=== PATIENT | female | born 1940 | race Caucasian/White ===

== ENCOUNTER 2018-05-04 17:58 | Inpatient (IN) | payer MEDICARE, OTHER ==
[~2018-05-04] VITALS: Ht 149.9 cm; Wt 53.1 kg
[~2018-05-04 17:58] MED LIST: ASPIRIN81 M1 PO; GABAPENTIN800 MG PO; OMEPRAZOLE40 MG PO; OXYBUTYNIN CHLOR5 MG PO; TENORMIN50 MG PO; [UNRECOGNIZED DRUG - OTHER] MC
--- NOTE | 2018-05-04 18:43 | NUR ---
ED Nurse Note: PT WALKED IN TO ER TODAY FROM HOME. AOX4. DAUGHTER AT BEDSIDE. PER DAUGHTER, PT HAS HAD INCREASING WEAKNESS X 3 DAYS AGO. PT DENIES DIZZINESS, NAUSEA OR VOMITING. PT'S DAUGHTER STATES SHE HAS HAD POOR ORAL INTAKE X 3 DAYS. PT'S DAUGHTER ALSO STATES PT HAS HAD A PRODUCTIVE COUGH X 2 DAYS AGO. NO COUGH PRESENT IN ER. RR18 @ 100% O2 SATURATION ON RA. NO SIGNS OF RESPIRATORY DISTRESS OR RETRACTIONS NOTED.
[2018-05-04 18:45] VITALS: BP 180/84
--- NOTE | 2018-05-04 19:10 | NUR ---
ED Nurse Note: REPORT GIVEN TO ANJELICA RANDLE.
--- NOTE | 2018-05-04 19:11 | NUR ---
ED Nurse Note: Received report from Shaquille/ ANJELICA. Pt is A/O X 4, Vital signs stable at this time, waitng for orders.
--- NOTE | 2018-05-04 19:30 | NUR ---
ED Nurse Note: Blood collected and sent to Lab.
[2018-05-04 19:39] LABS: BASOPHILS % (AUTO) 0.5 % (0.0-2.0); EOSINOPHILS % (AUTO) 2.6 % (0.0-3.0); HEMATOCRIT 39.5 % (37.0-47.0); HEMOGLOBIN 13.1 G/DL (12.0-16.0); LYMPHOCYTES % (AUTO) 17.5 % (20.0-45.0); MEAN CORPUSCULAR VOLUME 95 FL (80-99); MONOCYTES % (AUTO) 7.2 % (1.0-10.0); NEUTROPHILS % (AUTO) 72.2 % (45.0-75.0); PLATELET COUNT 246 K/UL (150-450); RED BLOOD COUNT 4.18 M/UL (4.20-5.40); RED CELL DISTRIBUTION WIDTH 12.7 % (11.6-14.8); WHITE BLOOD COUNT 10.7 K/UL (4.8-10.8)
[2018-05-04 19:47] LABS: ANION GAP 9 mmol/L (5-15); BLOOD UREA NITROGEN 14 mg/dL (7-18); CALCIUM 9.4 MG/DL (8.5-10.1); CARBON DIOXIDE 29 MMOL/L (21-32); CHLORIDE 98 MMOL/L (98-107); CREATININE 0.6 MG/DL (0.55-1.30); POTASSIUM 3.5 MMOL/L (3.5-5.1); SODIUM 136 MMOL/L (136-145)
[2018-05-04 19:52] LABS: ALANINE AMINOTRANSFERASE 14 U/L (12-78); ALBUMIN 3.6 G/DL (3.4-5.0); ALBUMIN/GLOBULIN RATIO 0.8 (1.0-2.7); ALKALINE PHOSPHATASE 111 U/L (46-116); ASPARTATE AMINO TRANSFERASE 23 U/L (15-37); BILIRUBIN,TOTAL 0.5 MG/DL (0.2-1.0)
[2018-05-04] MEDS ORDERED: GABAPENTIN100 MG ORAL (20:29)
[2018-05-04] MEDS ORDERED: SYSTANE COMPLET10 ML OP (20:32)
[2018-05-04] MEDS ORDERED: SINEMET 10-1001 EACH ORAL (20:32)
[2018-05-04] MEDS ORDERED: BACLOFEN10 MG ORAL (20:32)
[2018-05-04] MEDS ORDERED: KLONOPIN0.5 MG ORAL (20:32)
[2018-05-04] MEDS ORDERED: NUEDEXTA 20-101 EAC1 PO (20:33)
[2018-05-04 21:05] LABS: APPEARANCE,URINE CLEAR; BILIRUBIN, URINE NEGATIVE (NEGATIVE); GLUCOSE, URINE (UA) NEGATIVE (NEGATIVE); KETONES,URINE 1+ (NEGATIVE); LEUKOCYTE ESTERASE ,URINE 1+ (NEGATIVE); NITRITE,URINE NEGATIVE (NEGATIVE); PH,URINE 6.5 (4.5-8.0); PROTEIN,URINE 3+ (NEGATIVE); UROBILINOGEN,URINE 4 MG/DL (0.0-1.0)
[2018-05-04 21:07] LABS: COLOR,URINE YELLOW
--- NOTE | 2018-05-04 21:28 | Emergency Room Report ---
History of Present Illness General Chief Complaint: Generalized Weakness Source: Patient, Family Member Present Illness HPI 77-year-old female presents ED for evaluation. Daughter at bedside states that patient's been increasingly weak and lethargic for the last few days. Daughter states she was having flulike symptoms and likely given to her mother. Patient was also presenting with cough and congestion. Afebrile. Reduced appetite. No other aggravating relieving factors. Denies any other associated symptoms Allergies: Coded Allergies: Dairy (Verified Allergy, Severe, 05/04/18) diarrhea Patient History Past Medical History: HTN, dementia Past Surgical History: none Pertinent Family History: none Social History: Denies: smoking, alcohol use, drug use Last Menstrual Period: na Now: No Immunizations: UTD Reviewed Nursing Documentation: PMH: Agreed; PSxH: Agreed Nursing Documentation-PMH Past Medical History: No History, Except For Hx Cardiac Problems: Yes Hx Hypertension: Yes Hx Cancer: No Hx Gastrointestinal Problems: Yes Hx Neurological Problems: Yes - NEUROPATHY, PARKINSON'S, DEMENTIA Hx Neurologic Surgery: No - ANEURYSM HAD COILING ON 06/2011 Review of Systems All Other Systems: limited Physical Exam Vital Signs Date Time Temp Pulse Resp B/P (MAP) Pulse Ox O2 Delivery O2 Flow Rate FiO2 05/04/18 18:25 98.4 78 22 126/78 92 Room Air Sp02 EP Interpretation: reviewed, normal General Appearance: no apparent distress, lethargic Head: normocephalic Eyes: bilateral eye normal inspection, bilateral eye PERRL ENT: normal ENT inspection Neck: normal inspection Respiratory: chest non-tender, lungs clear, normal breath sounds, speaking full sentences Cardiovascular #1: regular rate, rhythm, no edema Gastrointestinal: normal bowel sounds, non tender, soft, non-distended, no guarding, no rebound Rectal: black stool Genitourinary: no CVA tenderness Musculoskeletal: normal inspection Neurologic: other - lethargic Psychiatric: other - lethargic Skin: normal inspection Lymphatic: normal inspection Medical Decision Making Diagnostic Impression: Primary Impression: Episode of generalized weakness Additional Impression: Flu-like symptoms ER Course Hospital Course 77-year-old female presenting to ED with generalized weakness Differential diagnoses include: Pneumonia, UTI, sepsis, dehydration, VA/ unstable angina Clinical course Patient placed on stretcher. On hospital monitor with stable vitals are ED course. After initial history and physical, I ordered labs, IV fluids, EKG, chest x-ray, blood cultures, UA. Labs - electrolytes ok, no leukocytosis, troponins negative, Lactic ok, UA no bacteria EKG - junctional ryhthm CXR - no acute process flu swab pending Abx given. Patient remains lethargic, reduced appetite. Will require admission Case discussed with Dr Noe and they agreed to admit patient to their service for further care and support I feel this is a highly complex case requiring extensive working including EKG/ Rhythm strip, Xray/CT/US, Blood/urine lab work, repeat exams while in ED, and administration of strong opiates/narcotics for pain control, admission to hospital or close patient follow up. Diagnosis - flu like symptoms, generalized weakness Patient admitted to floor in serious condition Labs Test 05/04/18 19:26 05/04/18 20:45 White Blood Count 10.7 K/UL (4.8-10.8) Red Blood Count 4.18 M/UL (4.20-5.40) Hemoglobin 13.1 G/DL (12.0-16.0) Hematocrit 39.5 % (37.0-47.0) Mean Corpuscular Volume 95 FL (80-99) Mean Corpuscular Hemoglobin 31.2 PG (27.0-31.0) Mean Corpuscular Hemoglobin Concent 33.0 G/DL (32.0-36.0) Red Cell Distribution Width 12.7 % (11.6-14.8) Platelet Count 246 K/UL (150-450) Mean Platelet Volume 5.8 FL (6.5-10.1) Neutrophils (%) (Auto) 72.2 % (45.0-75.0) Lymphocytes (%) (Auto) 17.5 % (20.0-45.0) Monocytes (%) (Auto) 7.2 % (1.0-10.0) Eosinophils (%) (Auto) 2.6 % (0.0-3.0) Basophils (%) (Auto) 0.5 % (0.0-2.0) Sodium Level 136 MMOL/L (136-145) Potassium Level 3.5 MMOL/L (3.5-5.1) Chloride Level 98 MMOL/L (98-107) Carbon Dioxide Level 29 MMOL/L (21-32) Anion Gap 9 mmol/L (5-15) Blood Urea Nitrogen 14 mg/dL (7-18) Creatinine 0.6 MG/DL (0.55-1.30) Estimat Glomerular Filtration Rate mL/min (>60) Glucose Level 101 MG/DL (74-106) Lactic Acid Level 1.00 mmol/L (0.4-2.0) Calcium Level 9.4 MG/DL (8.5-10.1) Total Bilirubin 0.5 MG/DL (0.2-1.0) Aspartate Amino Transf (AST/SGOT) 23 U/L (15-37) Alanine Aminotransferase (ALT/SGPT) 14 U/L (12-78) Alkaline Phosphatase 111 U/L (46-116) Total Protein 8.0 G/DL (6.4-8.2) Albumin 3.6 G/DL (3.4-5.0) Globulin 4.4 g/dL Albumin/Globulin Ratio 0.8 (1.0-2.7) Urine Color Yellow Urine Appearance Clear Urine pH 6.5 (4.5-8.0) Urine Specific [place] 1.015 (1.005-1.035) Urine Protein 3+ (NEGATIVE) Urine Glucose (UA) Negative (NEGATIVE) Urine Ketones 1+ (NEGATIVE) Urine Blood 5+ (NEGATIVE) Urine Nitrite Negative (NEGATIVE) Urine Bilirubin Negative (NEGATIVE) Urine Urobilinogen 4 MG/DL (0.0-1.0) Urine Leukocyte Esterase 1+ (NEGATIVE) Urine RBC Tntc /HPF (0 - 2) Urine WBC 2-4 /HPF (0 - 2) Urine Squamous Epithelial Cells Few /LPF (NONE/OCC) Urine Bacteria Few /HPF (NONE) EKG Diagnostic Results Rate: normal Rhythm: other - junctional ST Segments: no acute changes ASA given to the pt in ED: No Rhythm Strip Diag. Results EP Interpretation: yes Rhythm: no PVC's, no ectopy Chest X-Ray Diagnostic Results Chest X-Ray Diagnostic Results : Chest X-Ray Ordered: Yes # of Views/Limited/Complete: 1 View Indication: Other EP Interpretation: Yes Interpretation: no consolidation, no effusion, no pneumothorax, no acute cardiopulmonary disease Impression: No acute disease Electronically Signed by: Electronically signed by Robert Mendoza MD Last Vital Signs Date Time Temp Pulse Resp B/P (MAP) Pulse Ox O2 Delivery O2 Flow Rate FiO2 3/27/19 18:45 98.5 73 18 180/84 100 Room Air Status: improved Disposition: ADMITTED INPATIENT Condition: Serious Referrals: Jeffrey Noe MD (PCP) Robert Mendoza MD May 04, 2018 21:28
--- NOTE | 2018-05-04 21:44 | NUR ---
TRANSFER TO FLOOR: Patient transferred to /,310 as ordered . Report given to Devora/ANJELICA. Belongings sent with Pt and rechecked with RN. Family at bed side.
--- NOTE | 2018-05-04 22:00 | NUR ---
NURSE NOTES Patient received from My R.N. from ED patient sent from DR. olivares for increase weakness and having cough producing cough with plegm yellow color patient denies any pain. but states tired . patient vss, afebrile . no sob / no n/v noted. patient no personal belonging. call light eulalio baltazar .bedin lowposition at all times . will contnue to monitor md and family notified and awre patient location.
[2018-05-04 22:10] VITALS: BP 140/86
[2018-05-05] MEDS ORDERED: Azithromycin 500 MG in D5W 275 ML IV SCH (06:00)
--- NOTE | 2018-05-05 07:30 | NUR ---
HAND-OFF: Report given to Alisha Worthington
[2018-05-05] MEDS: Levodopa/Carbidopa 10/100 tab ORAL SCH ×5 (07:41→20:56)
--- NOTE | 2018-05-05 08:00 | NUR ---
NURSE NOTES: Patient is awake and alert to name,respirations are unlabored,patient at bedside,patient states she is not hungry at this time.Call light within reach,bed alarm is on.
[2018-05-05 08:15] VITALS: BP 164/67
[2018-05-05] MEDS ORDERED: clonazePAM 0.5mg tab ORAL SCH (09:00)
[2018-05-05] MEDS: Heparin 5000 units/ml inj SUBQ SCH ×2 (09:20→21:05)
--- NOTE | 2018-05-05 11:08 | NUR ---
CASE MANAGEMENT:REVIEW 05/05/18 77 YR OLD FEMALE FROM HOME CC: SENT BY DR BISHOP D/T WEAKNESS AND COUGH SI: GENERALIZED WEAKNESS 98.5 78 22 126/78 92% ON RA IS: 500CC NS BOLUS CHEST XRAY BLOOD : TO MED/SURG UNIT
[2018-05-05 12:05] VITALS: BP 131/69
--- NOTE | 2018-05-05 12:26 | Diagnostic Imaging Report ---
Indication: Cough Comparison: None A single view chest radiograph was obtained. Findings: There are old rib fractures on the right. Cardiomegaly is present. Lungs are clear. Bones are osteopenic. Fusion rods noted within the mid thoracic and the lumbar spine. IMPRESSION: No acute cardiopulmonary disease
--- NOTE | 2018-05-05 13:09 | Consultation ---
Consult Note Consult Note asked to eval for fluid & bp management per Dr Jeffrey olivares 77-year-old female presents ED for evaluation. Daughter at bedside states that patient's been increasingly weak and lethargic for the last few days. Daughter states she was having flulike symptoms and likely given to her mother. Patient was also presenting with cough and congestion. Afebrile. Reduced appetite. No other aggravating relieving factors. Denies any other associated symptoms Allergies: Dairy (Verified Allergy, Severe, 05/04/18) diarrhea Past Medical History: HTN, dementia Past Surgical History: none Reviewed Nursing Documentation: PMH: Agreed; PSxH: Agreed Past Medical History: No History, Except For Hx Cardiac Problems: Yes Hx Hypertension: Yes Hx Gastrointestinal Problems: Yes Hx Neurological Problems: Yes - NEUROPATHY, PARKINSON'S, DEMENTIA Hx Neurologic Surgery: No - ANEURYSM HAD COILING ON 06/2011 1. Compression fracture of spine. 2. Fracture of the pubis symphysis, bilateral, closed. 3. Hypertension. 4. Hypernatremia. 5. Osteoporosis. 6. Renal stone. 7. History of right shoulder dislocation. 8. Spinal stenosis. 9. Recurrent urinary tract infection. 10. Question Parkinson disease. 11. Memory loss. 12. Cerebral aneurysm. PAST SURGICAL HISTORY: 1. Cerebral angiogram, coiling. 2. Back surgery. 3. . 4. Colonoscopy. 5. Endoscopy. examined data reviewed . Assessment/Plan UTI Encephalopathy Dementia HTN Parkinsons bronchitis down on mind altering meds urine c/s rocephin BP med adjustment iv hydration check TSh B12 .... Yoan Gordon MD May 05, 2018 13:08
[2018-05-05] MEDS ORDERED: clonazePAM 0.5mg tab ORAL PRN (13:15)
[2018-05-05] MEDS ORDERED: cefTRIAXone 1 GM in D5W 55 ML IVPB ONE (14:00)
[2018-05-05 16:00] VITALS: BP 124/68
[2018-05-05] MEDS ORDERED: Tubing IV Secondary IV ONE (17:07)
[2018-05-05] MEDS ORDERED: NS 275ml ONE (17:07)
--- NOTE | 2018-05-05 19:00 | NUR ---
NURSE NOTES: Patient resting,turned and postion,IV fluids continues to infuse as ordered.Bed alarm is on,call light within reach,Urine culture sent earlier as ordered.
--- NOTE | 2018-05-05 19:25 | NUR ---
NURSE NOTES:Patient received from Bernice Worthington patient A/A/AOX4 . Patient denies any pain at this time . no s/s of distress noted ivf infusing well . call light within reach. bed in low position at all times will continue to monitor
--- NOTE | 2018-05-05 19:25 | NUR ---
HAND-OFF: Report given to Devora PARNELL.
[2018-05-05 20:00] VITALS: BP 134/69
[2018-05-05 20:01] VITALS: BP 134/69
--- NOTE | 2018-05-05 20:42 | Cardiology Progress Note ---
Assessment/Plan Assessment/Plan [id number] Objective Last 24 Hour Vital Signs Date Time Temp Pulse Resp B/P (MAP) Pulse Ox O2 Delivery O2 Flow Rate FiO2 05/05/18 16:00 98.2 70 20 124/68 (86) 98 70 05/05/18 12:05 97.9 72 18 131/69 (89) 96 72 05/05/18 09:23 76 148/76 05/05/18 09:00 Room Air 05/05/18 08:15 97.4 83 20 164/67 (99) 95 83 05/05/18 07:48 82 17 Room Air 21 05/04/18 22:10 Room Air 05/04/18 22:10 98.5 83 18 140/86 (104) 100 05/04/18 21:44 98.3 81 18 144/69 100 Room Air 81 Intake and Output 05/04/18 05/05/18 19:00 07:00 Intake Total 520 ml Balance 520 ml Intake Oral 520 ml # Voids 1 3 Laboratory Tests Test 05/04/18 20:45 Urine Color Yellow Urine Appearance Clear Urine pH 6.5 (4.5-8.0) Urine Specific [place] 1.015 (1.005-1.035) Urine Protein 3+ (NEGATIVE) H Urine Glucose (UA) Negative (NEGATIVE) Urine Ketones 1+ (NEGATIVE) H Urine Blood 5+ (NEGATIVE) H Urine Nitrite Negative (NEGATIVE) Urine Bilirubin Negative (NEGATIVE) Urine Urobilinogen 4 MG/DL (0.0-1.0) H Urine Leukocyte Esterase 1+ (NEGATIVE) H Urine RBC Tntc /HPF (0 - 2) H Urine WBC 2-4 /HPF (0 - 2) Urine Squamous Epithelial Cells Few /LPF (NONE/OCC) Urine Bacteria Few /HPF (NONE) Microbiology Date/Time Source Procedure Growth Status 05/04/18 21:45 Nasal Nares Influenza Types A,B Antigen (JOHN) - Final Complete Mario Durbin MD May 05, 2018 20:42
[2018-05-05] MEDS: Nuedexta Capsule 20/10mg ORAL SCH (20:56)
[2018-05-05] MEDS: Albuterol ud Inhalation HHN SCH (23:40)
[2018-05-06] VITALS: BP 142/72
--- NOTE | 2018-05-06 01:00 | Consultation ---
DATE OF CONSULTATION: 05/05/2018 CARDIOLOGY CONSULTATION CONSULTING PHYSICIAN: Mario Durbin M.D. REFERRING PHYSICIAN: Jeffrey Noe M.D. REASON FOR REFERRAL: Congestion. HISTORY OF PRESENT ILLNESS: This is a 77-year-old female, who has been admitted to the hospital because of various symptoms including chest congestion, shortness of breath, and generalized weakness, was brought to the emergency room on the by her daughter with increasing weakness and lethargy for the past few days. Flu-like symptoms were noted by the family and the patient was brought to the emergency room. Evaluation was initiated including flu scan that was basically negative. The patient is admitted to the hospital. This consultation has been requested. On detail questioning, the patient does admit to having shortness of breath. She uses three pillows, but she feels this for comfort not specific for shortness of breath. She does minimally ambulate with assistance of the family members. She does have shortness of breath and questionable history of chest pains. She has palpitation. She does have dizziness and lightheadedness on standing. PAST MEDICAL HISTORY: Positive for history of compression fractures, history of hypertension, hyponatremia, osteoporosis, renal insufficiency, and shoulder dislocation, spinal stenosis, and recurrent urinary tract infections. PAST SURGICAL HISTORY: She has had spine surgery on prior occasions, , and colonoscopy. ALLERGIES: She has no known drug allergies. SOCIAL HISTORY: She does not smoke or drink alcoholic beverages. No drug use. She lives at home with her daughter. Her son is at the bedside at the present time. REVIEW OF SYSTEMS: GASTROINTESTINAL: She has some diarrhea apparently last night, otherwise no black or bloody stools. GENITOURINARY: Possibly some burning on urination. PULMONARY: Denies any coughing or wheezing. PHYSICAL EXAMINATION: GENERAL: Shows to be elderly female, in no respiratory distress. NECK: Supple. No jugular venous distention. LUNGS: Appear to be clear to auscultation and percussion. CARDIAC: Regular rate and rhythm. A faint systolic ejection murmur. No RV lifts, heaves, thrills, or gallops noted. ABDOMEN: Soft, nontender. Positive bowel sounds. EXTREMITIES: No clubbing, cyanosis, nor edema. LABORATORY VALUES: Urinalysis, 3+ protein, 5+ blood, too numerous to count rbc's, 2 to 4 wbc's. White count of 10.7, hemoglobin 13.1, and platelet count of 246. Sodium 136, potassium 3.5, chloride 98, bicarbonate 29, BUN 14, creatinine 0.9, and glucose of 101. Lactic acid of 1 and liver function tests are normal. Alkaline phosphatase of 111. A chest x-ray performed in the emergency room shows no acute cardiopulmonary processes, old rib fractures on the right side. Cardiomegaly is present. EKG is normal sinus rhythm, and no ST or T-wave abnormalities. ASSESSMENT AND PLAN: 1. Chest congestion. 2. Generalized weakness. 3. Shortness of breath. 4. History of hyponatremia. 5. History of hypertension. This patient was seen in cardiac consultation. The patient's vital signs and blood pressure fluctuates between 124/68 to 164/67, temperature is 98.2 degrees, heart rate 70. She does not appear to be in any respiratory distress at the present time. There is no signs or symptoms of acute coronary syndrome or congestive heart failure. Natriuretic peptide, cardiac enzymes, and EKG will be ordered for tomorrow morning and echocardiogram will also be ordered for tomorrow. Dr. Noe, thank you for allowing me to participate in the care of this patient. Mario Durbin M.D. DR: BRIAN JOB#: [id number] CC:
--- NOTE | 2018-05-06 03:30 | History and Physical Report ---
DATE OF ADMISSION: 05/04/2018 HISTORY OF PRESENT ILLNESS: The patient was seen and evaluated in the office and presented to the ER to be evaluated. I notified Dr. Gordon to see the patient as well. The patient is a 71-year-old female with history of scoliosis, Parkinson disease, history of kyphosis, has had previous back surgery. The patient had a slight encephalopathy. She had upper respiratory symptoms. Daughter was also having wheezing. The patient is seen and evaluated and subsequently admitted for further evaluation. PAST MEDICAL HISTORY: 1. Compression fracture of spine. 2. Fracture of the pubis symphysis, bilateral, closed. 3. Hypertension. 4. Hypernatremia. 5. Osteoporosis. 6. Renal stone. 7. History of right shoulder dislocation. 8. Spinal stenosis. 9. Recurrent urinary tract infection. 10. Question Parkinson disease. 11. Memory loss. 12. Cerebral aneurysm. PAST SURGICAL HISTORY: 1. Cerebral angiogram, coiling. 2. Back surgery. 3. . 4. Colonoscopy. 5. Endoscopy. SOCIAL HISTORY: She lives with her family. FAMILY HISTORY: Noncontributory. MEDICATIONS: Medications on the patient includes: 1. Baclofen. 2. Clonazepam. 3. Gabapentin. 4. . 5. Carbidopa. The patient was recently when admitted was given ceftriaxone and azithromycin as well as bronchodilators. PHYSICAL EXAMINATION: GENERAL: Short stature . She is kyphotic. NECK: Very short neck with a tilted neck. No JVD. HEART: S1 and S2. LUNGS: End-expiratory wheezing. ABDOMEN: Soft. EXTREMITIES: No clubbing or cyanosis. LABORATORY DATA: Laboratory data was obtained in the the patient. UA, 3+ protein, 1+ ketones, 5+ blood, 4+ urobilinogen, 1+ leukocyte esterase, 2 to 4 WBC. Chemistry that was obtained showed sodium of 136, potassium 3.5, chloride 98, bicarbonate 29, BUN 14, and creatinine 0.6. AST and ALT is okay. WBC count was obtained, which is elevated at 10.7. Hematocrit is 39.5 and platelet is 246,000. IMPRESSION: This is an unfortunate female, who was admitted to the hospital for multiple issues. 1. Asthmatic bronchitis. Given bronchodilator as well as antibiotics. 2. UTI. She is on antibiotics. 3. Parkinson disease. 4. Functional decline. 5. Mild encephalopathy. 6. History of hypertension. PLAN: Monitor the patient closely. Vitals were reviewed and the patient was seen. The patient is doing well. The patient has significant functional decline. Family wants the patient to be transferred to a correction upon discharge. Continue versus rehab center. Jeffrey Noe M.D. DR: LYUDMILA JOB#: [id number] CC:
[2018-05-06 04:00] VITALS: BP 142/84
[2018-05-06 06:40] LABS: BASOPHILS % (AUTO) 0.9 % (0.0-2.0); EOSINOPHILS % (AUTO) 5.2 % (0.0-3.0); HEMOGLOBIN 11.8 G/DL (12.0-16.0); LYMPHOCYTES % (AUTO) 16.9 % (20.0-45.0); MEAN CORPUSCULAR VOLUME 94 FL (80-99); MONOCYTES % (AUTO) 7.3 % (1.0-10.0); NEUTROPHILS % (AUTO) 69.8 % (45.0-75.0); PLATELET COUNT 224 K/UL (150-450); RED BLOOD COUNT 3.72 M/UL (4.20-5.40); RED CELL DISTRIBUTION WIDTH 12.5 % (11.6-14.8); WHITE BLOOD COUNT 8.3 K/UL (4.8-10.8)
[2018-05-06 07:00] LABS: ALANINE AMINOTRANSFERASE 15 U/L (12-78); ALBUMIN/GLOBULIN RATIO 0.8 (1.0-2.7); ALKALINE PHOSPHATASE 98 U/L (46-116); ANION GAP 10 mmol/L (5-15); ASPARTATE AMINO TRANSFERASE 20 U/L (15-37); BILIRUBIN,TOTAL 0.4 MG/DL (0.2-1.0); BLOOD UREA NITROGEN 10 mg/dL (7-18); CALCIUM 8.6 MG/DL (8.5-10.1); CARBON DIOXIDE 26 MMOL/L (21-32); CHLORIDE 101 MMOL/L (98-107); CHOLESTEROL 143 MG/DL (< 200); CREATINE KINASE 72 U/L (26-308); CREATININE 0.5 MG/DL (0.55-1.30); GAMMA GLUTAMYL TRANSPEPTIDASE 21 U/L (5-85); HDL CHOLESTEROL 45 MG/DL (40-60); PHOSPHORUS 2.9 MG/DL (2.5-4.9); POTASSIUM 2.8 MMOL/L (3.5-5.1); SODIUM 137 MMOL/L (136-145); TRIGLYCERIDES 88 MG/DL (30-150)
[2018-05-06] MEDS: Levodopa/Carbidopa 10/100 tab ORAL SCH ×5 (07:23→18:07)
--- NOTE | 2018-05-06 07:30 | NUR ---
NURSE NOTES: Received pt from PARMJIT DUARTE. Pt is confused and orient x3. pt is in RA. No SOB or acute respiratory distress noted. pt has intact iv access RH 20G is running well. All needs attended, bed is locked and is in the lowest position. call light within easy reach. will continue to monitor.
--- NOTE | 2018-05-06 07:50 | NUR ---
HAND-OFF: Report given to tito Hicks
[2018-05-06] MEDS: Albuterol ud Inhalation HHN SCH ×3 (07:58→23:09)
[2018-05-06 08:00] VITALS: BP 99/65
[2018-05-06] MEDS: Nuedexta Capsule 20/10mg ORAL SCH ×2 (09:29→22:51)
[2018-05-06] MEDS: Heparin 5000 units/ml inj SUBQ SCH ×2 (09:30→22:52)
--- NOTE | 2018-05-06 11:09 | NUR ---
NURSE NOTES: Dr Noe is aware blood culture is possitive cocci in cultures x2 bottles. gave order vancomycin 1G QD, Noted and carried out. will continue to monitor.
[2018-05-06 12:00] VITALS: BP 101/62
[2018-05-06] MEDS ORDERED: Vancomycin 1 GM in D5W 275 ML IVPB SCH (13:00)
--- NOTE | 2018-05-06 13:19 | Consultation ---
History of Present Illness General Date patient seen: May 06, 2018 Chief Complaint: Generalized Weakness Present Illness HPI 77 y/o F w/ hx of Dementia, Parkinson's, Osteoporosis w/ compression fractures, neprholithiasis, neuropathy, brain aneurysm sp coiling 06/2011, HTN, shoulder dislocation, spinal stenosis, spinal surgery, recurrent UTIs presents to ED on with congestion, cough, decreased appetite, SOB, generalized weakness Allergies: Coded Allergies: Dairy (Verified Allergy, Severe, 05/04/18) diarrhea Medication History Scheduled Atenolol* (Tenormin*), 50 MG PO DAILY, (Reported) Baclofen* (Baclofen*), 10 MG ORAL THREE TIMES A DAY, (Reported) Carbidopa/Levodopa* (Sinemet 10-100 Mg Tablet*), 1 TAB ORAL FIVE TIMES A DAY, ( Reported) Clonazepam* (Klonopin*), 0.5 MG ORAL DAILY, (Reported) Dextromethorphan Hbr/Quinidine (Nuedexta 20-10 Mg Capsule), 1 EACH PO BID, ( Reported) Gabapentin* (Gabapentin*), 100 MG ORAL QID, (Reported) Omeprazole (Omeprazole), 40 MG PO DAILY, (Reported) Scheduled PRN Propylene Glycol (Systane Complete), 10 ML OP for Dry Eyes, (Reported) Discontinued Medications Gabapentin* (Gabapentin*), 500 MG PO DAILY, (Reported) Discontinued Reason: Prescription changed Patient History Healthcare decision maker Resuscitation status Full Code Advanced Directive on File No Patient History Narrative Pmhx: as above Shx:She does not smoke or drink alcoholic beverages. No drug use. She lives at home with her daughter. Her son is at the bedside at the present time. Fhx non contributory Review of Systems All Other Systems: negative except mentioned in HPI Physical Exam Physical Exam Narrative GENERAL: Shows to be elderly female, in no respiratory distress. NECK: Supple. No jugular venous distention. LUNGS: Appear to be clear to auscultation and percussion. CARDIAC: Regular rate and rhythm. A faint systolic ejection murmur. No RV lifts, heaves, thrills, or gallops noted. ABDOMEN: Soft, nontender. Positive bowel sounds. EXTREMITIES: No clubbing, cyanosis, nor edema. Last 24 Hour Vital Signs Date Time Temp Pulse Resp B/P (MAP) Pulse Ox O2 Delivery O2 Flow Rate FiO2 05/06/18 12:00 98.0 68 18 101/62 (75) 95 05/06/18 09:00 74 99/65 05/06/18 09:00 Room Air 05/06/18 08:08 74 18 100 Room Air 21 05/06/18 08:00 98.2 66 18 99/65 (76) 95 05/06/18 07:58 72 17 Room Air 21 05/06/18 07:58 72 17 99 Room Air 21 05/06/18 04:00 98.0 78 20 142/84 (103) 98 05/06/18 00:00 98.8 82 20 142/72 (95) 96 05/05/18 23:51 75 18 100 Room Air 21 05/05/18 23:40 75 18 98 Room Air 21 05/05/18 23:40 75 18 Room Air 21 05/05/18 21:55 75 17 Room Air 21 05/05/18 21:00 Room Air 05/05/18 20:01 99.7 78 18 134/69 (90) 95 05/05/18 20:00 99.7 78 18 134/69 (90) 91 05/05/18 16:00 98.2 70 20 124/68 (86) 98 70 Intake and Output 05/05/18 05/06/18 18:59 06:59 Intake Total 645 ml 1480 ml Output Total 702 ml Balance -57 ml 1480 ml Intake Oral 420 ml 880 ml IV Total 225 ml 600 ml Output Urine Total 700 ml Stool Total 2 ml # Voids 4 Laboratory Tests Test 05/06/18 04:55 White Blood Count 8.3 K/UL (4.8-10.8) Red Blood Count 3.72 M/UL (4.20-5.40) L Hemoglobin 11.8 G/DL (12.0-16.0) L Hematocrit 35.0 % (37.0-47.0) L Mean Corpuscular Volume 94 FL (80-99) Mean Corpuscular Hemoglobin 31.8 PG (27.0-31.0) H Mean Corpuscular Hemoglobin Concent 33.8 G/DL (32.0-36.0) Red Cell Distribution Width 12.5 % (11.6-14.8) Platelet Count 224 K/UL (150-450) Mean Platelet Volume 5.7 FL (6.5-10.1) L Neutrophils (%) (Auto) 69.8 % (45.0-75.0) Lymphocytes (%) (Auto) 16.9 % (20.0-45.0) L Monocytes (%) (Auto) 7.3 % (1.0-10.0) Eosinophils (%) (Auto) 5.2 % (0.0-3.0) H Basophils (%) (Auto) 0.9 % (0.0-2.0) Sodium Level 137 MMOL/L (136-145) Potassium Level 2.8 MMOL/L (3.5-5.1) L Chloride Level 101 MMOL/L (98-107) Carbon Dioxide Level 26 MMOL/L (21-32) Anion Gap 10 mmol/L (5-15) Blood Urea Nitrogen 10 mg/dL (7-18) Creatinine 0.5 MG/DL (0.55-1.30) L Estimat Glomerular Filtration Rate mL/min (>60) Glucose Level 100 MG/DL (74-106) Hemoglobin A1c 5.8 % (4.3-6.0) Uric Acid 2.3 MG/DL (2.6-7.2) L Calcium Level 8.6 MG/DL (8.5-10.1) Phosphorus Level 2.9 MG/DL (2.5-4.9) Magnesium Level 1.4 MG/DL (1.8-2.4) L Total Bilirubin 0.4 MG/DL (0.2-1.0) Gamma Glutamyl Transpeptidase 21 U/L (5-85) Aspartate Amino Transf (AST/SGOT) 20 U/L (15-37) Alanine Aminotransferase (ALT/SGPT) 15 U/L (12-78) Alkaline Phosphatase 98 U/L (46-116) Total Creatine Kinase 72 U/L (26-308) Troponin I 0.007 ng/mL (0.000-0.056) C-Reactive Protein, Quantitative 5.8 mg/dL (0.00-0.90) H Pro-B-Type Natriuretic Peptide 523 pg/mL (0-125) H Total Protein 6.8 G/DL (6.4-8.2) Albumin 3.0 G/DL (3.4-5.0) L Globulin 3.8 g/dL Albumin/Globulin Ratio 0.8 (1.0-2.7) L Triglycerides Level 88 MG/DL (30-150) Cholesterol Level 143 MG/DL (< 200) LDL Cholesterol 82 mg/dL (<100) HDL Cholesterol 45 MG/DL (40-60) Cholesterol/HDL Ratio 3.2 (3.3-4.4) L Vitamin B12 Level 388 PG/ML (193-986) Thyroid Stimulating Hormone (TSH) 2.516 uiU/mL (0.358-3.740) Microbiology Date/Time Source Procedure Growth Status 05/05/18 16:30 Urine,Clean Catch Urine Culture - Preliminary Resulted Height (Feet): 4 Height (Inches): 11.00 Weight (Pounds): 119 Medications Current Medications Medications (Trade) Dose Ordered Sig/Eliane Route PRN Reason Start Time Stop Time Status Last Admin Dose Admin Albuterol Sulfate (Proventil) 2.5 mg Q8HRT HHN 05/05/18 07:00 05/10/18 06:59 05/06/18 07:58 Atenolol (Tenormin) 50 mg DAILY ORAL 05/06/18 09:00 06/04/18 08:59 Baclofen (Lioresal) 10 mg TIDPRN PRN ORAL muscle spasm 05/05/18 13:15 06/04/18 13:14 Carbidopa/Levodopa (Sinemet 10/100) 1 tab FIVE TIMES A DAY ORAL 05/05/18 07:00 06/04/18 06:59 05/06/18 09:33 Ceftriaxone Sodium 1 gm/ Dextrose 55 ml @ 110 mls/hr Q24H IVPB 05/06/18 13:00 05/13/18 12:59 Clonazepam (KlonoPIN) 0.5 mg HSPRN PRN ORAL insomnia 05/05/18 13:15 05/12/18 13:14 Dextromethorphan/ Quinidine (Nuedexta Capsule) 1 cap Q12HR ORAL 05/05/18 21:00 06/04/18 20:59 05/06/18 09:29 Dextrose/ Electrolytes 1,000 ml @ 75 mls/hr [id number] IV 05/05/18 13:15 06/04/18 13:14 05/06/18 03:01 Gabapentin (Neurontin) 100 mg BID ORAL 05/05/18 18:00 06/04/18 08:59 05/06/18 09:29 Heparin Sodium (Porcine) (Heparin 5000 units/ml) 5,000 units EVERY 12 HOURS SUBQ 05/05/18 09:00 06/04/18 08:59 05/06/18 09:30 Magnesium Sulfate 100 ml @ 100 mls/hr Q1H IVPB 05/06/18 09:30 05/06/18 13:29 05/06/18 12:46 Potassium Chloride (K-Dur) 40 meq TWICE A DAY ORAL 05/06/18 09:15 06/05/18 09:14 05/06/18 09:38 Vancomycin HCl (Vanco rx to dose) 1 ea DAILY PRN MISC Per rx protocol 05/06/18 11:30 06/05/18 11:29 Vancomycin HCl 750 mg/Sodium Chloride 275 ml @ 183.333 mls/hr Q24H IVPB 05/07/18 13:00 05/12/18 12:59 Vancomycin HCl 1 gm/Dextrose 275 ml @ 183.708 mls/hr ONCE IVPB 05/06/18 13:00 05/06/18 15:00 Assessment/Plan Assessment/Plan Abx: IV Vancomcin 05/06- Ceftriaxone 05/05- Levaquin x1 05/04 azithromycin 05/05 x1 Assessment: Acute bronchitis -CXR: No acute cardiopulmonary disease -influenza sc neg Gram positive bacteremia- real vs contaminant -Bcx 03/14 GPC clusters Afebrile No leukocytosis -u/a neg; ucx p Dementia Parkinson's Osteoporosis w/ compression fractures nephrolithiasis neuropathy brain aneurysm sp coiling 06/2011 HTN shoulder dislocation spinal stenosis spinal surgery recurrent UTIs Plan: -Continue empiric IV Vancomycin #1 pending ID GPC clusters and repeat Bcx -Continue empiric Ceftriaxone #2 (abx d #04/12) for acute bronchitis -f.u cx -Monitor CBC/CMP, temperatures -aspiration precautions Thank you for this consultation. Will continue to follow along with you. Jazzmine Padron M.D. May 06, 2018 13:19
[2018-05-06] MEDS: cefTRIAXone 1 GM in D5W 55 ML IVPB SCH (13:33)
--- NOTE | 2018-05-06 14:50 | NUR ---
ST NOTE: BEDSIDE SWALLOW EVAL RECEIVED BEDSIDE SWALLOW EVAL ORDER CHART REVIEWED PRIOR THE EVALUATION PT IS A 77-YEAR-OLD [place]-SPEAKING FEMALE(ABLE TO UNDERSTAND SOME HUNGARIAN) DUE TO WEAKNESS AND FLU-LIKE(UPPER RESP) SYMPTOMS. DYSPHAGIA RISK FACTORS: PARKINSON'S DZ, ANEURYSM HAD COILING ON 06/2011, CARDIAC DISORDER, HTN, GERD, BACK SURGERY(3 YRS AGO), H/O SCOLIOSIS, H/O KYPHOSIS. PLOF: PT RESIDES AT HOME WITH FAMILY. CURRENT STATUS: PT SEEN AT BEDSIDE IN PM. ALERT, COOPERATIVE, FOLLOWS SIMPLE DIRECTIONS. PER NURSING STAFF, PT TOLERATED REGULAR DIET WITH THIN LIQUIDS WITHOUT OVERT S/S OF ASPIRATION, HOWEVER, PT REQUIRED ASSISTANCE DURING MEALS. INVOLUNTARY MOVEMENT W/HEAD WAS NOTED. GIVEN PO TRIALS: THIN(TSP/STRAW-ONE SIP), NECTAR THICK(TSP), PUREE(TSP) AND CRACKER INITIAL IMPRESSION: PROBABLE MILD OR WORSENED OROPHARYNGEAL DYSPHAGIA VOICE TREMOR WAS NOTED. MIN TO MILDLY INCREASED ORAL TRANSIT TIME AND OROPHARYNGEAL TRANSIT TIME, FAIR TO GOOD LARYNGEAL ELEVATION, NO OVERT S/S OF ASPIRATION. DUE TO PT HAS H/O PARKINSON'S DZ, PT HAS RISK FOR (SILENT) ASPIRATION. RECOMMENDATIONS: 1. CHANGED DIET TO CARDIAC MECH SOFT(CHOPPED) WITH THIN LIQUIDS 2. STRICT ASPIRATION/REFLUX PRECAUTIONS WITH 1TO1 ASSIST 3. PT WILL BENEFIT FROM MODIFIED BARIUM SWALLOW STUDY TO OBJECTIVELY ASSESS PT'S SWALLOWING AND R/O ANY ASPIRATION RISK AND ETIOLOGY. 4. SPEECH/LANGUAGE/COGNITION/VOICE EVAL POSTED ASPIRATION/REFLUX PRECAUTIONS SIGN D/W DESMOND DEJESUS AND THE STAFF
[2018-05-06 16:00] VITALS: BP 142/84
--- NOTE | 2018-05-06 16:42 | Nephrology Progress Note ---
Assessment/Plan Problem List: (1) UTI (urinary tract infection) (2) Encephalopathy due to infection (3) HTN (hypertension) (4) Parkinson disease Assessment UTI Encephalopathy Dementia HTN Parkinsons bronchitis Plan down on mind altering meds urine c/s rocephin BP med adjustment iv hydration check TSh B12 .... Subjective ROS Limited/Unobtainable: No Constitutional: Reports: malaise Objective Objective Last 24 Hour Vital Signs Date Time Temp Pulse Resp B/P (MAP) Pulse Ox O2 Delivery O2 Flow Rate FiO2 05/06/18 16:00 98.4 81 20 142/84 (103) 100 05/06/18 15:45 77 18 100 Room Air 21 05/06/18 15:37 74 17 99 Room Air 21 05/06/18 12:00 98.0 68 18 101/62 (75) 95 05/06/18 09:00 74 99/65 05/06/18 09:00 Room Air 05/06/18 08:08 74 18 100 Room Air 21 05/06/18 08:00 98.2 66 18 99/65 (76) 95 05/06/18 07:58 72 17 Room Air 21 05/06/18 07:58 72 17 99 Room Air 21 05/06/18 04:00 98.0 78 20 142/84 (103) 98 05/06/18 00:00 98.8 82 20 142/72 (95) 96 05/05/18 23:51 75 18 100 Room Air 21 05/05/18 23:40 75 18 98 Room Air 21 05/05/18 23:40 75 18 Room Air 21 05/05/18 21:55 75 17 Room Air 21 05/05/18 21:00 Room Air 05/05/18 20:01 99.7 78 18 134/69 (90) 95 05/05/18 20:00 99.7 78 18 134/69 (90) 91 Intake and Output 05/05/18 05/06/18 18:59 06:59 Intake Total 645 ml 1480 ml Output Total 702 ml Balance -57 ml 1480 ml Intake Oral 420 ml 880 ml IV Total 225 ml 600 ml Output Urine Total 700 ml Stool Total 2 ml # Voids 4 Laboratory Tests 05/06/18 04:55: White Blood Count 8.3, Red Blood Count 3.72L, Hemoglobin 11.8L, Hematocrit 35.0L , Mean Corpuscular Volume 94, Mean Corpuscular Hemoglobin 31.8H, Mean Corpuscular Hemoglobin Concent 33.8, Red Cell Distribution Width 12.5, Platelet Count 224, Mean Platelet Volume 5.7L, Neutrophils (%) (Auto) 69.8, Lymphocytes ( %) (Auto) 16.9L, Monocytes (%) (Auto) 7.3, Eosinophils (%) (Auto) 5.2H, Basophils (%) (Auto) 0.9, Sodium Level 137, Potassium Level 2.8L, Chloride Level 101, Carbon Dioxide Level 26, Anion Gap 10, Blood Urea Nitrogen 10, Creatinine 0.5L, Estimat Glomerular Filtration Rate , Glucose Level 100, Hemoglobin A1c 5.8, Uric Acid 2.3L, Calcium Level 8.6, Phosphorus Level 2.9, Magnesium Level 1.4L, Total Bilirubin 0.4, Gamma Glutamyl Transpeptidase 21, Aspartate Amino Transf (AST/SGOT) 20, Alanine Aminotransferase (ALT/SGPT) 15, Alkaline Phosphatase 98, Total Creatine Kinase 72, Troponin I 0.007, C-Reactive Protein, Quantitative 5.8H, Pro-B-Type Natriuretic Peptide 523H, Total Protein 6.8, Albumin 3.0L, Globulin 3.8, Albumin/Globulin Ratio 0.8L, Triglycerides Level 88, Cholesterol Level 143, LDL Cholesterol 82, HDL Cholesterol 45, Cholesterol/HDL Ratio 3.2L, Vitamin B12 Level 388, Thyroid Stimulating Hormone ( TSH) 2.516 Height (Feet): 4 Height (Inches): 11.00 Weight (Pounds): 119 General Appearance: no apparent distress Cardiovascular: normal rate Respiratory/Chest: decreased breath sounds Abdomen: soft Yoan Gordon MD May 06, 2018 16:42
--- NOTE | 2018-05-06 18:21 | NUR ---
CASE MANAGEMENT: REVIEW SI: ASTHMATIC BRONCHITIS . UTI T 98.4 HR 81 RR 20 BP 99/65 SAT 95% ROOM AIR H/H 11.8/35.0 K 2.8 IS: VANCO IV Q24HR CEFTRIAXONE IV Q24HR K-DUR 40mEq PO BID D5 NS IVF @ 75ML/HR BLOOD CULTURE PENDING MED/SURG STATUS DCP: PATIENT IS FROM HOME
--- NOTE | 2018-05-06 19:37 | NUR ---
NURSE NOTES: Received report from ANJELICA Goodwin. Patient is aox2. No pain noted. No signs of distress, IV site intact and patent. IV fluids running. Bed low, call light within reach. Addendum: 05/06/18 at 2338 by ORI CRUZ RN right side hemiparesis, left side weakness noted.
--- NOTE | 2018-05-06 19:51 | Cardiology Progress Note ---
Assessment/Plan Assessment/Plan 1. Chest congestion. 2. Generalized weakness. 3. Shortness of breath. 4. History of hyponatremia. 5. History of hypertension. k supplement seem ok some variable bp reading no chf Subjective Cardiovascular: Denies: lightheadedness, palpitations Respiratory: Denies: shortness of breath Gastrointestinal/Abdominal: Denies: abdominal pain Genitourinary: Denies: burning Objective Last 24 Hour Vital Signs Date Time Temp Pulse Resp B/P (MAP) Pulse Ox O2 Delivery O2 Flow Rate FiO2 05/06/18 16:00 98.4 81 20 142/84 (103) 100 05/06/18 15:45 77 18 100 Room Air 21 05/06/18 15:37 74 17 99 Room Air 21 05/06/18 12:00 98.0 68 18 101/62 (75) 95 05/06/18 09:00 74 99/65 05/06/18 09:00 Room Air 05/06/18 08:08 74 18 100 Room Air 21 05/06/18 08:00 98.2 66 18 99/65 (76) 95 05/06/18 07:58 72 17 Room Air 21 05/06/18 07:58 72 17 99 Room Air 21 05/06/18 04:00 98.0 78 20 142/84 (103) 98 05/06/18 00:00 98.8 82 20 142/72 (95) 96 05/05/18 23:51 75 18 100 Room Air 21 05/05/18 23:40 75 18 98 Room Air 21 05/05/18 23:40 75 18 Room Air 21 05/05/18 21:55 75 17 Room Air 21 05/05/18 21:00 Room Air 05/05/18 20:01 99.7 78 18 134/69 (90) 95 05/05/18 20:00 99.7 78 18 134/69 (90) 91 General Appearance: no apparent distress Neck: supple Cardiovascular: normal rate, regular rhythm Respiratory/Chest: lungs clear Abdomen: normal bowel sounds, non tender, soft Extremities: no swelling Intake and Output 05/05/18 05/06/18 19:00 07:00 Intake Total 720 ml 1405 ml Output Total 702 ml Balance 18 ml 1405 ml Intake Oral 420 ml 880 ml IV Total 300 ml 525 ml Output Urine Total 700 ml Stool Total 2 ml # Voids 4 Laboratory Tests Test 3/29/19 04:55 White Blood Count 8.3 K/UL (4.8-10.8) Red Blood Count 3.72 M/UL (4.20-5.40) L Hemoglobin 11.8 G/DL (12.0-16.0) L Hematocrit 35.0 % (37.0-47.0) L Mean Corpuscular Volume 94 FL (80-99) Mean Corpuscular Hemoglobin 31.8 PG (27.0-31.0) H Mean Corpuscular Hemoglobin Concent 33.8 G/DL (32.0-36.0) Red Cell Distribution Width 12.5 % (11.6-14.8) Platelet Count 224 K/UL (150-450) Mean Platelet Volume 5.7 FL (6.5-10.1) L Neutrophils (%) (Auto) 69.8 % (45.0-75.0) Lymphocytes (%) (Auto) 16.9 % (20.0-45.0) L Monocytes (%) (Auto) 7.3 % (1.0-10.0) Eosinophils (%) (Auto) 5.2 % (0.0-3.0) H Basophils (%) (Auto) 0.9 % (0.0-2.0) Sodium Level 137 MMOL/L (136-145) Potassium Level 2.8 MMOL/L (3.5-5.1) L Chloride Level 101 MMOL/L (98-107) Carbon Dioxide Level 26 MMOL/L (21-32) Anion Gap 10 mmol/L (5-15) Blood Urea Nitrogen 10 mg/dL (7-18) Creatinine 0.5 MG/DL (0.55-1.30) L Estimat Glomerular Filtration Rate mL/min (>60) Glucose Level 100 MG/DL (74-106) Hemoglobin A1c 5.8 % (4.3-6.0) Uric Acid 2.3 MG/DL (2.6-7.2) L Calcium Level 8.6 MG/DL (8.5-10.1) Phosphorus Level 2.9 MG/DL (2.5-4.9) Magnesium Level 1.4 MG/DL (1.8-2.4) L Total Bilirubin 0.4 MG/DL (0.2-1.0) Gamma Glutamyl Transpeptidase 21 U/L (5-85) Aspartate Amino Transf (AST/SGOT) 20 U/L (15-37) Alanine Aminotransferase (ALT/SGPT) 15 U/L (12-78) Alkaline Phosphatase 98 U/L (46-116) Total Creatine Kinase 72 U/L (26-308) Troponin I 0.007 ng/mL (0.000-0.056) C-Reactive Protein, Quantitative 5.8 mg/dL (0.00-0.90) H Pro-B-Type Natriuretic Peptide 523 pg/mL (0-125) H Total Protein 6.8 G/DL (6.4-8.2) Albumin 3.0 G/DL (3.4-5.0) L Globulin 3.8 g/dL Albumin/Globulin Ratio 0.8 (1.0-2.7) L Triglycerides Level 88 MG/DL (30-150) Cholesterol Level 143 MG/DL (< 200) LDL Cholesterol 82 mg/dL (<100) HDL Cholesterol 45 MG/DL (40-60) Cholesterol/HDL Ratio 3.2 (3.3-4.4) L Vitamin B12 Level 388 PG/ML (193-986) Thyroid Stimulating Hormone (TSH) 2.516 uiU/mL (0.358-3.740) Microbiology Date/Time Source Procedure Growth Status 05/04/18 19:36 Blood Blood Culture - Preliminary Resulted 05/04/18 19:26 Blood Blood Culture - Preliminary Resulted 05/04/18 21:45 Nasal Nares Influenza Types A,B Antigen (JOHN) - Final Complete 05/05/18 16:30 Urine,Clean Catch Urine Culture - Preliminary Resulted Mario Durbin MD May 06, 2018 19:51
--- NOTE | 2018-05-06 19:56 | NUR ---
HAND-OFF: Report given to ANJELICA REHMAN.
[2018-05-06 20:00] VITALS: BP 158/85
[2018-05-07] VITALS: BP 137/80
[2018-05-07 04:00] VITALS: BP 168/98
[2018-05-07 07:34] LABS: % IRON SATURATION 17 % (15-50); IRON 34 ug/dL (50-175); TOTAL IRON BINDING CAPACITY 206 ug/dL (250-450)
[2018-05-07] MEDS: Albuterol ud Inhalation HHN SCH ×3 (07:45→22:11)
[2018-05-07 07:46] LABS: ALANINE AMINOTRANSFERASE 19 U/L (12-78); ALBUMIN 2.9 G/DL (3.4-5.0); ALBUMIN/GLOBULIN RATIO 0.8 (1.0-2.7); ALKALINE PHOSPHATASE 106 U/L (46-116); ANION GAP 9 mmol/L (5-15); ASPARTATE AMINO TRANSFERASE 17 U/L (15-37); BILIRUBIN,TOTAL 0.3 MG/DL (0.2-1.0); BLOOD UREA NITROGEN 9 mg/dL (7-18); CARBON DIOXIDE 26 MMOL/L (21-32); CHLORIDE 102 MMOL/L (98-107); CREATININE 0.6 MG/DL (0.55-1.30); FERRITIN 114 NG/ML (8-388); POTASSIUM 4.3 MMOL/L (3.5-5.1); SODIUM 137 MMOL/L (136-145)
[2018-05-07 08:00] VITALS: BP 156/95
--- NOTE | 2018-05-07 08:00 | NUR ---
NURSE NOTES: Received report from [place] DEJESUS. pt a/a/o x1 laying in bed with no signs of distress however pt is difficult to arouse, she is able to follow some commands. pt is a total feeder, RN assisted to eat breakfast, she was able to eat a few bites with no signs of n/v or aspiration issues. pt has an IV on the right hand gauge #20 running D5NS+20mEq@75ml/hr. call light within reach. bed in lowest position. side rales up x2. I will f/u as needed.
--- NOTE | 2018-05-07 08:07 | NUR ---
HAND-OFF: Report given to ANJELICA Gutierrez. Dr. Durbin notified regarding patient' 0400 BP of 168/98. IV fluids d/c'd. Norvasc 5 mg po one time ordered. Patient in stable condition.
--- NOTE | 2018-05-07 08:33 | Infectious Diseases Prog Note ---
Assessment/Plan Assessment/Plan Abx: IV Vancomcin 05/06- Ceftriaxone 05/05- Levaquin x1 05/04 azithromycin 05/05 x1 Assessment: Acute bronchitis -CXR: No acute cardiopulmonary disease -influenza sc neg Gram positive bacteremia- real vs contaminant -Bcx 03/14 GPC clusters Afebrile No leukocytosis -u/a neg; ucx p Dementia Parkinson's Osteoporosis w/ compression fractures nephrolithiasis neuropathy brain aneurysm sp coiling 06/2011 HTN shoulder dislocation spinal stenosis spinal surgery recurrent UTIs Plan: -Continue empiric IV Vancomycin #2 pending ID GPC clusters and repeat Bcx -Continue empiric Ceftriaxone #3 (abx d #05/13) for acute bronchitis -f.u cx -Monitor CBC/CMP, temperatures -aspiration precautions Will continue to follow along with you. Subjective Allergies: Coded Allergies: Dairy (Verified Allergy, Severe, 05/04/18) diarrhea Subjective Afebrile No Leukocytosis SAMMI Objective Vital Signs Last 24 Hour Vital Signs Date Time Temp Pulse Resp B/P (MAP) Pulse Ox O2 Delivery O2 Flow Rate FiO2 05/07/18 08:00 98.7 81 17 156/95 (115) 96 05/07/18 04:00 98.1 86 18 168/98 (121) 96 05/07/18 00:00 97.5 79 19 137/80 (99) 96 05/06/18 23:18 71 18 100 Room Air 21 05/06/18 23:09 71 17 98 Room Air 21 05/06/18 21:00 Room Air 05/06/18 20:00 98.4 81 20 158/85 (109) 96 05/06/18 19:00 77 18 Room Air 21 05/06/18 16:00 98.4 81 20 142/84 (103) 100 05/06/18 15:45 77 18 100 Room Air 21 05/06/18 15:37 74 17 99 Room Air 21 05/06/18 12:00 98.0 68 18 101/62 (75) 95 05/06/18 09:00 74 99/65 05/06/18 09:00 Room Air Height (Feet): 4 Height (Inches): 11.00 Weight (Pounds): 119 Objective GENERAL: NAD HEENT: NCAT, MMM, EOMI LUNGS: CTAB, No w CARDIAC: RRR, S1, S2. ABDOMEN: Soft, nontender. Positive bowel sounds. Microbiology Date/Time Source Procedure Growth Status 05/04/18 19:36 Blood Blood Culture - Preliminary Staphylococcus Sp Coag Neg Resulted 05/04/18 19:26 Blood Blood Culture - Preliminary Staphylococcus Sp Coag Neg Resulted 05/04/18 21:45 Nasal Nares Influenza Types A,B Antigen (JOHN) - Final Complete 05/05/18 16:30 Urine,Clean Catch Urine Culture - Preliminary Resulted Laboratory Tests Test 05/07/18 05:00 Sodium Level 137 MMOL/L (136-145) Potassium Level 4.3 MMOL/L (3.5-5.1) # Chloride Level 102 MMOL/L (98-107) Carbon Dioxide Level 26 MMOL/L (21-32) Anion Gap 9 mmol/L (5-15) Blood Urea Nitrogen 9 mg/dL (7-18) Creatinine 0.6 MG/DL (0.55-1.30) Estimat Glomerular Filtration Rate mL/min (>60) Glucose Level 109 MG/DL (74-106) H Calcium Level 9.0 MG/DL (8.5-10.1) Iron Level 34 ug/dL (50-175) L Total Iron Binding Capacity 206 ug/dL (250-450) L Percent Iron Saturation 17 % (15-50) Unsaturated Iron Binding 172 ug/dL (112-346) Ferritin 114 NG/ML (8-388) Total Bilirubin 0.3 MG/DL (0.2-1.0) Aspartate Amino Transf (AST/SGOT) 17 U/L (15-37) Alanine Aminotransferase (ALT/SGPT) 19 U/L (12-78) Alkaline Phosphatase 106 U/L (46-116) Total Protein 6.7 G/DL (6.4-8.2) Albumin 2.9 G/DL (3.4-5.0) L Globulin 3.8 g/dL Albumin/Globulin Ratio 0.8 (1.0-2.7) L Folate 12.6 NG/ML (8.6-58.9) Current Medications Medications (Trade) Dose Ordered Sig/Eliane Route PRN Reason Start Time Stop Time Status Last Admin Dose Admin Albuterol Sulfate (Proventil) 2.5 mg Q8HRT HHN 05/05/18 07:00 05/10/18 06:59 05/06/18 23:09 Amlodipine Besylate (Norvasc) 2.5 mg DAILY ORAL 05/07/18 09:00 06/06/18 08:59 UNV Amlodipine Besylate (Norvasc) 5 mg ONCE ORAL 05/07/18 09:00 05/07/18 10:00 Atenolol (Tenormin) 50 mg DAILY ORAL 05/06/18 09:00 06/04/18 08:59 Baclofen (Lioresal) 10 mg TIDPRN PRN ORAL muscle spasm 05/05/18 13:15 06/04/18 13:14 Carbidopa/Levodopa (Sinemet 10/100) 1 tab FIVE TIMES A DAY ORAL 05/05/18 07:00 06/04/18 06:59 05/06/18 18:07 Ceftriaxone Sodium 1 gm/ Dextrose 55 ml @ 110 mls/hr Q24H IVPB 05/06/18 13:00 05/13/18 12:59 05/06/18 13:33 Clonazepam (KlonoPIN) 0.5 mg HSPRN PRN ORAL insomnia 05/05/18 13:15 05/12/18 13:14 Dextromethorphan/ Quinidine (Nuedexta Capsule) 1 cap Q12HR ORAL 05/05/18 21:00 06/04/18 20:59 05/06/18 22:51 Gabapentin (Neurontin) 100 mg BID ORAL 05/05/18 18:00 06/04/18 08:59 05/06/18 18:07 Heparin Sodium (Porcine) (Heparin 5000 units/ml) 5,000 units EVERY 12 HOURS SUBQ 05/05/18 09:00 06/04/18 08:59 05/06/18 22:52 Vancomycin HCl (Vanco rx to dose) 1 ea DAILY PRN MISC Per rx protocol 05/06/18 11:30 06/05/18 11:29 Vancomycin HCl 750 mg/Sodium Chloride 275 ml @ 183.333 mls/hr Q24H IVPB 05/07/18 13:00 05/12/18 12:59 Jeffrey Blake MD May 07, 2018 08:33
[2018-05-07] MEDS: Levodopa/Carbidopa 10/100 tab ORAL SCH ×5 (09:07→21:57)
[2018-05-07] MEDS: Nuedexta Capsule 20/10mg ORAL SCH ×2 (09:07→21:57)
[2018-05-07] MEDS: Heparin 5000 units/ml inj SUBQ SCH ×2 (09:08→21:58)
[2018-05-07 12:00] VITALS: BP 111/76
--- NOTE | 2018-05-07 12:00 | Consultation ---
History of Present Illness General Date patient seen: May 07, 2018 Time patient seen: 11:59 Present Illness Allergies: Coded Allergies: Dairy (Verified Allergy, Severe, 05/04/18) diarrhea Medication History Scheduled Atenolol* (Tenormin*), 50 MG PO DAILY, (Reported) Baclofen* (Baclofen*), 10 MG ORAL THREE TIMES A DAY, (Reported) Carbidopa/Levodopa* (Sinemet 10-100 Mg Tablet*), 1 TAB ORAL FIVE TIMES A DAY, ( Reported) Clonazepam* (Klonopin*), 0.5 MG ORAL DAILY, (Reported) Dextromethorphan Hbr/Quinidine (Nuedexta 20-10 Mg Capsule), 1 EACH PO BID, ( Reported) Gabapentin* (Gabapentin*), 100 MG ORAL QID, (Reported) Omeprazole (Omeprazole), 40 MG PO DAILY, (Reported) Scheduled PRN Propylene Glycol (Systane Complete), 10 ML OP for Dry Eyes, (Reported) Discontinued Medications Gabapentin* (Gabapentin*), 500 MG PO DAILY, (Reported) Discontinued Reason: Prescription changed Patient History Healthcare decision maker Resuscitation status Full Code Advanced Directive on File No Review of Systems ROS Narrative sleepy Physical Exam General Appearance: WD/WN HEENT: normocephalic Neck: non-tender Respiratory/Chest: lungs clear, other - occasaionkl end ezxp wheezing Cardiovascular/Chest: normal rate, no JVD Abdomen: soft Last 24 Hour Vital Signs Date Time Temp Pulse Resp B/P (MAP) Pulse Ox O2 Delivery O2 Flow Rate FiO2 05/07/18 09:11 81 156/95 05/07/18 09:07 81 156/95 05/07/18 08:00 98.7 81 17 156/95 (115) 96 05/07/18 07:55 78 18 100 Room Air 21 05/07/18 07:45 76 18 Room Air 21 05/07/18 07:45 76 18 96 Room Air 21 05/07/18 04:00 98.1 86 18 168/98 (121) 96 05/07/18 00:00 97.5 79 19 137/80 (99) 96 05/06/18 23:18 71 18 100 Room Air 21 05/06/18 23:09 71 17 98 Room Air 21 05/06/18 21:00 Room Air 05/06/18 20:00 98.4 81 20 158/85 (109) 96 05/06/18 19:00 77 18 Room Air 21 05/06/18 16:00 98.4 81 20 142/84 (103) 100 05/06/18 15:45 77 18 100 Room Air 21 05/06/18 15:37 74 17 99 Room Air 21 05/06/18 12:00 98.0 68 18 101/62 (75) 95 Intake and Output 05/06/18 05/07/18 19:00 07:00 Intake Total 2517.416 ml 825 ml Output Total 300 ml 800 ml Balance 2217.416 ml 25 ml Intake Oral 720 ml IV Total 1797.416 ml 825 ml Output Urine Total 300 ml 800 ml Laboratory Tests Test 05/07/18 05:00 Sodium Level 137 MMOL/L (136-145) Potassium Level 4.3 MMOL/L (3.5-5.1) # Chloride Level 102 MMOL/L (98-107) Carbon Dioxide Level 26 MMOL/L (21-32) Anion Gap 9 mmol/L (5-15) Blood Urea Nitrogen 9 mg/dL (7-18) Creatinine 0.6 MG/DL (0.55-1.30) Estimat Glomerular Filtration Rate mL/min (>60) Glucose Level 109 MG/DL (74-106) H Calcium Level 9.0 MG/DL (8.5-10.1) Iron Level 34 ug/dL (50-175) L Total Iron Binding Capacity 206 ug/dL (250-450) L Percent Iron Saturation 17 % (15-50) Unsaturated Iron Binding 172 ug/dL (112-346) Ferritin 114 NG/ML (8-388) Total Bilirubin 0.3 MG/DL (0.2-1.0) Aspartate Amino Transf (AST/SGOT) 17 U/L (15-37) Alanine Aminotransferase (ALT/SGPT) 19 U/L (12-78) Alkaline Phosphatase 106 U/L (46-116) Total Protein 6.7 G/DL (6.4-8.2) Albumin 2.9 G/DL (3.4-5.0) L Globulin 3.8 g/dL Albumin/Globulin Ratio 0.8 (1.0-2.7) L Folate 12.6 NG/ML (8.6-58.9) Height (Feet): 4 Height (Inches): 11.00 Weight (Pounds): 119 Medications Current Medications Medications (Trade) Dose Ordered Sig/Eliane Route PRN Reason Start Time Stop Time Status Last Admin Dose Admin Albuterol Sulfate (Proventil) 2.5 mg Q8HRT HHN 05/05/18 07:00 05/10/18 06:59 05/07/18 07:45 Amlodipine Besylate (Norvasc) 2.5 mg DAILY ORAL 05/07/18 09:00 06/06/18 08:59 Atenolol (Tenormin) 50 mg DAILY ORAL 05/06/18 09:00 06/04/18 08:59 05/07/18 09:07 Baclofen (Lioresal) 10 mg TIDPRN PRN ORAL muscle spasm 05/05/18 13:15 06/04/18 13:14 Carbidopa/Levodopa (Sinemet 10/100) 1 tab FIVE TIMES A DAY ORAL 05/05/18 07:00 06/04/18 06:59 05/07/18 10:32 Ceftriaxone Sodium 1 gm/ Dextrose 55 ml @ 110 mls/hr Q24H IVPB 05/06/18 13:00 05/13/18 12:59 05/06/18 13:33 Clonazepam (KlonoPIN) 0.5 mg HSPRN PRN ORAL insomnia 05/05/18 13:15 05/12/18 13:14 Dextromethorphan/ Quinidine (Nuedexta Capsule) 1 cap Q12HR ORAL 05/05/18 21:00 06/04/18 20:59 05/07/18 09:07 Gabapentin (Neurontin) 100 mg BID ORAL 05/05/18 18:00 06/04/18 08:59 05/07/18 09:07 Heparin Sodium (Porcine) (Heparin 5000 units/ml) 5,000 units EVERY 12 HOURS SUBQ 05/05/18 09:00 06/04/18 08:59 05/07/18 09:08 Vancomycin HCl (Vanco rx to dose) 1 ea DAILY PRN MISC Per rx protocol 05/06/18 11:30 06/05/18 11:29 Vancomycin HCl 750 mg/Sodium Chloride 275 ml @ 183.333 mls/hr Q24H IVPB 05/07/18 13:00 05/12/18 12:59 Assessment/Plan Status Narrative brochitis reactive air way postive bactermeia parkinson antibiot c per id will follow Jeffrey Noe MD May 07, 2018 12:00
--- NOTE | 2018-05-07 13:01 | Nephrology Progress Note ---
Assessment/Plan Problem List: (1) UTI (urinary tract infection) (2) Encephalopathy due to infection (3) HTN (hypertension) (4) Parkinson disease Assessment UTI-- Encephalopathy Dementia HTN Parkinsons bronchitis Plan down on mind altering meds urine c/s rocephin BP med adjustment iv hydration check TSh B12 .... Subjective ROS Limited/Unobtainable: No Objective Objective Last 24 Hour Vital Signs Date Time Temp Pulse Resp B/P (MAP) Pulse Ox O2 Delivery O2 Flow Rate FiO2 05/07/18 12:00 98.3 84 17 111/76 (88) 97 05/07/18 09:11 81 156/95 05/07/18 09:07 81 156/95 05/07/18 09:00 84 111/76 05/07/18 09:00 Room Air 05/07/18 08:00 98.7 81 17 156/95 (115) 96 05/07/18 07:55 78 18 100 Room Air 21 05/07/18 07:45 76 18 Room Air 21 05/07/18 07:45 76 18 96 Room Air 21 05/07/18 04:00 98.1 86 18 168/98 (121) 96 05/07/18 00:00 97.5 79 19 137/80 (99) 96 05/06/18 23:18 71 18 100 Room Air 21 05/06/18 23:09 71 17 98 Room Air 21 05/06/18 21:00 Room Air 05/06/18 20:00 98.4 81 20 158/85 (109) 96 05/06/18 19:00 77 18 Room Air 21 05/06/18 16:00 98.4 81 20 142/84 (103) 100 05/06/18 15:45 77 18 100 Room Air 21 05/06/18 15:37 74 17 99 Room Air 21 Intake and Output 05/06/18 05/07/18 19:00 07:00 Intake Total 2517.416 ml 825 ml Output Total 300 ml 800 ml Balance 2217.416 ml 25 ml Intake Oral 720 ml IV Total 1797.416 ml 825 ml Output Urine Total 300 ml 800 ml Laboratory Tests 05/07/18 05:00: Sodium Level 137, Potassium Level 4.3#, Chloride Level 102, Carbon Dioxide Level 26, Anion Gap 9, Blood Urea Nitrogen 9, Creatinine 0.6, Estimat Glomerular Filtration Rate , Glucose Level 109H, Calcium Level 9.0, Iron Level 34L, Total Iron Binding Capacity 206L, Percent Iron Saturation 17, Unsaturated Iron Binding 172, Ferritin 114, Total Bilirubin 0.3, Aspartate Amino Transf (AST /SGOT) 17, Alanine Aminotransferase (ALT/SGPT) 19, Alkaline Phosphatase 106, Total Protein 6.7, Albumin 2.9L, Globulin 3.8, Albumin/Globulin Ratio 0.8L, Folate 12.6 Height (Feet): 4 Height (Inches): 11.00 Weight (Pounds): 119 General Appearance: no apparent distress Cardiovascular: normal rate Respiratory/Chest: decreased breath sounds Abdomen: soft Objective no change Yoan Gordon MD May 07, 2018 13:01
[2018-05-07] MEDS: Vancomycin 750mg/NS 275ml IVPB SCH ×2 (13:04)
[2018-05-07] MEDS: cefTRIAXone 1 GM in D5W 55 ML IVPB SCH (13:06)
[2018-05-07 16:00] VITALS: BP 101/56
[2018-05-07] MEDS ORDERED: D5W 275ml ONE (18:43)
[2018-05-07] MEDS ORDERED: Tubing IV Secondary IV ONE (18:43)
--- NOTE | 2018-05-07 19:21 | NUR ---
HAND-OFF: Report given to [place] DEJESUS, pt in stable condition.
--- NOTE | 2018-05-07 19:49 | Cardiology Progress Note ---
Assessment/Plan Assessment/Plan no changes of her medications Subjective Subjective The patient is resting in bed, she feels fine Objective Last 24 Hour Vital Signs Date Time Temp Pulse Resp B/P (MAP) Pulse Ox O2 Delivery O2 Flow Rate FiO2 05/07/18 16:00 98.4 81 17 101/56 (71) 98 05/07/18 14:52 80 18 100 Room Air 21 05/07/18 14:41 77 18 97 Room Air 21 05/07/18 12:00 98.3 84 17 111/76 (88) 97 05/07/18 09:11 81 156/95 05/07/18 09:07 81 156/95 05/07/18 09:00 84 111/76 05/07/18 09:00 Room Air 05/07/18 08:00 98.7 81 17 156/95 (115) 96 05/07/18 07:55 78 18 100 Room Air 21 05/07/18 07:45 76 18 Room Air 21 05/07/18 07:45 76 18 96 Room Air 21 05/07/18 04:00 98.1 86 18 168/98 (121) 96 05/07/18 00:00 97.5 79 19 137/80 (99) 96 05/06/18 23:18 71 18 100 Room Air 21 05/06/18 23:09 71 17 98 Room Air 21 05/06/18 21:00 Room Air 05/06/18 20:00 98.4 81 20 158/85 (109) 96 General Appearance: no apparent distress EENT: PERRL/EOMI Neck: supple, no JVD Rhythm: NSR Cardiovascular: regular rhythm Respiratory/Chest: crackles/rales - at left base Abdomen: soft Extremities: trace edema Intake and Output 05/06/18 05/07/18 18:59 06:59 Intake Total 2367.416 ml 975 ml Output Total 300 ml 800 ml Balance 2067.416 ml 175 ml Intake Oral 720 ml IV Total 1647.416 ml 975 ml Output Urine Total 300 ml 800 ml Laboratory Tests Test 05/07/18 05:00 Sodium Level 137 MMOL/L (136-145) Potassium Level 4.3 MMOL/L (3.5-5.1) # Chloride Level 102 MMOL/L (98-107) Carbon Dioxide Level 26 MMOL/L (21-32) Anion Gap 9 mmol/L (5-15) Blood Urea Nitrogen 9 mg/dL (7-18) Creatinine 0.6 MG/DL (0.55-1.30) Estimat Glomerular Filtration Rate mL/min (>60) Glucose Level 109 MG/DL (74-106) H Calcium Level 9.0 MG/DL (8.5-10.1) Iron Level 34 ug/dL (50-175) L Total Iron Binding Capacity 206 ug/dL (250-450) L Percent Iron Saturation 17 % (15-50) Unsaturated Iron Binding 172 ug/dL (112-346) Ferritin 114 NG/ML (8-388) Total Bilirubin 0.3 MG/DL (0.2-1.0) Aspartate Amino Transf (AST/SGOT) 17 U/L (15-37) Alanine Aminotransferase (ALT/SGPT) 19 U/L (12-78) Alkaline Phosphatase 106 U/L (46-116) Total Protein 6.7 G/DL (6.4-8.2) Albumin 2.9 G/DL (3.4-5.0) L Globulin 3.8 g/dL Albumin/Globulin Ratio 0.8 (1.0-2.7) L Folate 12.6 NG/ML (8.6-58.9) Microbiology Date/Time Source Procedure Growth Status 05/04/18 21:45 Nasal Nares Influenza Types A,B Antigen (JOHN) - Final Complete 05/05/18 16:30 Urine,Clean Catch Urine Culture - Final Mixed Urogenital Contaminants Complete Missy Conn MD May 07, 2018 19:49
[2018-05-07 20:00] VITALS: BP 155/87
--- NOTE | 2018-05-07 22:37 | NUR ---
NURSE NOTES: Patient is in bed, asleep. VSS, no shortness of breath. No pain noted. IV site intact and patent. Due meds given, needs attended to, bed low call light within reach, will continue to monitor.
[2018-05-08] VITALS: BP 115/65
[2018-05-08 04:00] VITALS: BP 126/63
--- NOTE | 2018-05-08 05:10 | NUR ---
NURSE NOTES: small blister cluster noted left lateral buttock. Skin intact. Wound care protocol implemented.
[2018-05-08 08:00] VITALS: BP 145/87
--- NOTE | 2018-05-08 08:00 | NUR ---
NURSE NOTES: Received report from [place] DEJESUS, pt a/a/o x1 laying in bed with no signs of distress but pt keep her eyes closed most of the times, pt is able to follow commands but slow pace. per report pt has a small wound in the lower back, [place] DEJESUS started wound protocol. call light within reach, bed in lowest position, side rales up x2. I will f/u as needed.
--- NOTE | 2018-05-08 08:12 | NUR ---
HAND-OFF: Report given to ANJELICA Gutierrez. Patient stable.
[2018-05-08] MEDS: Levodopa/Carbidopa 10/100 tab ORAL SCH ×5 (08:36→22:12)
[2018-05-08] MEDS: Nuedexta Capsule 20/10mg ORAL SCH ×2 (08:36→22:12)
[2018-05-08] MEDS: Heparin 5000 units/ml inj SUBQ SCH ×2 (08:38→22:14)
[2018-05-08] MEDS: Albuterol ud Inhalation HHN SCH ×3 (08:46→23:07)
--- NOTE | 2018-05-08 11:42 | Cardiology Report ---
APPROVED REPORT EXAM: Two-dimensional and M-mode echocardiogram with Doppler and color Doppler. INDICATION Shortness of breath M-Mode DIMENSIONS IVSd1.1 (0.7-1.1cm)Left Atrium (MM)3.9 (1.6-4.0cm) LVDd3.1 (3.5-5.6cm)Aortic Root3.4 (2.0-3.7cm) PWd1.1 (0.7-1.1cm)Aortic Cusp Exc.1.9 (1.5-2.0cm) LVDs1.7 (2.5-4.0cm) PWs1.4 cm Other Information Technically limited study due to poor acoustic windows. Normal left ventricular chamber size, systolic function and wall motion. Left ventricular ejection fraction estimated to be 60-65 %. Mild left ventricular hypertrophy. Anterior Echo-free space, may be due to pericardial fat or effusion. Left atrial size at upper limits of normal. Right cardiac chamber sizes are within normal limits. Focal aortic valve sclerosis with adequate cusp excursion. Thickened mitral valve leaflets with normal excursion. Mitral annulus and aortic root calcification. Pulmonic valve not well visualized. Normal tricuspid valve structure. IVC dilated at 2.0 cm with slight physiologic collapse A color flow and spectral Doppler study was performed and revealed: Trace aortic regurgitation. Trace mitral regurgitation. Mitral diastolic velocities suggest reduced left ventricular relaxation c/w mild LV diastolic dysfunction (Grade I). Trace tricuspid regurgitation. Tricuspid systolic velocities suggests peak right ventricular systolic pressure of 20 mmHg.
[2018-05-08 12:00] VITALS: BP 101/62
[2018-05-08] MEDS: cefTRIAXone 1 GM in D5W 55 ML IVPB SCH (13:30)
[2018-05-08] MEDS: Vancomycin 750mg/NS 275ml IVPB SCH ×2 (13:31)
--- NOTE | 2018-05-08 13:34 | Nephrology Progress Note ---
Assessment/Plan Problem List: (1) UTI (urinary tract infection) (2) Encephalopathy due to infection (3) HTN (hypertension) (4) Parkinson disease Assessment UTI-- Encephalopathy Dementia HTN Parkinsons bronchitis Plan down on mind altering meds urine c/s rocephin BP med adjustment iv hydration check TSh B12 .... Subjective ROS Limited/Unobtainable: No Constitutional: Reports: malaise Objective Objective Last 24 Hour Vital Signs Date Time Temp Pulse Resp B/P (MAP) Pulse Ox O2 Delivery O2 Flow Rate FiO2 05/08/18 08:55 75 16 99 Room Air 21 05/08/18 08:46 75 14 98 Room Air 21 05/08/18 08:36 77 143/87 05/08/18 08:36 77 143/87 05/08/18 08:00 97.2 77 19 145/87 (106) 95 05/08/18 04:00 97.3 75 18 126/63 (84) 95 05/08/18 00:00 97.5 84 18 115/65 (82) 98 05/07/18 22:18 82 18 100 Room Air 21 05/07/18 22:11 83 18 98 Room Air 21 05/07/18 21:00 Room Air 05/07/18 20:00 98.3 88 17 155/87 (109) 96 05/07/18 16:00 98.4 81 17 101/56 (71) 98 05/07/18 14:52 80 18 100 Room Air 21 05/07/18 14:41 77 18 97 Room Air 21 Intake and Output 05/07/18 05/08/18 19:00 07:00 Intake Total 200 ml Output Total 950 ml Balance 200 ml -950 ml Intake Oral 200 ml Output Urine Total 950 ml Height (Feet): 4 Height (Inches): 11.00 Weight (Pounds): 119 General Appearance: no apparent distress Objective no change Yoan Gordon MD May 08, 2018 13:34
--- NOTE | 2018-05-08 15:50 | NUR ---
RESPIRATORY- SCANNER NOT WORKING. HAD TO MANUALLY ADMINISTER MEDICATION.
[2018-05-08 16:00] VITALS: BP 109/56
--- NOTE | 2018-05-08 19:27 | NUR ---
CASE MANAGEMENT: REVIEW 05/08/2018 SI:UTI. ENCEPHALOPATHY. T 97 HR 88 RR 19 B/P 101/62 SATS 95% ON RA NO LABS TODAY IS: GABAPENTIN PO BID TENORMIN PO QD NORVASC PO QD NUEDEXTA PO Q12H CEFTRIAXONE IV Q24H VANCO IV Q24H SINEMET PO QID MED/SURG STATUS PLAN OF CARE: ST EVAL IV ANTIBx
--- NOTE | 2018-05-08 19:37 | NUR ---
NURSE NOTES: Received report from Devin Gutierrez. Patient in bed, awake, crying, says "I want to see my daughter". Daughter and son arrived, in room. Will continue to monitor.
--- NOTE | 2018-05-08 19:38 | NUR ---
HAND-OFF: Report given to [place] DEJESUS, pt in stable condition.
[2018-05-08 20:00] VITALS: BP 112/74
--- NOTE | 2018-05-08 21:19 | Consultation ---
History of Present Illness General Date patient seen: May 08, 2018 Time patient seen: 21:17 Present Illness Allergies: Coded Allergies: Dairy (Verified Allergy, Severe, 05/04/18) diarrhea Medication History Scheduled Atenolol* (Tenormin*), 50 MG PO DAILY, (Reported) Baclofen* (Baclofen*), 10 MG ORAL THREE TIMES A DAY, (Reported) Carbidopa/Levodopa* (Sinemet 10-100 Mg Tablet*), 1 TAB ORAL FIVE TIMES A DAY, ( Reported) Clonazepam* (Klonopin*), 0.5 MG ORAL DAILY, (Reported) Dextromethorphan Hbr/Quinidine (Nuedexta 20-10 Mg Capsule), 1 EACH PO BID, ( Reported) Gabapentin* (Gabapentin*), 100 MG ORAL QID, (Reported) Omeprazole (Omeprazole), 40 MG PO DAILY, (Reported) Scheduled PRN Propylene Glycol (Systane Complete), 10 ML OP for Dry Eyes, (Reported) Discontinued Medications Gabapentin* (Gabapentin*), 500 MG PO DAILY, (Reported) Discontinued Reason: Prescription changed Patient History Healthcare decision maker Resuscitation status Full Code Advanced Directive on File No Review of Systems ROS Narrative sleepy talks with her eye sclosed this happened to her couple years ago when she had uti Physical Exam Last 24 Hour Vital Signs Date Time Temp Pulse Resp B/P (MAP) Pulse Ox O2 Delivery O2 Flow Rate FiO2 05/08/18 16:00 97.1 71 19 109/56 (73) 97 05/08/18 15:52 71 16 100 Room Air 21 05/08/18 15:42 68 12 96 Room Air 21 05/08/18 12:00 97.0 88 19 101/62 (75) 95 05/08/18 09:00 Room Air 05/08/18 08:55 75 16 99 Room Air 21 05/08/18 08:46 75 14 98 Room Air 21 05/08/18 08:36 77 143/87 05/08/18 08:36 77 143/87 05/08/18 08:00 97.2 77 19 145/87 (106) 95 05/08/18 04:00 97.3 75 18 126/63 (84) 95 05/08/18 00:00 97.5 84 18 115/65 (82) 98 05/07/18 22:18 82 18 100 Room Air 21 05/07/18 22:11 83 18 98 Room Air 21 Intake and Output 05/07/18 05/08/18 18:59 06:59 Intake Total 200 ml Output Total 950 ml Balance 200 ml -950 ml Intake Oral 200 ml Output Urine Total 950 ml Height (Feet): 4 Height (Inches): 11.00 Weight (Pounds): 119 Medications Current Medications Medications (Trade) Dose Ordered Sig/Eliane Route PRN Reason Start Time Stop Time Status Last Admin Dose Admin Albuterol Sulfate (Proventil) 2.5 mg Q8HRT HHN 05/05/18 07:00 05/10/18 06:59 05/08/18 15:00 Amlodipine Besylate (Norvasc) 2.5 mg DAILY ORAL 05/07/18 09:00 06/06/18 08:59 05/08/18 08:36 Atenolol (Tenormin) 50 mg DAILY ORAL 05/06/18 09:00 06/04/18 08:59 05/08/18 08:36 Baclofen (Lioresal) 10 mg TIDPRN PRN ORAL muscle spasm 05/05/18 13:15 06/04/18 13:14 05/08/18 10:31 Carbidopa/Levodopa (Sinemet 10/100) 1 tab FIVE TIMES A DAY ORAL 05/05/18 07:00 06/04/18 06:59 05/08/18 16:49 Ceftriaxone Sodium 1 gm/ Dextrose 55 ml @ 110 mls/hr Q24H IVPB 05/06/18 13:00 05/13/18 12:59 05/08/18 13:30 Clonazepam (KlonoPIN) 0.5 mg HSPRN PRN ORAL insomnia 05/05/18 13:15 05/12/18 13:14 Dextromethorphan/ Quinidine (Nuedexta Capsule) 1 cap Q12HR ORAL 05/05/18 21:00 06/04/18 20:59 05/08/18 08:36 Gabapentin (Neurontin) 100 mg BID ORAL 05/05/18 18:00 06/04/18 08:59 05/08/18 16:49 Heparin Sodium (Porcine) (Heparin 5000 units/ml) 5,000 units EVERY 12 HOURS SUBQ 05/05/18 09:00 06/04/18 08:59 05/08/18 08:38 Vancomycin HCl (Vanco rx to dose) 1 ea DAILY PRN MISC Per rx protocol 05/06/18 11:30 06/05/18 11:29 Vancomycin HCl 750 mg/Sodium Chloride 275 ml @ 183.333 mls/hr Q24H IVPB 05/07/18 13:00 05/12/18 12:59 05/08/18 13:31 Objective Narrative sleepy but responds moves all 4 extremity no jvd cta s1,s2,rrr soft Assessment/Plan Status Narrative bronchitis bactremia parkinson encephalopthy toxic metabolic protein malnuriotion Assessment/Plan antibiotic per id neuro eval. turn q 2 hour to prevent decubiti. pt eval. Jeffrey Noe MD May 08, 2018 21:19
--- NOTE | 2018-05-08 23:06 | NUR ---
NURSE NOTES: PT eval ordered by Dr. Noe. Daughter stated that patient is able to ambulate at home with 2 assist and walker, but has been weak since hospital admission.
[2018-05-09] VITALS: BP 138/70
[2018-05-09 04:00] VITALS: BP 122/56
[2018-05-09] MEDS: Levodopa/Carbidopa 10/100 tab ORAL SCH ×5 (07:00→18:13)
--- NOTE | 2018-05-09 07:57 | NUR ---
HAND-OFF: Report given to ANJELICA Randolph. Patient stable.
[2018-05-09 08:00] VITALS: BP 147/79
[2018-05-09] MEDS: Albuterol ud Inhalation HHN SCH ×2 (08:01→16:04)
--- NOTE | 2018-05-09 08:21 | NUR ---
NURSE NOTES: Received report from [place] DEJESUS. Patient is awake and alert, oriented x2. On right side in semi fowlers position. Called central to send pressure relief mattress. No acute distress noted, receiving breathing treatment per order. Fall precautions maintained, side rails upx3, bed low and locked, call light in reach. Will continue to monitor.
--- NOTE | 2018-05-09 09:18 | NUR ---
CASE MANAGEMENT:REVIEW 05/09/18 SI: BACTEREMIA. ENCEPHALOPATHY. BRONCHITIS H/O PARKINSON'S 97.4 82 20 147/79 96% ON RA IS: IV VANCOMYCIN Q24 IV ROCEPHIN Q24 NORVASC PO QD HEPARIN SQ Q12 DUONEB HHN Q8HRS RTC : MED/SURG STATUS 3 [facility] DCP: PATIENT IS FROM HOME PLAN: NEURO EVAL PT EVAL
[2018-05-09] MEDS: Nuedexta Capsule 20/10mg ORAL SCH ×2 (09:24→22:00)
[2018-05-09] MEDS: Heparin 5000 units/ml inj SUBQ SCH ×2 (09:26→22:01)
[2018-05-09 12:00] VITALS: BP 123/82
--- NOTE | 2018-05-09 12:09 | Nephrology Progress Note ---
Assessment/Plan Problem List: (1) UTI (urinary tract infection) (2) Encephalopathy due to infection (3) HTN (hypertension) (4) Parkinson disease Assessment UTI-- Encephalopathy Dementia HTN Parkinsons bronchitis Plan no labs down on mind altering meds urine c/s rocephin BP med adjustment iv hydration check TSh B12 .... Subjective ROS Limited/Unobtainable: No Objective Objective Last 24 Hour Vital Signs Date Time Temp Pulse Resp B/P (MAP) Pulse Ox O2 Delivery O2 Flow Rate FiO2 05/09/18 09:25 82 147/79 05/09/18 09:24 82 147/79 05/09/18 09:00 Room Air 05/09/18 08:07 73 16 100 Room Air 21 05/09/18 08:01 71 12 96 Room Air 21 05/09/18 08:00 97.4 82 20 147/79 (101) 94 05/09/18 04:00 97.4 71 18 122/56 (78) 96 05/09/18 00:00 98.1 67 18 138/70 (92) 96 05/08/18 23:21 77 16 100 Room Air 21 05/08/18 23:08 69 16 98 Room Air 21 05/08/18 21:00 Room Air 05/08/18 20:00 98.9 80 18 112/74 (87) 95 05/08/18 16:00 97.1 71 19 109/56 (73) 97 05/08/18 15:52 71 16 100 Room Air 21 05/08/18 15:42 68 12 96 Room Air 21 Intake and Output 05/08/18 05/09/18 19:00 07:00 Intake Total 720 ml Output Total 200 ml Balance 720 ml -200 ml Intake Oral 720 ml Output Urine Total 200 ml # Voids 4 Laboratory Tests 05/09/18 10:30: Ammonia 21 Height (Feet): 4 Height (Inches): 11.00 Weight (Pounds): 119 General Appearance: no apparent distress Objective no change Yoan Gordon MD May 09, 2018 12:09
--- NOTE | 2018-05-09 12:53 | Cardiology Report ---
APPROVED REPORT EKG Measurement Heart [id number] Normal sinus rhythm Normal ECG
[2018-05-09] MEDS: cefTRIAXone 1 GM in D5W 55 ML IVPB SCH (13:49)
[2018-05-09] MEDS ORDERED: Vancomycin 750mg/NS 275ml IVPB SCH ×2 (14:00)
--- NOTE | 2018-05-09 15:11 | NUR ---
P.T NOTE: P.T EVALUATION COMPLETED AND TREATMENT INITIATED . PLEASE REFER TO P.T EVALUATION FOR CURRENT FUNCTIONAL STATUS. PATIENT IS LIMITED BY GENERALIZED WEAKNESS AND DECONDITIONED STATE. PATIENT REQUIRED MAX A X 1 TO TURN/ROLL TO BOTH SIDES OF BED AND TO COMPLETE SUPINE TO/FROM SIT. PATIENT ABLE TO SIT AT THE EOB HOWEVER UNABLE TO STAND AND TRANSFER. PATIENT MAY FROM SKILLED P.T SERVICE TO IMPROVE STRENGTH , BALANCE AND ENDURANCE TO INCREASE MOBILITY INDEPENDENCE AND SAFETY. RECOMMEND DC TO SNF WITH CONTINUED REHAB. THANK YOU FOR THIS REFERRAL.
--- NOTE | 2018-05-09 15:16 | NUR ---
RD ASSESSMENT & RECOMMENDATIONS SEE CARE ACTIVITY FOR COMPLETE ASSESSMENT DAILY ESTIMATED NEEDS: Needs based on General/ 54kg 25-30 kcals/kg [id number] total kcals 0.8-1.0 g protein/kg 43-54 g total protein 25-30 mL/kg 0024-8140 total fluid mLs NUTRITION DIAGNOSIS: Swallowing difficulty R/T dysphagia, h/o Parkinson's disease as evidenced by [employer] PREPAR[employer] recommends mech soft chopped texture diet. CURRENT DIET:Cardiac, mech soft chopped PO DIET RECOMMENDATIONS: LOW NA/ texture per [employer] ADDITIONAL RECOMMENDATIONS: * Calibrated bedscale wt for accurate CBW * Monitor lytes, replete as needed (low ma)
[2018-05-09 16:00] VITALS: BP 132/68
--- NOTE | 2018-05-09 16:04 | Infectious Diseases Prog Note ---
Assessment/Plan Assessment/Plan Abx: IV Vancomcin 05/06- Ceftriaxone 05/05- Levaquin x1 05/04 azithromycin 05/05 x1 Assessment: Acute bronchitis -CXR: No acute cardiopulmonary disease -influenza sc neg Gram positive bacteremia- contaminant -Bcx 03/14 CONS; repeat bcx zNTD Afebrile No leukocytosis -u/a neg; ucx mixed gram positive growth Dementia Parkinson's Osteoporosis w/ compression fractures nephrolithiasis neuropathy brain aneurysm sp coiling 06/2011 HTN shoulder dislocation spinal stenosis spinal surgery recurrent UTIs Plan: -d/c empiric IV Vancomycin #4 -D/c empiric Ceftriaxone #5 (abx d #6/) for acute bronchitis and monitor off abx -f.u cx -Monitor CBC/CMP, temperatures -aspiration precautions Will continue to follow along with you. Subjective Allergies: Coded Allergies: Dairy (Verified Allergy, Severe, 05/04/18) diarrhea Subjective afebrile no leukocyrtosis repeat bcx NTD Objective Vital Signs Last 24 Hour Vital Signs Date Time Temp Pulse Resp B/P (MAP) Pulse Ox O2 Delivery O2 Flow Rate FiO2 05/09/18 12:00 97.7 63 19 123/82 (96) 96 05/09/18 09:25 82 147/79 05/09/18 09:24 82 147/79 05/09/18 09:00 Room Air 05/09/18 08:07 73 16 100 Room Air 21 05/09/18 08:01 71 12 96 Room Air 21 05/09/18 08:00 97.4 82 20 147/79 (101) 94 05/09/18 04:00 97.4 71 18 122/56 (78) 96 05/09/18 00:00 98.1 67 18 138/70 (92) 96 05/08/18 23:21 77 16 100 Room Air 21 05/08/18 23:08 69 16 98 Room Air 21 05/08/18 21:00 Room Air 05/08/18 20:00 98.9 80 18 112/74 (87) 95 Height (Feet): 4 Height (Inches): 11.00 Weight (Pounds): 119 Laboratory Tests Test 05/09/18 10:30 05/09/18 12:10 Ammonia 21 umol/L (11-32) Vancomycin Level Trough 5.0 ug/mL (5.0-12.0) Current Medications Medications (Trade) Dose Ordered Sig/Eliane Route PRN Reason Start Time Stop Time Status Last Admin Dose Admin Albuterol Sulfate (Proventil) 2.5 mg Q8HRT HHN 05/05/18 07:00 05/10/18 06:59 05/09/18 08:01 Amlodipine Besylate (Norvasc) 2.5 mg DAILY ORAL 05/07/18 09:00 06/06/18 08:59 05/09/18 09:24 Atenolol (Tenormin) 50 mg DAILY ORAL 05/06/18 09:00 06/04/18 08:59 05/09/18 09:25 Baclofen (Lioresal) 10 mg TIDPRN PRN ORAL muscle spasm 05/05/18 13:15 06/04/18 13:14 05/08/18 10:31 Carbidopa/Levodopa (Sinemet 10/100) 1 tab FIVE TIMES A DAY ORAL 05/05/18 07:00 06/04/18 06:59 05/09/18 13:49 Ceftriaxone Sodium 1 gm/ Dextrose 55 ml @ 110 mls/hr Q24H IVPB 05/06/18 13:00 05/13/18 12:59 05/09/18 13:49 Clonazepam (KlonoPIN) 0.5 mg HSPRN PRN ORAL insomnia 05/05/18 13:15 05/12/18 13:14 Dextromethorphan/ Quinidine (Nuedexta Capsule) 1 cap Q12HR ORAL 05/05/18 21:00 06/04/18 20:59 05/09/18 09:24 Gabapentin (Neurontin) 100 mg BID ORAL 05/05/18 18:00 06/04/18 08:59 05/09/18 09:25 Heparin Sodium (Porcine) (Heparin 5000 units/ml) 5,000 units EVERY 12 HOURS SUBQ 05/05/18 09:00 06/04/18 08:59 05/09/18 09:26 Vancomycin HCl (Vanco rx to dose) 1 ea DAILY PRN MISC Per rx protocol 05/06/18 11:30 06/05/18 11:29 Vancomycin HCl 750 mg/Sodium Chloride 275 ml @ 183.333 mls/hr Q12H IVPB 05/09/18 14:00 05/14/18 13:59 05/09/18 14:27 Jazzmine Padron M.D. May 09, 2018 16:04
--- NOTE | 2018-05-09 19:00 | NUR ---
NURSE NOTES: Patient was evaluated at bedside by wound care nurse. Per wound care nurse, patient has left heel stage 1 pressure injury, and moisture related excoriation on buttock is also pressure related, skin is open. Photos were taken of buttock/sacrum and heel, uploaded to chart. Optiform was placed on bilateral heels for skin protection, optifoam dressing and triad cream re-applied to sacrum/buttock. Charted on wound assessment. Patient also placed on pressure relief mattress per order and recommendation of wound care nurse. Will endorse and continue to monitor.
--- NOTE | 2018-05-09 19:44 | NUR ---
HAND-OFF: Report given to [place] DEJESUS. Patient is in stable condition.
[2018-05-09 20:00] VITALS: BP 93/65
--- NOTE | 2018-05-09 20:11 | Cardiology Progress Note ---
Assessment/Plan Assessment/Plan 1. Chest congestion. 2. Generalized weakness. 3. Shortness of breath. 4. History of hyponatremia. 5. History of hypertension. k supplement seem ok some variable bp reading no chf poor appetite d/w fami;y who fee best she has looked since being admitted Subjective Cardiovascular: Denies: chest pain, lightheadedness Respiratory: Denies: shortness of breath Gastrointestinal/Abdominal: Reports: poor appetite; Denies: abdominal pain Genitourinary: Denies: burning Objective Last 24 Hour Vital Signs Date Time Temp Pulse Resp B/P (MAP) Pulse Ox O2 Delivery O2 Flow Rate FiO2 05/09/18 16:10 74 16 100 Room Air 21 05/09/18 16:02 68 12 96 Room Air 21 05/09/18 16:00 98.8 60 18 132/68 (89) 94 05/09/18 12:00 97.7 63 19 123/82 (96) 96 05/09/18 09:25 82 147/79 05/09/18 09:24 82 147/79 05/09/18 09:00 Room Air 05/09/18 08:07 73 16 100 Room Air 21 05/09/18 08:01 71 12 96 Room Air 21 05/09/18 08:00 97.4 82 20 147/79 (101) 94 05/09/18 04:00 97.4 71 18 122/56 (78) 96 05/09/18 00:00 98.1 67 18 138/70 (92) 96 05/08/18 23:21 77 16 100 Room Air 21 05/08/18 23:08 69 16 98 Room Air 21 05/08/18 21:00 Room Air General Appearance: no apparent distress, alert, other - movement Neck: no JVD Cardiovascular: normal rate Respiratory/Chest: lungs clear Abdomen: normal bowel sounds, non tender, soft Extremities: no swelling Intake and Output 05/08/18 05/09/18 18:59 06:59 Intake Total 720 ml Output Total 200 ml Balance 720 ml -200 ml Intake Oral 720 ml Output Urine Total 200 ml # Voids 4 Laboratory Tests Test 05/09/18 10:30 05/09/18 12:10 Ammonia 21 umol/L (11-32) Vancomycin Level Trough 5.0 ug/mL (5.0-12.0) Mario Durbin MD May 09, 2018 20:11
--- NOTE | 2018-05-09 20:39 | NUR ---
NURSE NOTES: Received report from ANJELICA Randolph. Patient is in bed, awake. No signs of distress. IV site patent. Family at bedside, will continue to monitor.
[2018-05-10] VITALS (7 sets, daily range): BP systolic 98–157; BP diastolic 57–90
[2018-05-10] MEDS: Albuterol ud Inhalation HHN SCH (00:05)
--- NOTE | 2018-05-10 00:45 | Consultation ---
DATE OF CONSULTATION: 05/08/2018 NEUROLOGICAL CONSULTATION: CONSULTING PHYSICIAN: Werner Hays M.D. This is a 77-year-old woman, first admission, who was admitted for wheezing, shortness of breath. I was asked to see the patient because of her Parkinson disease. HISTORY OF PRESENT ILLNESS: The patient has a previous history of scoliosis, Parkinson disease, and dementia. I called the patient's daughter, but she was when I left a message. She has a history of kyphosis and a previous back surgery. The patient also apparently had cerebral aneurysm with coiling in June of 2011. The patient was brought to the hospital. Her CBC was nearly normal. Her white count was 10,700. Her chemistries on admission revealed a normal lactic acid of 1, potassium of 2.9, creatinine of 0.5, magnesium 1.4, uric acid C-reactive protein was 5.8, albumin was 3. The rest of the liver function tests were normal. The patient had a chest x-ray, which revealed fusion rods noted within the mid thoracic and lumbar spine. There is no evidence of acute cardiopulmonary disease. Doppler echocardiogram was done on 05/06/2018. The ejection fraction is 60 to 65%. There was some mild valvular disease noted. The right ventricular systolic pressure was 20. The patient's EKG on admission revealed an accelerated junctional rhythm. EKG on 05/06/2018 was normal. The patient was noted to be weak and lethargic over the last few days. The patient was seen by Infectious Disease and placed on Rocephin 1 g q.24 hours, vancomycin 750 mg q.24 hours. She was also given baclofen, atenolol 50 mg, Norvasc 2.5 mg daily, albuterol, heparin subcutaneous, levodopa/carbidopa 1 tablet 5 times a day. cannot be obtained. There is no family history available. PAST MEDICAL HISTORY/PAST MEDICAL ILLNESSES: 1. Compression fracture of the spine. 2. Fracture of the pubis symphysis bilaterally. 3. Hypertension. 4. Hyponatremia. 5. Osteoporosis. 6. Renal stone. 7. History of right shoulder dislocation. 8. Spinal stenosis. 9. Recurrent urinary tract infection. 10. Memory loss. 11. Cerebral aneurysm. PAST SURGICAL HISTORY: 1. Back surgery. 2. . 3. Colonoscopy and endoscopy. 4. Cerebral angiogram with aneurysm coiling. SOCIAL HISTORY: She apparently lives with her family. FAMILY HISTORY: Not available. MEDICATIONS: Outpatient medications are baclofen, clonazepam, and gabapentin. REVIEW OF SYSTEMS: Unavailable. ALLERGIES: Unknown. PHYSICAL EXAMINATION: VITAL SIGNS: The pulse rate is 73 and regular, respirations 16, temperature is 97.4 degrees, blood pressure is , pulse oximetry is 100%. HEENT: The patient has blepharospasm. Can hardly open her eyes to voice. She has poor dentition. NECK: Somewhat stiff in all directions. Carotids are +2 without bruits. There is no apparent neck tenderness. LUNGS: The patient has some high-grade rales in the left lower lobe area. It is difficult to auscultate the right side. CARDIOVASCULAR: PMI was not felt. JVP was not visualized. The patient had a normal S1. S2 is physiologically split. There are no murmurs, rubs, S3, or S4 appreciated. ABDOMEN: Abdomen is obese, soft. No obvious tenderness or organomegaly. Bowel sounds intact. EXTREMITIES: There was no pitting edema noted. Peripheral pulses in the upper and lower extremities are +2. NEUROLOGIC EXAMINATION: MENTAL STATUS: The patient was lethargic, but occasionally opens her eyes to voice. She is oriented to her name, but not to date or place. She could do 1-step midline commands such as stick out her tongue. CRANIAL NERVE EXAMINATION: CRANIAL NERVE II: Visual tobias were grossly intact to confrontation. Fundi could not be evaluated because of blepharospasm. CRANIAL NERVE III, IV, AND : Keeping her eyes open, her eyes were in the midline. There is no doll's eye. Pupils are 3 mm, round, light reactive. CRANIAL NERVE V: Corneal sensation appeared to be intact. CRANIAL NERVE VII: Facial strength appeared to be symmetrical. CRANIAL NERVE VIII: Auditory acuity was partially intact. CRANIAL NERVES IX AND X: Gag was mildly decreased. CRANIAL NERVE XI: Could not be tested. CRANIAL NERVE XII: Tongue protruded in the midline with some tremor. MUSCLE EXAMINATION: Muscle tone is significantly increased in the right upper and right lower extremity and in the left lower extremity, but almost normal tone in the left upper extremity. She had a resting tremor of 3 to 4 cycles per seconds in the right arm. Muscle strength, she barely moves the right lower extremity to pain, but not the left lower extremity. She could grasp my hands with at least 4/5 strength bilaterally. REFLEXES: +1 to 2 in the upper extremities, 0 at the knees and ankles. There is an indefinite toe sign on the right and upgoing toe on the left. She had a positive glabellar response. SENSORY EXAM: She reacted to pain in all 4 extremities. IMPRESSION: This patient has what appears to be a tremor dependent Parkinson disease along with probable history of dementia now has a flare of metabolic encephalopathy. The blood cultures initially shows Staphylococcus species on 05/04/2018, but on 05/06/2018 revealed no growth. Urinalysis only revealed 2 to 4 wbc's per high-power field and few bacteria. That was unclear whether or not she has infection . In any event, we will further obtain the family history. Continue with Sinemet 5 times a day. This is probably her outpatient dose. PLAN: 1. Continue Sinemet 1 tablet p.o. 5 times a day. 2. CT scan of the brain. Thank you for this interesting case, Dr. Noe. Werner Hays MD DR: UMESH JOB#: [id number] CC:
--- NOTE | 2018-05-10 07:42 | NUR ---
NURSE NOTES: Received report ANJELICA [place]. Pt in bed, asleep, respirations regular and unlabored, bed in lowest position, call light within reach.
--- NOTE | 2018-05-10 08:25 | NUR ---
HAND-OFF: Report given to Devin Shetty. Patient stable. Addendum: 05/10/18 at 0825 by ORI CRUZ RN *given to Sari
[2018-05-10] MEDS: Levodopa/Carbidopa 10/100 tab ORAL SCH ×5 (08:36→18:09)
[2018-05-10] MEDS: Nuedexta Capsule 20/10mg ORAL SCH ×2 (08:37→20:24)
[2018-05-10] MEDS: Heparin 5000 units/ml inj SUBQ SCH ×2 (08:38→20:23)
--- NOTE | 2018-05-10 09:40 | NUR ---
NURSE NOTES: Notified Dr. Gordon BP 157/73, pt is diaphoretic. Diaphoresis was reported to have been increasing over last few days.
--- NOTE | 2018-05-10 13:01 | Nephrology Progress Note ---
Assessment/Plan Problem List: (1) UTI (urinary tract infection) (2) Encephalopathy due to infection (3) HTN (hypertension) (4) Parkinson disease Assessment no renal issues UTI-- Encephalopathy Dementia HTN controlled Parkinsons bronchitis Plan no labs- no renal issues down on mind altering meds urine c/s BP med adjustment will see infrequently Subjective ROS Limited/Unobtainable: No Constitutional: Reports: other - facial sweating Objective Objective Last 24 Hour Vital Signs Date Time Temp Pulse Resp B/P (MAP) Pulse Ox O2 Delivery O2 Flow Rate FiO2 05/10/18 11:47 97.1 68 18 150/57 (88) 96 05/10/18 08:56 Room Air 05/10/18 08:37 76 157/73 05/10/18 08:36 76 157/73 05/10/18 08:00 98.2 76 18 157/73 (101) 98 05/10/18 04:00 97.9 75 17 149/81 (103) 97 05/10/18 00:00 98.8 71 18 98/67 (77) 96 05/09/18 23:45 69 16 99 Room Air 21 05/09/18 23:30 66 16 96 Room Air 21 05/09/18 21:00 Room Air 05/09/18 20:00 98.8 67 18 93/65 (74) 96 05/09/18 16:10 74 16 100 Room Air 21 05/09/18 16:02 68 12 96 Room Air 21 05/09/18 16:00 98.8 60 18 132/68 (89) 94 Intake and Output 05/09/18 05/10/18 18:59 06:59 Intake Total 120 ml Output Total 500 ml 500 ml Balance -380 ml -500 ml Intake Oral 120 ml Output Urine Total 500 ml 500 ml # Voids 1 Height (Feet): 4 Height (Inches): 11.00 Weight (Pounds): 119 General Appearance: no apparent distress Objective no change Yoan Gordon MD May 10, 2018 13:01
--- NOTE | 2018-05-10 14:33 | Infectious Diseases Prog Note ---
Assessment/Plan Assessment/Plan Assessment: Acute bronchitis -CXR: No acute cardiopulmonary disease -influenza sc neg Gram positive bacteremia- contaminant -Bcx 03/14 CONS; repeat bcx NTD Afebrile No leukocytosis -u/a neg; ucx mixed gram positive growth Dementia Parkinson's Osteoporosis w/ compression fractures nephrolithiasis neuropathy brain aneurysm sp coiling 06/2011 HTN shoulder dislocation spinal stenosis spinal surgery recurrent UTIs Plan: -Cont to monitor off abx -05/09 SP IV Vancomycin #4 , Ceftriaxone #5 -05/05 SP azithromycin x1 -05/04 SP Levaquin x1 -f.u cx -Monitor CBC/CMP, temperatures -aspiration precautions Will continue to follow along with you. Subjective Allergies: Coded Allergies: Dairy (Verified Allergy, Severe, 05/04/18) diarrhea Subjective afebrile no leukocyrtosis repeat bcx NTD now off abx Objective Vital Signs Last 24 Hour Vital Signs Date Time Temp Pulse Resp B/P (MAP) Pulse Ox O2 Delivery O2 Flow Rate FiO2 05/10/18 11:47 97.1 68 18 150/57 (88) 96 05/10/18 08:56 Room Air 05/10/18 08:37 76 157/73 05/10/18 08:36 76 157/73 05/10/18 08:00 98.2 76 18 157/73 (101) 98 05/10/18 04:00 97.9 75 17 149/81 (103) 97 05/10/18 00:00 98.8 71 18 98/67 (77) 96 05/09/18 23:45 69 16 99 Room Air 21 05/09/18 23:30 66 16 96 Room Air 21 05/09/18 21:00 Room Air 05/09/18 20:00 98.8 67 18 93/65 (74) 96 05/09/18 16:10 74 16 100 Room Air 21 05/09/18 16:02 68 12 96 Room Air 21 05/09/18 16:00 98.8 60 18 132/68 (89) 94 Height (Feet): 4 Height (Inches): 11.00 Weight (Pounds): 119 Objective GENERAL: NAD HEENT: NCAT, MMM, EOMI LUNGS: CTAB, No w CARDIAC: RRR, S1, S2. ABDOMEN: Soft, nontender. Positive bowel sounds. Current Medications Medications (Trade) Dose Ordered Sig/Eliane Route PRN Reason Start Time Stop Time Status Last Admin Dose Admin Amlodipine Besylate (Norvasc) 2.5 mg DAILY ORAL 05/07/18 09:00 06/06/18 08:59 05/10/18 08:37 Atenolol (Tenormin) 50 mg DAILY ORAL 05/06/18 09:00 06/04/18 08:59 05/10/18 08:36 Baclofen (Lioresal) 10 mg TIDPRN PRN ORAL muscle spasm 05/05/18 13:15 06/04/18 13:14 05/08/18 10:31 Carbidopa/Levodopa (Sinemet 10/100) 1 tab FIVE TIMES A DAY ORAL 05/05/18 07:00 06/04/18 06:59 05/10/18 12:01 Clonazepam (KlonoPIN) 0.5 mg HSPRN PRN ORAL insomnia 05/05/18 13:15 05/12/18 13:14 Dextromethorphan/ Quinidine (Nuedexta Capsule) 1 cap Q12HR ORAL 05/05/18 21:00 06/04/18 20:59 05/10/18 08:37 Gabapentin (Neurontin) 100 mg BID ORAL 05/05/18 18:00 06/04/18 08:59 05/10/18 08:37 Heparin Sodium (Porcine) (Heparin 5000 units/ml) 5,000 units EVERY 12 HOURS SUBQ 05/05/18 09:00 06/04/18 08:59 05/10/18 08:38 Jazzmine Padron M.D. May 10, 2018 14:33
--- NOTE | 2018-05-10 18:30 | Cardiology Progress Note ---
Assessment/Plan Assessment/Plan 1. Chest congestion. 2. Generalized weakness. 3. Shortness of breath. 4. History of hyponatremia. 5. History of hypertension. k supplement seem ok some variable bp reading no chf increae norvasc Subjective Cardiovascular: Denies: chest pain, lightheadedness, palpitations Respiratory: Denies: orthopnea, shortness of breath Gastrointestinal/Abdominal: Denies: abdominal pain Genitourinary: Denies: burning Objective Last 24 Hour Vital Signs Date Time Temp Pulse Resp B/P (MAP) Pulse Ox O2 Delivery O2 Flow Rate FiO2 05/10/18 16:00 98.1 72 20 150/90 (110) 98 05/10/18 11:47 97.1 68 18 150/57 (88) 96 05/10/18 08:56 Room Air 05/10/18 08:37 76 157/73 05/10/18 08:36 76 157/73 05/10/18 08:00 98.2 76 18 157/73 (101) 98 05/10/18 04:00 97.9 75 17 149/81 (103) 97 05/10/18 00:00 98.8 71 18 98/67 (77) 96 05/09/18 23:45 69 16 99 Room Air 21 05/09/18 23:30 66 16 96 Room Air 21 05/09/18 21:00 Room Air 05/09/18 20:00 98.8 67 18 93/65 (74) 96 General Appearance: no apparent distress Neck: supple Cardiovascular: normal rate, regular rhythm Respiratory/Chest: lungs clear Abdomen: non tender, soft Extremities: no swelling Intake and Output 05/09/18 05/10/18 19:00 07:00 Intake Total 120 ml Output Total 500 ml 500 ml Balance -380 ml -500 ml Intake Oral 120 ml Output Urine Total 500 ml 500 ml # Voids 1 Laboratory Tests Test 05/10/18 17:45 Ammonia Pending Vitamin B12 Level Pending Thyroid Stimulating Hormone (TSH) Pending Mario Durbin MD May 10, 2018 18:30
--- NOTE | 2018-05-10 19:40 | NUR ---
HAND-OFF: Report given to ANJELICA Elaine.
--- NOTE | 2018-05-10 19:41 | NUR ---
NURSE NOTES: Received report & pt from ANJELICA Guo. Pt lying in bed, a&ox2, Nepalese speaking only, in room air. No s/s of acute distress & no c/o pain at this time. L heel dressing & buttocks dressing intact. IV site intact & S/L'd. Bed in lowest position, call light within reach. Will continue to monitor.
--- NOTE | 2018-05-11 | Progress Note ---
DATE: 05/10/2018 SUBJECTIVE: The patient is doing better. More awake and alert. OBJECTIVE: VITAL SIGNS: Temperature is 97.1 degrees, pulse is 60, regular, respiration rate is 18, and blood pressure is 150/57. GENERAL: The patient is alert and awake, but does not follow any commands. She does answer to her name. The patient did not have her CT scan of the brain or other blood tests ordered yesterday. CRANIAL NERVE EXAMINATION: CRANIAL NERVE II: Visual tobias were at least partially intact to confrontation. CRANIAL NERVES III, IV, AND VII: The eyes are in the midline. She could not follow and there were no eye movements. Pupils are approximately 3 mm, round, and partially light reactive. CRANIAL NERVE V: Corneal sensation is intact. CRANIAL NERVE VII: Face appears to be symmetrical. CRANIAL NERVE VIII: Could not be tested. CRANIAL NERVES XII: Could not be tested. MUSCLE EXAMINATION: Muscle bulk is fairly symmetrical. Tone is virtually lead pipe in the lower extremities. Increased tone with cogwheeling in the right upper extremity and decreased tone in the left upper extremity. Muscle movements are 0 in lower extremities. She has a 3 cycle per second resting tremor in the right upper extremity. There is a little movement in the upper extremities, but it is more in the lower extremities. REFLEXES: +2 left brachioradialis and biceps, +1 left triceps. The right upper extremity is trace to +1 in the brachioradialis, +1 at the biceps, 0 at the triceps, 0 at the knees and ankles with upgoing toes and testing for Babinski response. COORDINATION: Could not be done. SENSORY EXAMINATION: Sensation is intact to pain in all 4 extremities. IMPRESSION: The patient is more alert and awake, and actually follows less commands than yesterday. The patient's encephalopathy seems to be improving overall. We will get the above tests and see if there is anything new. PLAN: 1. TSH, B12 level. 2. Noncontrast CT scan of the brain. Werner MD Lis DR: UMESH JOB#: [id number] CC:
[2018-05-11 04:00] VITALS: BP 155/82
--- NOTE | 2018-05-11 06:00 | NUR ---
NURSE NOTES: Changed buttock & b/l heel dressings. Re-applied triad cream and optifoam dressing.
[2018-05-11] MEDS: Levodopa/Carbidopa 10/100 tab ORAL SCH ×5 (06:24→18:01)
--- NOTE | 2018-05-11 07:10 | NUR ---
NURSE NOTES: Received report from ANJELICA Guo. Pt in bed, awake, talkative, no complaints of pain, no apparent distress noted, bed in lowest position, call light within reach.
--- NOTE | 2018-05-11 07:18 | NUR ---
HAND-OFF: Report given to ANJELICA Guo. Pt in stable condition.
[2018-05-11 08:00] VITALS: BP 140/78
[2018-05-11] MEDS: Nuedexta Capsule 20/10mg ORAL SCH ×2 (09:41→20:19)
[2018-05-11] MEDS: Heparin 5000 units/ml inj SUBQ SCH ×2 (09:42→20:20)
--- NOTE | 2018-05-11 09:47 | Infectious Diseases Prog Note ---
Assessment/Plan Assessment/Plan Acute bronchitis -CXR: No acute cardiopulmonary disease -influenza sc neg Gram positive bacteremia- contaminant -Bcx 03/14 CONS; repeat bcx NTD Afebrile No leukocytosis -u/a neg; ucx mixed gram positive growth Dementia Parkinson's Osteoporosis w/ compression fractures nephrolithiasis neuropathy brain aneurysm sp coiling 06/2011 HTN shoulder dislocation spinal stenosis spinal surgery recurrent UTIs Plan: -Monitor off abx -05/09 SP IV Vancomycin #4 , Ceftriaxone #5 -05/05 SP azithromycin x1 -05/04 SP Levaquin x1 -f.u cx -Monitor CBC/CMP, temperatures -aspiration precautions Will continue to follow along with you. Subjective Allergies: Coded Allergies: Dairy (Verified Allergy, Severe, 05/04/18) diarrhea Subjective Afebrile No Leukocytosis Objective Vital Signs Last 24 Hour Vital Signs Date Time Temp Pulse Resp B/P (MAP) Pulse Ox O2 Delivery O2 Flow Rate FiO2 05/11/18 09:41 69 140/78 05/11/18 09:41 69 140/78 05/11/18 08:00 98.4 69 17 140/78 (98) 96 05/11/18 04:00 97.8 72 17 155/82 (106) 95 05/10/18 23:52 98.4 62 16 109/71 (84) 97 05/10/18 21:00 Room Air 05/10/18 20:00 98.6 60 17 140/75 (96) 96 05/10/18 16:00 98.1 72 20 150/90 (110) 98 05/10/18 11:47 97.1 68 18 150/57 (88) 96 Height (Feet): 4 Height (Inches): 11.00 Weight (Pounds): 117 Objective GENERAL: NAD, laying in bed HEENT: NCAT, MMM, EOMI LUNGS: CTAB, No w CARDIAC: RRR, S1, S2. ABDOMEN: Soft, nontender. Positive bowel sounds. Laboratory Tests Test 05/10/18 17:45 Ammonia 24 umol/L (11-32) Vitamin B12 Level 409 PG/ML (193-986) Thyroid Stimulating Hormone (TSH) 2.965 uiU/mL (0.358-3.740) Current Medications Medications (Trade) Dose Ordered Sig/Eliane Route PRN Reason Start Time Stop Time Status Last Admin Dose Admin Amlodipine Besylate (Norvasc) 5 mg DAILY ORAL 05/11/18 09:00 06/06/18 08:59 05/11/18 09:41 Atenolol (Tenormin) 50 mg DAILY ORAL 05/06/18 09:00 06/04/18 08:59 05/11/18 09:41 Baclofen (Lioresal) 10 mg TIDPRN PRN ORAL muscle spasm 05/05/18 13:15 06/04/18 13:14 05/08/18 10:31 Carbidopa/Levodopa (Sinemet 10/100) 1 tab FIVE TIMES A DAY ORAL 05/05/18 07:00 06/04/18 06:59 05/11/18 09:45 Clonazepam (KlonoPIN) 0.5 mg HSPRN PRN ORAL insomnia 05/05/18 13:15 05/12/18 13:14 Dextromethorphan/ Quinidine (Nuedexta Capsule) 1 cap Q12HR ORAL 05/05/18 21:00 06/04/18 20:59 05/11/18 09:41 Gabapentin (Neurontin) 100 mg BID ORAL 05/05/18 18:00 06/04/18 08:59 05/11/18 09:41 Heparin Sodium (Porcine) (Heparin 5000 units/ml) 5,000 units EVERY 12 HOURS SUBQ 05/05/18 09:00 06/04/18 08:59 05/11/18 09:42 Jeffrey Blake MD May 11, 2018 09:47
--- NOTE | 2018-05-11 11:37 | Diagnostic Imaging Report ---
Indications: Altered mental status Technique: Spiral acquisitions obtained through the brain. Angled axial and coronal 5 x 5 mm slices were reconstructed. Total dose length product 1382.77 mGycm. CTDI vol(s) 70.38 mGy. Dose reduction achieved using automated exposure control Comparison: None. Findings: Right supraclinoid aneurysm coils are noted. This throws off streak artifact which could obscure pathology. There is also some image degradation due to motion artifact. There is some encephalomalacia of the posterior medial right parietal lobe. A large calcification is seen in the left posterior parasagittal parietal cortex. There is evidence of encephalomalacia in the inferior left frontal operculum. There is generalized age-related enlargement of the ventricles and extra axial CSF spaces. No acute intracranial hemorrhage nor edema, mass effect, nor midline shift. The calvarium is intact. There is evidence of prior cataract surgery bilaterally. Sinuses are unremarkable. The mastoids are clear. Impression: Limited exam, due to streak artifact from aneurysm coils and mild motion artifact Old infarcts, as described Large left parietal calcification, likely on the basis of old cysticercosis. Other chronic changes as described Negative for definite evidence of acute intracranial bleed or mass effect The CT scanner at [facility] is accredited by the [employer] and the scans are performed using protocols designed to limit radiation exposure to as low as reasonably achievable to attain images of sufficient resolution adequate for diagnostic evaluation.
[2018-05-11 12:00] VITALS: BP 144/79
--- NOTE | 2018-05-11 14:12 | Nephrology Progress Note ---
Assessment/Plan Problem List: (1) UTI (urinary tract infection) (2) Encephalopathy due to infection (3) HTN (hypertension) (4) Parkinson disease Assessment no renal issues UTI-- Encephalopathy Dementia HTN controlled Parkinsons bronchitis Plan no labs- no renal issues down on mind altering meds urine c/s BP med adjustment will see infrequently Subjective ROS Limited/Unobtainable: No Objective Objective Last 24 Hour Vital Signs Date Time Temp Pulse Resp B/P (MAP) Pulse Ox O2 Delivery O2 Flow Rate FiO2 05/11/18 12:00 98.0 72 17 144/79 (100) 96 05/11/18 09:41 69 140/78 05/11/18 09:41 69 140/78 05/11/18 09:00 Room Air 05/11/18 08:00 98.4 69 17 140/78 (98) 96 05/11/18 04:00 97.8 72 17 155/82 (106) 95 05/10/18 23:52 98.4 62 16 109/71 (84) 97 05/10/18 21:00 Room Air 05/10/18 20:00 98.6 60 17 140/75 (96) 96 05/10/18 16:00 98.1 72 20 150/90 (110) 98 Intake and Output 05/10/18 05/11/18 19:00 07:00 Intake Total 840 ml 360 ml Output Total 500 ml 700 ml Balance 340 ml -340 ml Intake Oral 840 ml 360 ml Output Urine Total 500 ml 700 ml # Voids 1 # Bowel Movements 1 Laboratory Tests 05/10/18 17:45: Ammonia 24, Vitamin B12 Level 409, Thyroid Stimulating Hormone (TSH) 2.965 Height (Feet): 4 Height (Inches): 11.00 Weight (Pounds): 117 General Appearance: no apparent distress Objective no change Yoan Gordon MD May 11, 2018 14:12
[2018-05-11 16:00] VITALS: BP 148/80
--- NOTE | 2018-05-11 18:44 | General Progress Note ---
Assessment/Plan Assessment/Plan S/P BRONCHTIIS POSITIVE BLOOD CULTURE Dementia Parkinson's Osteoporosis w/ compression fractures nephrolithiasis neuropathy brain aneurysm sp coiling 06/2011 HTN HISTORY shoulder dislocation spinal stenosis spinal surgery recurrent UTIs DOING BETTER PLAN DC TO [facility] SHE AHS BEEN THERE INTHE PAST FAMILY REQUESTED IT. Subjective Date patient seen: May 11, 2018 Time patient seen: 18:42 Constitutional: Reports: no symptoms HEENT: Reports: no symptoms Allergies: Coded Allergies: Dairy (Verified Allergy, Severe, 05/04/18) diarrhea Subjective ALERT TREPSONSIVE NO ISSUE SNO FEVE RNOCHILLS Objective Last 24 Hour Vital Signs Date Time Temp Pulse Resp B/P (MAP) Pulse Ox O2 Delivery O2 Flow Rate FiO2 05/11/18 16:00 98.1 64 17 148/80 (102) 96 05/11/18 12:00 98.0 72 17 144/79 (100) 96 05/11/18 09:41 69 140/78 05/11/18 09:41 69 140/78 05/11/18 09:00 Room Air 05/11/18 08:00 98.4 69 17 140/78 (98) 96 05/11/18 04:00 97.8 72 17 155/82 (106) 95 05/10/18 23:52 98.4 62 16 109/71 (84) 97 05/10/18 21:00 Room Air 05/10/18 20:00 98.6 60 17 140/75 (96) 96 Intake and Output 05/10/18 05/11/18 19:00 07:00 Intake Total 840 ml 360 ml Output Total 500 ml 700 ml Balance 340 ml -340 ml Intake Oral 840 ml 360 ml Output Urine Total 500 ml 700 ml # Voids 1 # Bowel Movements 1 Height (Feet): 4 Height (Inches): 11.00 Weight (Pounds): 117 General Appearance: WD/WN EENT: PERRL/EOMI Cardiovascular: normal rate, regularly irregular, no JVD Respiratory/Chest: lungs clear Abdomen: non tender, soft Extremities: other - NO EDEMA Jeffrey Noe MD May 11, 2018 18:44
--- NOTE | 2018-05-11 19:30 | NUR ---
NURSE NOTES: Received report & pt from ANJELICA Guo. Pt lying in bed, a&ox2, [place] speaking only, in room air, family member at bedside. No s/s of acute distress & no c/o pain at this time. IV site intact & S/L'd. Bed in lowest position, call light within reach. Will continue to monitor.
--- NOTE | 2018-05-11 19:45 | Progress Note ---
DATE: 05/11/2018 SUBJECTIVE: The patient is about the same. She is alert and awake. No seizures. CT scan was noted reveals a large calcification in the left posterior parasagittal parietal cortex and evidence of encephalomalacia in the inferior left frontal operculum. There is encephalomalacia in the posterior medial right parietal lobe. No acute abnormalities are noted. The aneurysm coils give off a streak artifact. Vitamin B12 was 409. TSH is 2.965. PHYSICAL EXAMINATION: VITAL SIGNS: The temperature is 98 degrees, pulse is 72 and regular, blood pressure 144/79, pulse oximetry 96. MENTAL STATUS: The patient has some evidence of echolalia. She does not know the date or place, but does know her name. She cannot answer any questions. She cannot do midline commands or raise her left arm to command. CRANIAL NERVE EXAMINATION: CRANIAL NERVE II: Visual tobias are grossly intact to confrontation. CRANIAL NERVES III, IV, AND : There appeared to be some horizontal movement bilaterally, which seemed full. No vertical eye movements could be done. Pupils are approximately 3 mm, round, sluggishly reactive to light. CRANIAL NERVE V: Corneal sensation is intact bilaterally. CRANIAL NERVE VII: Facial strength appeared to be fairly symmetrical. CRANIAL NERVE VIII: Auditory acuity was partially intact. CRANIAL NERVES IX AND X: The patient bulldogged on the tongue depressor. CRANIAL NERVES XI THROUGH XII: Could not be tested. MUSCLE EXAMINATION: There is increased cogwheel rigidity in the right arm. No rigidity in both lower extremities. There is minimal cogwheel rigidity of the left arm. She can move the left arm, but not the right arm nor could she move the legs. REFLEXES: She had an upgoing toe on the right side and downgoing toe on the left side and testing for Babinski response. SENSORY EXAMINATION: Intact to deep pain. IMPRESSION: The patient has metabolic encephalopathy, which is resolving to mainly to possibly influenza, her viral illness. The TSH and B12 levels are basically normal. There is no subdural hematoma noted. PLAN: Follow the patient with you. Werner Hays MD DR: UMESH JOB#: [id number] CC:
[2018-05-11 20:00] VITALS: BP 146/67
[2018-05-12] VITALS: BP 159/83
[2018-05-12 04:00] VITALS: BP 141/75
--- NOTE | 2018-05-12 06:00 | NUR ---
NURSE NOTES: Re-applied triad cream on buttock area with optifoam dressing, also on b/l heels
[2018-05-12] MEDS: Levodopa/Carbidopa 10/100 tab ORAL SCH ×5 (06:18→19:07)
--- NOTE | 2018-05-12 07:30 | NUR ---
HAND-OFF: Report given to ANJELICA Hare. Pt in stable condition.
[2018-05-12 08:00] VITALS: BP 169/78
[2018-05-12] MEDS: Nuedexta Capsule 20/10mg ORAL SCH ×2 (09:37→21:13)
[2018-05-12] MEDS: Heparin 5000 units/ml inj SUBQ SCH ×2 (09:39→21:14)
--- NOTE | 2018-05-12 10:39 | Infectious Diseases Prog Note ---
Assessment/Plan Assessment/Plan Acute bronchitis -CXR: No acute cardiopulmonary disease -influenza sc neg Gram positive bacteremia- contaminant -Bcx 03/14 CONS; repeat bcx NTD Afebrile No leukocytosis -u/a neg; ucx mixed gram positive growth Dementia Parkinson's Osteoporosis w/ compression fractures nephrolithiasis neuropathy brain aneurysm sp coiling 06/2011 HTN shoulder dislocation spinal stenosis spinal surgery recurrent UTIs Plan: -Monitor off abx as she is clinically stable -05/09 SP IV Vancomycin #4 , Ceftriaxone #5 -05/05 SP azithromycin x1 -05/04 SP Levaquin x1 -f.u cx -Monitor CBC/CMP, temperatures -aspiration precautions Will continue to follow along with you. Subjective Allergies: Coded Allergies: Dairy (Verified Allergy, Severe, 05/04/18) diarrhea Subjective Afebrile No Leukocytosis SAMMI Objective Vital Signs Last 24 Hour Vital Signs Date Time Temp Pulse Resp B/P (MAP) Pulse Ox O2 Delivery O2 Flow Rate FiO2 05/12/18 09:37 67 169/78 05/12/18 09:37 67 169/78 05/12/18 08:17 Room Air 05/12/18 08:00 98.0 67 16 169/78 (108) 96 05/12/18 04:00 98.0 68 20 141/75 (97) 96 05/12/18 00:00 97.9 68 20 159/83 (108) 97 05/11/18 21:00 Room Air 05/11/18 20:00 98.9 57 20 146/67 (93) 96 05/11/18 16:00 98.1 64 17 148/80 (102) 96 05/11/18 12:00 98.0 72 17 144/79 (100) 96 Height (Feet): 4 Height (Inches): 11.00 Weight (Pounds): 117 Objective GENERAL: NAD HEENT: NCAT, MMM, EOMI LUNGS: CTAB, No w CARDIAC: RRR, S1, S2. ABDOMEN: Soft, nontender. Positive bowel sounds. Current Medications Medications (Trade) Dose Ordered Sig/Eliane Route PRN Reason Start Time Stop Time Status Last Admin Dose Admin Amlodipine Besylate (Norvasc) 5 mg DAILY ORAL 05/11/18 09:00 06/06/18 08:59 05/12/18 09:37 Atenolol (Tenormin) 50 mg DAILY ORAL 05/06/18 09:00 06/04/18 08:59 05/12/18 09:37 Baclofen (Lioresal) 10 mg TIDPRN PRN ORAL muscle spasm 05/05/18 13:15 06/04/18 13:14 05/08/18 10:31 Carbidopa/Levodopa (Sinemet 10/100) 1 tab FIVE TIMES A DAY ORAL 05/05/18 07:00 06/04/18 06:59 05/12/18 09:48 Clonazepam (KlonoPIN) 0.5 mg HSPRN PRN ORAL insomnia 05/05/18 13:15 05/12/18 13:14 Dextromethorphan/ Quinidine (Nuedexta Capsule) 1 cap Q12HR ORAL 05/05/18 21:00 06/04/18 20:59 05/12/18 09:37 Gabapentin (Neurontin) 100 mg BID ORAL 05/05/18 18:00 06/04/18 08:59 05/12/18 09:38 Heparin Sodium (Porcine) (Heparin 5000 units/ml) 5,000 units EVERY 12 HOURS SUBQ 05/05/18 09:00 06/04/18 08:59 05/12/18 09:39 Jeffrey Blake MD May 12, 2018 10:39
[2018-05-12 12:00] VITALS: BP 108/65
--- NOTE | 2018-05-12 14:41 | NUR ---
CASE MANAGEMENT:REVIEW 05/12/18 SI: BACTEREMIA. ENCEPHALOPATHY. BRONCHITIS H/O PARKINSON'S 98.6 60 17 108/65 95% ON RA IS: NORVASC PO QD ATENOLOL PO QD NEURONTIN PO BID HEPARIN SQ Q12 : MED/SURG STATUS 3 EAST DCP: PATIENT IS FROM HOME
--- NOTE | 2018-05-12 14:45 | NUR ---
8DISCHARGE PLANNING PATIENT HAS BEEN REFERRED TO [facility] T: [phone] AWAIT ACCEPTANCE
[2018-05-12] MEDS ORDERED: NS 500ML ONE (14:49)
--- NOTE | 2018-05-12 15:00 | NUR ---
NURSE NOTES: DR Antonio QUINTERO CALLED RE: PT'S DAUGHTER (AKI) WANTS HER MOTHER TO GO HOME INSTEAD OF GOING TO REHAB UNIT. GAVE PT'S NUMBER [phone].
--- NOTE | 2018-05-12 15:34 | Nephrology Progress Note ---
Assessment/Plan Problem List: (1) UTI (urinary tract infection) (2) Encephalopathy due to infection (3) HTN (hypertension) (4) Parkinson disease Assessment no renal issues UTI-- Encephalopathy Dementia HTN controlled Parkinsons bronchitis Plan no labs- no renal issues down on mind altering meds urine c/s BP med adjustment will see infrequently Subjective ROS Limited/Unobtainable: No Constitutional: Reports: malaise Objective Objective Last 24 Hour Vital Signs Date Time Temp Pulse Resp B/P (MAP) Pulse Ox O2 Delivery O2 Flow Rate FiO2 05/12/18 12:00 98.6 60 17 108/65 (79) 95 05/12/18 09:37 67 169/78 05/12/18 09:37 67 169/78 05/12/18 08:17 Room Air 05/12/18 08:00 98.0 67 16 169/78 (108) 96 05/12/18 04:00 98.0 68 20 141/75 (97) 96 05/12/18 00:00 97.9 68 20 159/83 (108) 97 05/11/18 21:00 Room Air 05/11/18 20:00 98.9 57 20 146/67 (93) 96 05/11/18 16:00 98.1 64 17 148/80 (102) 96 Intake and Output 05/11/18 05/12/18 19:00 07:00 Intake Total 360 ml 240 ml Output Total 200 ml 200 ml Balance 160 ml 40 ml Intake Oral 360 ml 240 ml Output Urine Total 200 ml 200 ml # Voids 3 Height (Feet): 4 Height (Inches): 11.00 Weight (Pounds): 117 General Appearance: no apparent distress Objective no change Yoan Gordon MD May 12, 2018 15:34
[2018-05-12 16:00] VITALS: BP 121/94
--- NOTE | 2018-05-12 18:54 | NUR ---
NURSE NOTES: comfortable in bed. in no distress.
--- NOTE | 2018-05-12 19:23 | NUR ---
HAND-OFF: Report given to mateo petty.
--- NOTE | 2018-05-12 19:37 | Physician Query ---
--------- THIS DOCUMENT IS A PERMANENT PART OF THE MEDICAL RECORD --------- PLEASE COMPLETE DOCUMENT BEFORE SIGNING Dear Dr. Silvano Noe, Date: _05/12/18 Range Master/CDS Name: Josue Herrera CCDS Range Master/CDS Phone No.: Exercise your independent professional judgment when responding to the query. Questions asked do not imply a particular answer is desired or expected. We greatly appreciate your clarification on this issue. CLINICAL DOCUMENTATION STATES: The patient is a 71-year-old female, slight encephalopathy. She had upper respiratory symptoms. Pt was treated with the following antibiotics:IV Vancomcin 05/06-Ceftriaxone 05/05-Levaquin x1 05/04azithromycin 05/05 x1 pt was diagnosed with UTI and bronchitis. CLINICAL FINDINGS SHOW: Lab: WBC: 10.7 Uric Acid: 2.3 CRP:5.8H ProBNP: 523 H B/C:(+) for staph (05/04) and without growth on (05/06) v/s: T:99.7 X2 RR:20 MT:83,81 RR:22,20 BP: 180/84,144/69 Please respond to the following question: Is there a diagnosis specific to these symptoms or values? If so please state below. PHYSICIAN RESPONSE: Condition Present on Admission: [] Yes [] No xxx[]Clinically Undeterminable Please also document in your Progress Notes and/or Discharge Summary and indicate if the condition was present on admission. MTDD
--- NOTE | 2018-05-12 19:48 | NUR ---
NURSE NOTES: Received patient awake in bed, able to verbalize needs, no c/o pain at this time, no s/s of acute distress. IV site asymptomatic, dressing reinforced. Bed on lowest position, call light and belongings within reach, 2 side rails up, HOB at 35 degrees.
[2018-05-12 20:00] VITALS: BP 118/82
--- NOTE | 2018-05-12 20:07 | NUR ---
HEAD WORKER Co-Signature Notes: Reviewed patient's chart. Reviewed and approved HEAD WORKER notes. Addendum: 05/12/18 at 2007 by MG BLUM PT Amended: Links added.
[2018-05-13] VITALS: BP 151/78
[2018-05-13 04:00] VITALS: BP 113/84
[2018-05-13] MEDS: Levodopa/Carbidopa 10/100 tab ORAL SCH ×4 (06:28→15:53)
--- NOTE | 2018-05-13 07:37 | NUR ---
HAND-OFF: Written Report given to ANJELICA Hare .
--- NOTE | 2018-05-13 07:40 | Infectious Diseases Prog Note ---
Assessment/Plan Assessment/Plan Acute bronchitis -CXR: No acute cardiopulmonary disease -influenza sc neg Gram positive bacteremia- contaminant -Bcx 03/14 CONS; repeat bcx NTD Afebrile No leukocytosis -u/a neg; ucx mixed gram positive growth Dementia Parkinson's Osteoporosis w/ compression fractures nephrolithiasis neuropathy brain aneurysm sp coiling 06/2011 HTN shoulder dislocation spinal stenosis spinal surgery recurrent UTIs Plan: -Monitor off abx -05/09 SP IV Vancomycin #4 , Ceftriaxone #5 -05/05 SP azithromycin x1 -05/04 SP Levaquin x1 -f.u cx -Monitor CBC/CMP, temperatures -aspiration precautions Will continue to follow along with you. Subjective Allergies: Coded Allergies: Dairy (Verified Allergy, Severe, 05/04/18) diarrhea Subjective Afebrile No Leukocytosis Awake Objective Vital Signs Last 24 Hour Vital Signs Date Time Temp Pulse Resp B/P (MAP) Pulse Ox O2 Delivery O2 Flow Rate FiO2 05/13/18 04:00 98.4 64 20 113/84 (94) 96 05/13/18 00:00 98.8 66 18 151/78 (102) 95 05/12/18 21:00 Room Air 05/12/18 20:00 98.4 64 18 118/82 (94) 95 05/12/18 16:00 98.1 66 16 121/94 (103) 96 05/12/18 12:00 98.6 60 17 108/65 (79) 95 05/12/18 09:37 67 169/78 05/12/18 09:37 67 169/78 05/12/18 08:17 Room Air 05/12/18 08:00 98.0 67 16 169/78 (108) 96 Height (Feet): 4 Height (Inches): 11.00 Weight (Pounds): 117 Objective GENERAL: NAD, Awake HEENT: NCAT, MMM, EOMI LUNGS: CTAB, No w CARDIAC: RRR, S1, S2. ABDOMEN: Soft, nontender. Positive bowel sounds. Current Medications Medications (Trade) Dose Ordered Sig/Eliane Route PRN Reason Start Time Stop Time Status Last Admin Dose Admin Amlodipine Besylate (Norvasc) 5 mg DAILY ORAL 05/11/18 09:00 06/06/18 08:59 05/12/18 09:37 Atenolol (Tenormin) 50 mg DAILY ORAL 05/06/18 09:00 06/04/18 08:59 05/12/18 09:37 Baclofen (Lioresal) 10 mg TIDPRN PRN ORAL muscle spasm 05/05/18 13:15 06/04/18 13:14 05/08/18 10:31 Carbidopa/Levodopa (Sinemet 10/100) 1 tab FIVE TIMES A DAY ORAL 05/05/18 07:00 06/04/18 06:59 05/13/18 06:28 Dextromethorphan/ Quinidine (Nuedexta Capsule) 1 cap Q12HR ORAL 05/05/18 21:00 06/04/18 20:59 05/12/18 21:13 Gabapentin (Neurontin) 100 mg BID ORAL 05/05/18 18:00 06/04/18 08:59 05/12/18 17:25 Heparin Sodium (Porcine) (Heparin 5000 units/ml) 5,000 units EVERY 12 HOURS SUBQ 05/05/18 09:00 06/04/18 08:59 05/12/18 21:14 Jeffrey Blake MD May 13, 2018 07:40
--- NOTE | 2018-05-13 07:51 | NUR ---
NURSE NOTES: AWAKE/ALERT. NO C/O PAIN .IN NO DISTRESS.
--- NOTE | 2018-05-13 07:52 | NUR ---
NURSE NOTES: AWAKE/ALERT. NO C/O PAIN. IN NO DISTRESS.
[2018-05-13 08:00] VITALS: BP 132/56
[2018-05-13] MEDS: Nuedexta Capsule 20/10mg ORAL SCH (08:49)
[2018-05-13] MEDS: Heparin 5000 units/ml inj SUBQ SCH (08:52)
--- NOTE | 2018-05-13 10:46 | NUR ---
WEEKLY SUMMARY S: PATIENT CLEARED FOR ST INTERVENTION BY RN LIZZ SHE WAS AWAKE, VERBAL, ANSWERING QUESTIONS WHEN THEY WERE PRESENTED IN [place]. SHE ASKED "OPEN MY EYES" WHILE SHE KEPT HER EYES TIGHTLY CLOSED. STAFF REPORT PATIENT OPENS HER EYES MOST OF THE TIME O: DYSPHAGIA FOLLOWUP A: PATIENT TOLERATING CURRENT DIET WITH NO OVERT S/S OF ASPIRATION MEALTIME PROTOCOL POSTED AT BEDSIDE. PER DRAIN TECHNICIAN, PATIENT IS TOTAL ASSIST AND FEEDING HER TAKES EXTRA TIME DUE TO PATIENTS SLOW MASTICATION. DURING THIS WEEK THE PATIENTS P.O. INTAKE WAS VARIABLE BUT SUFFICIENT TO SUPPORT NUTRITION/HYDRATION NEEDS PATIENT MET HER TREATMENT GOALS FOR SAFE/SUFFICIENT P.O. INTAKE WITH LEAST RESTRICTIVE DIET P: D/C PENDING TO RETURN HOME WITH FAMILY P: CONTINUE PER PLAN
[2018-05-13 12:00] VITALS: BP 151/90
--- NOTE | 2018-05-13 12:51 | NUR ---
DISCHARGE PLANNING PATIENT AND FAMILY REFUSING SNF PLACEMENT PLAN IS FOR DISCHARGE HOME AND RESUME CARE WITH [facility] T: [phone]
--- NOTE | 2018-05-13 15:30 | NUR ---
NURSE NOTES: TOOK PICTURE OF REDNESS OF LEFT HEEL. UNABLE TO UPLOAD PHOTO AT THIS TIME.
[2018-05-13 16:00] VITALS: BP 109/68
--- NOTE | 2018-05-13 16:31 | Nephrology Progress Note ---
Assessment/Plan Problem List: (1) UTI (urinary tract infection) (2) Encephalopathy due to infection (3) HTN (hypertension) (4) Parkinson disease Assessment no renal issues UTI-- Encephalopathy Dementia HTN controlled Parkinsons bronchitis Plan no labs- no renal issues down on mind altering meds urine c/s BP med adjustment will see infrequently Subjective ROS Limited/Unobtainable: No Objective Objective Last 24 Hour Vital Signs Date Time Temp Pulse Resp B/P (MAP) Pulse Ox O2 Delivery O2 Flow Rate FiO2 05/13/18 12:00 98.3 66 19 151/90 (110) 96 05/13/18 09:29 Room Air 05/13/18 08:49 63 132/56 05/13/18 08:48 63 132/56 05/13/18 08:00 99.0 63 17 132/56 (81) 94 05/13/18 04:00 98.4 64 20 113/84 (94) 96 05/13/18 00:00 98.8 66 18 151/78 (102) 95 05/12/18 21:00 Room Air 05/12/18 20:00 98.4 64 18 118/82 (94) 95 Intake and Output 05/12/18 05/13/18 19:00 07:00 Intake Total 2000 ml Output Total 1500 ml 450 ml Balance 500 ml -450 ml Intake Oral 2000 ml Output Urine Total 1500 ml 450 ml # Voids 2 Height (Feet): 4 Height (Inches): 11.00 Weight (Pounds): 117 General Appearance: no apparent distress Objective no change Yoan Gordon MD May 13, 2018 16:31
--- NOTE | 2018-05-13 18:23 | NUR ---
NURSE NOTES: DISCHARGED HOME PER WHEELCHAIR ACCPD BY DAUGHTER IN STABLE CONDITION. DC INSTRUCTIONS GIVEN.
--- NOTE | 2018-05-16 11:53 | Discharge Summary ---
Discharge Summary Discharge Summary _ DATE OF ADMISSION: 05/04/2018 DATE OF DISCHARGE: 05/13 DISCHARGED BY: Dr. Noe REASON FOR ADMISSION: 77 years old female with past medical history of hypertension, dementia, osteoarthritis bilateral knee, Parkinson disease, scoliosis, history of kyphosis , history of back surgery, compression fracture of spine, recurrent urinary tract infection, cerebral aneurysm , status post surgery , presented to emergency room for evaluation for increased weakness and lethargy in the last few days. According to daughter , she had flulike symptoms and possibly was given them to her mother. Patient presented with cough , congestion , but afebrile. Daughter reported reduced appetite. Upon evaluation vital signs revealed elevated blood pressure 180/84. Laboratory workup revealed no leukocytosis, WBC 10.7, stable hemoglobin and hematocrit. Stable electrolytes and renal parameters. Lactic acid 1.0. Glucose 101. Stable LFT. Urinalysis revealed hematuria, +3 protein, but no evidence of urinary tract infection. EKG revealed normal sinus rhythm. Chest x-ray revealed no acute cardiopulmonary pathology. Rapid influenza screen test was negative. Patient was pancultured, started on IV fluids and empiric antibiotic. Patient admitted for further management. CONSULTANTS: machinist general Dr. Durbin neurologist Dr. Hays ID specialist Dr. Hooper care specialist Dr. Gordon HOSPITAL COURSE: Patient admitted and started on empiric antibiotic and gentle IV hydration. ID specialist followed. Initial blood culture revealed Staphylococcus coagulase negative Urine culture revealed mixed urogenital contaminants. Repeated blood culture on 05/06 were negative. Per ID specialist., gram-positive bacteremia was contaminant. Patient remained afebrile, no leukocytosis. Urinalysis was negative, and urine culture revealed mixed gram-positive contaminants. Infectious disease doctor recommended to keep patient off antibiotic and observe closely. Youth Program Director followed. Echocardiogram revealed preserved ejection fraction of 60-65% with mild left ventricular hypertrophy. No evidence of wall motion abnormality. Right ventricular systolic pressure of 20. Lipid panel was stable. TSH was within normal limits. Blood pressure was managed with calcium channel malcolm and beta-malcolm. No evidence of CHF exacerbation. Supplemental oxygen provided as needed to keep pulse oximetry above 90%. Pulmonary toilet with bronchodilator provided as needed. Antitussive provided as needed. DVT prophylaxis provided. Fall precaution maintained. Sinemet continued. Patient was working with physical therapist. Bedside swallow evaluation revealed evidence of oropharyngeal dysphagia diet. Diet provided as per speech therapist recommendation with strict aspiration/ reflux precaution and one-to-one assistance. Renal parameters and electrolytes were closely monitored, electrolytes corrected as needed. Nephrotoxins were avoided. Wood Fence Erector follow. Potassium and magnesium were replaced. Neurologist followed. Per neurologist, patient had metabolic encephalopathy , which resolved , possibly due to viral illness. TSH and B12 within normal limits. No evidence of subdural hematoma.. Hemoglobin and hematocrit were closely monitored with goal to keep hemoglobin above 7. Hemoglobin and hematocrit remained at the baseline. Anemia workup revealed evidence of anemia of chronic disease. Pain management was addressed as needed. Supportive care provided. Bowel regimen instituted. Family initially preferred to send patient to long term facility for further rehabilitation. However later, as patient stabilized, she was ready for discharge home with home health services. FINAL DIAGNOSES: Acute bronchitis -resolved Metabolic encephalopathy , likely due to viral infection Parkinson's disease Dysphagia Hypertension History of recurrent UTI Nephrolithiasis Electrolyte abnormalities / hypokalemia, hypomagnesemia Dementia Osteoporosis with compression fracture Spinal stenosis Brain aneurysm , status post coiling in 2011 DISCHARGE MEDICATIONS: See Medication Reconciliation list. DISCHARGE INSTRUCTIONS: Patient was discharged home with home health services. Follow up with primary care provider in one week. I have been assigned to dictate discharge summary for this account. I was not involved in the patient's management. Ly Cho NP May 16, 2018 11:53
== END 2018-05-13 18:20 | disposition home health service (06) | DRG 202 ==
LOC: EMR 18:45 → EDBEDREQ 18:52 → 3E 19:59 → EDBEDREQ 20:36
DX: J20.9 Acute bronchitis, unspecified (principal); G93.41 Metabolic encephalopathy; M80.88XA Other osteoporosis with current pathological fracture, vertebra(e), initial encounter for fracture; I10 Essential (primary) hypertension; G20 Parkinson's disease; F02.80 Dementia in other diseases classified elsewhere, unspecified severity, without behavioral disturbance, psychotic disturbance, mood disturbance, and anxiety; M17.0 Bilateral primary osteoarthritis of knee; M41.9 Scoliosis, unspecified; R13.10 Dysphagia, unspecified; N20.0 Calculus of kidney; M48.00 Spinal stenosis, site unspecified; Z87.440 Personal history of urinary (tract) infections; D63.8 Anemia in other chronic diseases classified elsewhere
CPT/HCPCS: 36415; 70450; 71045; 80053; 80061; 80202; 81003; 82140; 82550; 82607; 82728; 82746; 82977; 83036; 83540; 83550; 83605; 83735; 83880; 84100; 84443; 84484; 84550; 85025; 86140; 86710; 87040; 87086; 87181; 93005; 93306; 94640; 94664; 96365; 99285; J8499

== ENCOUNTER 2018-07-24 20:11 | Inpatient (IN) | payer MEDICARE, OTHER ==
[~2018-07-24] VITALS: Ht 157.5 cm; Wt 48.1 kg
[~2018-07-24 20:11] MED LIST changes: +BACLOFEN10 MG ORAL; +GABAPENTIN100 MG ORAL; +KLONOPIN0.5 MG ORAL; +NUEDEXTA 20-101 EAC1 PO; +SINEMET 10-1001 EACH ORAL; +SYSTANE COMPLET10 ML OP
[2018-07-24 20:14] VITALS: BP 129/87
--- NOTE | 2018-07-24 20:14 | NUR ---
ED Nurse Note: Pt was brought in ED from home by family. c/o left arm and hip pain after fell last night. Pt has Hx of Parkinson's disease. Pt is A/O X4. C/O left arm and hip pain 8/. Vital signs stable at this time, waiting for orders.
[2018-07-24] MEDS ORDERED: Ketorolac 30mg Inj IV ONE (20:15)
[2018-07-24] MEDS ORDERED: Sodium Chloride 550 ML IV SCH (20:15)
--- NOTE | 2018-07-24 20:30 | NUR ---
ED Nurse Note: Blood sent to Lab .
--- NOTE | 2018-07-24 20:37 | NUR ---
ED Nurse Note: Meds given as ordered.
[2018-07-24 20:41] LABS: EOSINOPHILS % (AUTO) 11.2 % (0.0-3.0); HEMATOCRIT 36.1 % (37.0-47.0); HEMOGLOBIN 12.5 G/DL (12.0-16.0); LYMPHOCYTES % (AUTO) 25.9 % (20.0-45.0); MEAN CORPUSCULAR VOLUME 90 FL (80-99); MONOCYTES % (AUTO) 6.6 % (1.0-10.0); NEUTROPHILS % (AUTO) 54.3 % (45.0-75.0); PLATELET COUNT 215 K/UL (150-450); RED CELL DISTRIBUTION WIDTH 12.3 % (11.6-14.8)
[2018-07-24 20:49] LABS: ANION GAP 10 mmol/L (5-15); BLOOD UREA NITROGEN 19 mg/dL (7-18); CARBON DIOXIDE 25 MMOL/L (21-32); CHLORIDE 100 MMOL/L (98-107); CREATININE 0.6 MG/DL (0.55-1.30); SODIUM 135 MMOL/L (136-145)
[2018-07-24 20:54] LABS: ALANINE AMINOTRANSFERASE 6 U/L (12-78); ALBUMIN 3.9 G/DL (3.4-5.0); ALBUMIN/GLOBULIN RATIO 1.2 (1.0-2.7); ALKALINE PHOSPHATASE 131 U/L (46-116); ASPARTATE AMINO TRANSFERASE 14 U/L (15-37); BILIRUBIN,TOTAL 0.3 MG/DL (0.2-1.0)
--- NOTE | 2018-07-24 20:59 | NUR ---
ED Nurse Note: Pt was sent down for CT.
--- NOTE | 2018-07-24 21:02 | NUR ---
ED Nurse Note: Pt is unable to void but refused to have stright cath at this time, informed dr. Lo, will try it later.
--- NOTE | 2018-07-24 21:06 | Emergency Room Report ---
History of Present Illness General Chief Complaint: Multiple Trauma/Fall Source: Patient, Family Member (Jeffrey Lo MD) Present Illness HPI Patient fell against a hardwood floor. He is unable to ambulate afterwards. Uncertain whether she hit her head. She is complaining about left hip pain. She has had multiple falls. Is Parkinson's. Daughter was transferring her and turned away for a moment. Daughter is unable to transfer the patient anymore because of the hip pain. The pain is rated 5/10 and aching but worse when she attempts to weight-bear. No fevers, chills, chest pain, palpitations, nausea, vomiting, diarrhea, dysuria , abdominal pain, shortness of breath, depression, visual changes, headache. (Jeffrey Lo MD) Allergies: Coded Allergies: Dairy (Verified Allergy, Severe, 05/04/18) diarrhea Patient History Past Medical History: see triage record Past Surgical History: other - Aneurysm coiling 2011, back and knee surgery Social History: Denies: smoking, alcohol use, drug use Social History Narrative Lives with daughter Last Menstrual Period: n/a Reviewed Nursing Documentation: PMH: Agreed; PSxH: Agreed (Jeffrey Lo MD) Nursing Documentation-PMH Past Medical History: No History, Except For Hx Cardiac Problems: Yes Hx Hypertension: Yes Hx Cancer: No Hx Gastrointestinal Problems: No Hx Neurological Problems: Yes - Parkinsons Hx Parkinson's Disease: Yes Hx Neurologic Surgery: No - ANEURYSM HAD COILING ON 06/2011 (Jeffrey Lo MD) Review of Systems All Other Systems: negative except mentioned in HPI (Jeffrey Lo MD) Physical Exam Vital Signs Date Time Temp Pulse Resp B/P (MAP) Pulse Ox O2 Delivery O2 Flow Rate FiO2 07/24/18 20:12 99.3 72 18 128/88 (101) 100 Room Air Sp02 EP Interpretation: reviewed, normal General Appearance: alert, GCS 15, Chronically Ill Head: normocephalic, atraumatic Eyes: bilateral eye normal inspection, bilateral eye PERRL, bilateral eye EOMI ENT: moist mucus membranes Neck: supple Respiratory: lungs clear, normal breath sounds Cardiovascular #1: regular rate, rhythm Cardiovascular #2: 2+ radial (R) Gastrointestinal: normal inspection, normal bowel sounds, non tender, no mass, non-distended Musculoskeletal: back normal, gait/station normal, normal range of motion, pelvis stable, other - Left leg shortened and externally rotated, tender - Left hip Neurologic: alert, oriented x3, motor strength/tone normal - Cog wheeling, DTRs symmetric, sensory intact, other - Wilver-ballistic movements Psychiatric: mood/affect normal Skin: normal inspection, warm/dry (Jeffrey Lo MD) Medical Decision Making Diagnostic Impression: Primary Impression: Fracture, intertrochanteric, left femur Qualified Codes: S72.145A - Nondisplaced intertrochanteric fracture of left femur, initial encounter for closed fracture Additional Impressions: Multiple falls Parkinsons disease ER Course Patient presents post fall with left hip pain and inability to ambulate. Differential includes pelvic fracture, hip fracture, hip contusion amongst others. X-rays or labs are indicated. She also might of hit her head CT of the head is also ordered. Analgesia is given. EKG without injury. CT of the head with prior injury. Labs unremarkable. X-rays without obvious fracture. Patient unable to ambulate with assistance. Pain is greatly improved. Consult with Dr. Newman requested. Signed out to Dr. Carranza. Dr. Carranza performed CT scan which revealed nondisplaced intertrochanteric fracture. Admit medical floor. The patient was discussed with Dr. Gordon. He requested with speak with Dr. Noe. Laboratory Tests Test 07/24/18 20:27 07/24/18 21:47 White Blood Count 8.0 K/UL (4.8-10.8) Red Blood Count 4.00 M/UL (4.20-5.40) L Hemoglobin 12.5 G/DL (12.0-16.0) Hematocrit 36.1 % (37.0-47.0) L Mean Corpuscular Volume 90 FL (80-99) Mean Corpuscular Hemoglobin 31.1 PG (27.0-31.0) H Mean Corpuscular Hemoglobin Concent 34.5 G/DL (32.0-36.0) Red Cell Distribution Width 12.3 % (11.6-14.8) Platelet Count 215 K/UL (150-450) Mean Platelet Volume 5.1 FL (6.5-10.1) L Neutrophils (%) (Auto) 54.3 % (45.0-75.0) Lymphocytes (%) (Auto) 25.9 % (20.0-45.0) Monocytes (%) (Auto) 6.6 % (1.0-10.0) Eosinophils (%) (Auto) 11.2 % (0.0-3.0) H Basophils (%) (Auto) 2.0 % (0.0-2.0) Prothrombin Time 10.5 SEC (9.30-11.50) Prothrombin Time INR 1.0 (0.9-1.1) PTT 26 SEC (23-33) Sodium Level 135 MMOL/L (136-145) L Potassium Level 4.0 MMOL/L (3.5-5.1) Chloride Level 100 MMOL/L (98-107) Carbon Dioxide Level 25 MMOL/L (21-32) Anion Gap 10 mmol/L (5-15) Blood Urea Nitrogen 19 mg/dL (7-18) H Creatinine 0.6 MG/DL (0.55-1.30) Estimate Glomerular Filtration Rate mL/min (>60) Glucose Level 124 MG/DL (74-106) H Calcium Level 9.0 MG/DL (8.5-10.1) Total Bilirubin 0.3 MG/DL (0.2-1.0) Aspartate Amino Transferase (AST) 14 U/L (15-37) L Alanine Aminotransferase (ALT) 6 U/L (12-78) L Alkaline Phosphatase 131 U/L (46-116) H Total Protein 7.2 G/DL (6.4-8.2) Albumin 3.9 G/DL (3.4-5.0) Globulin 3.3 g/dL Albumin/Globulin Ratio 1.2 (1.0-2.7) Urine Color Yellow Urine Appearance Clear Urine pH 6.5 (4.5-8.0) Urine Specific [place] 1.010 (1.005-1.035) Urine Protein 1+ (NEGATIVE) H Urine Glucose (UA) Negative (NEGATIVE) Urine Ketones 1+ (NEGATIVE) H Urine Blood 4+ (NEGATIVE) H Urine Nitrite Negative (NEGATIVE) Urine Bilirubin Negative (NEGATIVE) Urine Urobilinogen 1 MG/DL (0.0-1.0) H Urine Leukocyte Esterase Negative (NEGATIVE) Urine RBC 5-10 /HPF (0 - 2) H Urine WBC 0 /HPF (0 - 2) Urine Squamous Epithelial Cells None /LPF (NONE/OCC) Urine Bacteria Occasional /HPF (NONE) (Jeffrey Lo MD) ER Course Patient sent out to me. She presents with a mechanical fall and hip contusion. Unable to ambulate. I did a CT scan to r/o occult fracture. Patient was to be admitted to Dr. Noe or Dr. Gordon. Discussed the case with Dr. Noe. The patient to his service. I also let Dr. Gordon know of the admission. (Pop Carranza MD) EKG Diagnostic Results Rate: normal Rhythm: NSR ST Segments: no acute changes (Jeffrey Lo MD) Rhythm Strip Diag. Results EP Interpretation: yes Rhythm: NSR, no PVC's, no ectopy (Jeffrey Lo MD) Chest X-Ray Diagnostic Results Chest X-Ray Diagnostic Results : Chest X-Ray Ordered: Yes # of Views/Limited/Complete: 1 View Indication: Other EP Interpretation: Yes Interpretation: no consolidation, no effusion, no pneumothorax Impression: No acute disease Electronically Signed by: Electronically signed by Jeffrey Lo MD (Jeffrey Lo MD) Other X-Ray Diagnostic Results Other X-Ray Diagnostic Results : X-Ray ordered: pelvis, L hip # of Views/Limited Vs Complete: 3 View Indication: Pain EP Interpretation: Yes Interpretation: no dislocation, no soft tissue swelling, no fractures, other - see CT scan Impression: Other Electronically Signed by: Electronically signed by Jeffrey Lo MD (Jeffrey Lo MD) CT/MRI/US Diagnostic Results CT/MRI/US Diagnostic Results : Imaging Test Ordered: CT left hip Impression Read by radiologist. left nondisplaced intertrochanteric frx. (Pop Carranza MD) Last Vital Signs Date Time Temp Pulse Resp B/P (MAP) Pulse Ox O2 Delivery O2 Flow Rate FiO2 07/24/18 20:12 99.3 72 18 128/88 (101) 100 Room Air Status: improved (Jeffrey Lo MD) Status: improved (Pop Carranza MD) Disposition: ADMITTED INPATIENT Condition: Serious Referrals: Jeffrey Noe MD (PCP) Jeffrey Lo MD Jul 24, 2018 21:06 Pop Carranza MD Jul 24, 2018 23:00
--- NOTE | 2018-07-24 21:23 | NUR ---
ED Nurse Note: Pt returned from CT.
--- NOTE | 2018-07-24 21:34 | NUR ---
HAND-OFF: Report given to Jayleen/RN for continue care.
--- NOTE | 2018-07-24 21:45 | NUR ---
ED Nurse Note: RECIEVED REPORT FROM ANJELICA SANDERS TO RESUME CARE PRIMARY NURSE, PT IS IN BED AWAKE, ALERT AND ORIENTED X 4, PT IS HERE FOR S/P MECHANICAL FALL WITH LEFT SIDE AND HIP PAIN, PT PLACED IN GOWN, PLACED ON CARDIAC ONITORING, VINES PLACED ORDERED AND URINE SAMPLE SENT, WILL RESUME CARE ORDERED AND CLOSELY MONITOR.
[2018-07-24 22:03] LABS: APPEARANCE,URINE CLEAR; BILIRUBIN, URINE NEGATIVE (NEGATIVE); GLUCOSE, URINE (UA) NEGATIVE (NEGATIVE); KETONES,URINE 1+ (NEGATIVE); LEUKOCYTE ESTERASE ,URINE NEGATIVE (NEGATIVE); NITRITE,URINE NEGATIVE (NEGATIVE); PH,URINE 6.5 (4.5-8.0); PROTEIN,URINE 1+ (NEGATIVE); UROBILINOGEN,URINE 1 MG/DL (0.0-1.0)
[2018-07-24 22:10] LABS: COLOR,URINE YELLOW
[2018-07-24] MEDS ORDERED: Morphine Sulfate 2mg/ml Inj(IV/IM USE ONLY) IVP ONE (22:30)
[2018-07-25] VITALS (7 sets, daily range): BP systolic 110–168; BP diastolic 64–91
[2018-07-25] MEDS ORDERED: Tylenol #3 tab (300mg/30mg) ORAL PRN (00:15)
--- NOTE | 2018-07-25 00:30 | NUR ---
NURSE NOTES: Received pt from Magali via donte, CRUZ, [place] speaking, able to make needs known without any problems, denies pain at this time, no distress, IV R FA patent and intact, rios to gravity with good output. Bed in lowest position, locked, bed alarm on, side rails up x 3, call light within reach.
[2018-07-25] MEDS: Levodopa/Carbidopa 10/100 tab ORAL SCH ×5 (06:26→19:35)
--- NOTE | 2018-07-25 07:35 | NUR ---
HAND-OFF: Report given to ANJELICA Abel. Pt in stable condition.
--- NOTE | 2018-07-25 07:37 | NUR ---
NURSE NOTES: Received report from Shamar Boston RN. Rounding done with outgoing nurse. Patient is asleep. Bed in lowest position, call light within reach. Will continue to monitor.
[2018-07-25] MEDS: clonazePAM 0.5mg tab ORAL SCH (09:41)
[2018-07-25] MEDS: Heparin 5000 units/ml inj SUBQ SCH ×2 (09:42→20:30)
--- NOTE | 2018-07-25 10:33 | Diagnostic Imaging Report ---
Indication: Reason For Exam: TRAUMA Technique: Noncontrast spiral acquisitions obtained through the left hip Multiplanar reconstructions were generated. Total dose length product 287.1 mGycm. CTDIvol(s) 12.07 mGy. Radiation dose was minimized using automated exposure control Comparison: Plain radiographs of earlier the same day Findings: There is a nondisplaced fracture of the posterior cortex of the femur, extending from the level of the lesser trochanter to the greater trochanter. Noted definite and anterior cortical fracture line is demonstrated.. No right hip fracture demonstrated. There is an old healed fracture deformity of the right inferior pubic ramus. There are degenerative changes of the lumbosacral spine. There is a unilateral right L5 pars defect. There is minimal anterolisthesis of L5 on S1. There is some flattening of the L4 and L5 vertebral bodies. Uncertain as to whether this reflects compression fracture changes or degenerative remodeling. The hip joints are preserved. There is a Jon catheter within the bladder, which is decompressed. Some calcifications are seen in the left ovary. There is sigmoid diverticulosis. The highest cuts demonstrate lumbar spine fusion hardware. There are some decubitus changes in the retrococcygeal region Impression: Positive for left hip intertrochanteric fracture, nondisplaced. Note that anterior fracture line is not convincingly demonstrated, so it is not completely certain that this is a through and through fracture, although suspect that it is Flattening of L5, probably compression fracture deformity, but possibly on the basis of degenerative remodeling Unilateral right L5 spondylolysis, minimal L5 on S1 spondylolisthesis Extensive degenerative spondylosis Old healed right inferior pubic ramus fracture deformity Colonic diverticulosis Jon catheter Retrococcygeal decubitus changes. Correlate with clinical findings This agrees with the preliminary interpretation provided overnight by [facility] teleradiology service. The CT scanner at [facility] is accredited by the [employer] and the scans are performed using protocols designed to limit radiation exposure to as low as reasonably achievable to attain images of sufficient resolution adequate for diagnostic evaluation.
--- NOTE | 2018-07-25 11:37 | NUR ---
CASE MANAGEMENT:REVIEW 77 YR OLD FEMALE FROM HOME TO ER CC: MULTIPLE FALLS. LT SIDED PAIN SI: LEFT FEMUR FRACTURE 99.3 72 18 128/88 100% ON RA GLUCOSE+124 IS: IV TORADOL IV ZOFRAN 500CC NS BOLUS CT HEAD CHEST XRAY XRAY HIP : TO MED/SURG UNIT 3 EAST PLAN: NEURO CHECKS Q4HRS MRI LT HIP INTERQUAL CRITERIA MET
--- NOTE | 2018-07-25 13:20 | NUR ---
NURSE NOTES:RECEIVED REPORT FR.JOO DEJESUS.RE:CONTINUITY OF CARE.PATIENT CURRENTLY OFF THE UNIT RE:MRI LEFT HIP.
--- NOTE | 2018-07-25 13:53 | NUR ---
NURSE NOTES:BACK FR. MRI,BY SULMA.AWAKE CAMBODIAN SPEAKING.NAD.WILL CONTINUE PLAN OF CARE.
--- NOTE | 2018-07-25 14:02 | GI Initial Consult Note ---
History of Present Illness General Date patient seen: Jul 25, 2018 Time patient seen: 13:55 Reason for Hospitalization: Multiple Trauma/Fall Referring physician: TORITO BISHOP Reason for Consultation: Nausea / Constipation Present Illness HPI Patient fell against a hardwood floor. He is unable to ambulate afterwards. Uncertain whether she hit her head. She is complaining about left hip pain. She has had multiple falls. Is Parkinson's. Daughter was transferring her and turned away for a moment. Daughter is unable to transfer the patient anymore because of the hip pain. The pain is rated 5/10 and aching but worse when she attempts to weight-bear. No fevers, chills, chest pain, palpitations, nausea, vomiting, diarrhea, dysuria , abdominal pain, shortness of breath, depression, visual changes, headache. GI consulted for nausea and constipation. Pt seen, awake A&O NAD denies any abdominal pain at this time. Patient is poor historian unable to provide any significant history. Denies any currrent nausea or vomiting. Labs reviewed; no leukocytosis, no anemia, no transaminitis. Unknown history of endoscopy or colonoscopy. Home Meds Reported Medications Clonazepam* (KLONOPIN*) 0.5 Mg Tablet, 0.5 MG ORAL DAILY, #15 TAB 0 Refills 05/04/18 Carbidopa/Levodopa* (SINEMET 10-100 MG TABLET*) 1 Each Tablet, 1 TAB ORAL FIVE TIMES A DAY, TAB 05/04/18 Gabapentin* (GABAPENTIN*) 100 Mg Capsule, 100 MG ORAL QID, CAP 05/04/18 Atenolol* (TENORMIN*) 50 Mg Tablet, 50 MG PO DAILY, #10 TAB Take 1 tablet by mouth every day. 11/16/11 Discontinued Reported Medications Dextromethorphan Hbr/Quinidine (NUEDEXTA 20-10 MG CAPSULE) 1 Each Capsule, 1 EACH PO BID, CAP 05/04/18 Propylene Glycol (Systane Complete) 10 Ml Drops, 10 ML OP PRN for Dry Eyes, ML 05/04/18 Baclofen* (BACLOFEN*) 10 Mg Tablet, 10 MG ORAL THREE TIMES A DAY, TAB 05/04/18 Omeprazole (OMEPRAZOLE) 40 Mg Capsule.dr, 40 MG PO DAILY 11/16/11 Med list reviewed/reconciled: Yes Allergies: Coded Allergies: Dairy (Verified Allergy, Severe, 05/04/18) diarrhea Patient History History Provided By: Patient, Medical Record PMH Narrative Past Medical History: see triage record Past Surgical History: other - Aneurysm coiling 2011, back and knee surgery Social History: Denies: smoking, alcohol use, drug use Social History Narrative Lives with daughter Last Menstrual Period: n/a Reviewed Nursing Documentation: PMH: Agreed; PSxH: Agreed (Torito Lo MD) Nursing Documentation-PMH Past Medical History: No History, Except For Hx Cardiac Problems: Yes Hx Hypertension: Yes Hx Cancer: No Hx Gastrointestinal Problems: No Hx Neurological Problems: Yes - Parkinson Hx Parkinson's Disease: Yes Hx Neurologic Surgery: No - ANEURYSM HAD COILING ON 06/2011 Social History: Denies: smoking, alcohol use, drug use, other Review of Systems All Other Systems: negative except mentioned in HPI Physical Exam Vital Signs Date Time Temp Pulse Resp B/P (MAP) Pulse Ox O2 Delivery O2 Flow Rate FiO2 07/24/18 20:12 99.3 72 18 128/88 (101) 100 Room Air Sp02 EP Interpretation: reviewed, normal Labs Laboratory Tests Test 07/24/18 20:27 07/24/18 21:47 White Blood Count 8.0 K/UL (4.8-10.8) Red Blood Count 4.00 M/UL (4.20-5.40) L Hemoglobin 12.5 G/DL (12.0-16.0) Hematocrit 36.1 % (37.0-47.0) L Mean Corpuscular Volume 90 FL (80-99) Mean Corpuscular Hemoglobin 31.1 PG (27.0-31.0) H Mean Corpuscular Hemoglobin Concent 34.5 G/DL (32.0-36.0) Red Cell Distribution Width 12.3 % (11.6-14.8) Platelet Count 215 K/UL (150-450) Mean Platelet Volume 5.1 FL (6.5-10.1) L Neutrophils (%) (Auto) 54.3 % (45.0-75.0) Lymphocytes (%) (Auto) 25.9 % (20.0-45.0) Monocytes (%) (Auto) 6.6 % (1.0-10.0) Eosinophils (%) (Auto) 11.2 % (0.0-3.0) H Basophils (%) (Auto) 2.0 % (0.0-2.0) Prothrombin Time 10.5 SEC (9.30-11.50) Prothromb Time International Ratio 1.0 (0.9-1.1) Activated Partial Thromboplast Time 26 SEC (23-33) Sodium Level 135 MMOL/L (136-145) L Potassium Level 4.0 MMOL/L (3.5-5.1) Chloride Level 100 MMOL/L (98-107) Carbon Dioxide Level 25 MMOL/L (21-32) Anion Gap 10 mmol/L (5-15) Blood Urea Nitrogen 19 mg/dL (7-18) H Creatinine 0.6 MG/DL (0.55-1.30) Estimat Glomerular Filtration Rate mL/min (>60) Glucose Level 124 MG/DL (74-106) H Calcium Level 9.0 MG/DL (8.5-10.1) Total Bilirubin 0.3 MG/DL (0.2-1.0) Aspartate Amino Transf (AST/SGOT) 14 U/L (15-37) L Alanine Aminotransferase (ALT/SGPT) 6 U/L (12-78) L Alkaline Phosphatase 131 U/L (46-116) H Total Protein 7.2 G/DL (6.4-8.2) Albumin 3.9 G/DL (3.4-5.0) Globulin 3.3 g/dL Albumin/Globulin Ratio 1.2 (1.0-2.7) Urine Color Yellow Urine Appearance Clear Urine pH 6.5 (4.5-8.0) Urine Specific [place] 1.010 (1.005-1.035) Urine Protein 1+ (NEGATIVE) H Urine Glucose (UA) Negative (NEGATIVE) Urine Ketones 1+ (NEGATIVE) H Urine Blood 4+ (NEGATIVE) H Urine Nitrite Negative (NEGATIVE) Urine Bilirubin Negative (NEGATIVE) Urine Urobilinogen 1 MG/DL (0.0-1.0) H Urine Leukocyte Esterase Negative (NEGATIVE) Urine RBC 5-10 /HPF (0 - 2) H Urine WBC 0 /HPF (0 - 2) Urine Squamous Epithelial Cells None /LPF (NONE/OCC) Urine Bacteria Occasional /HPF (NONE) General Appearance: well appearing, no apparent distress, alert Head: normocephalic EENT: PERRL/EOMI, normal ENT inspection Neck: supple Respiratory: normal breath sounds, no respiratory distress Cardiovascular: normal rate Gastrointestinal: normal inspection, non tender, soft, normal bowel sounds, non -distended Rectal: deferred Genitourinary: no CVA tenderness Musculoskeletal: normal inspection, back normal Neurologic: alert, responsive Skin: normal inspection, normal color, no rash, warm/dry, palpation normal, well hydrated Lymphatic: normal inspection, no adenopathy Current Medications Current Medications Medications (Trade) Dose Ordered Sig/Eliane Route PRN Reason Start Time Stop Time Status Last Admin Dose Admin Acetaminophen (Tylenol) 650 mg Q4H PRN ORAL Mild Pain/Temp > 100.5 07/25/18 00:15 08/24/18 00:14 Acetaminophen/ Codeine Phosphate (Tylenol #3) 1 tab Q4H PRN ORAL Severe Pain (Pain Scale 7-10) 07/25/18 00:15 08/01/18 00:14 Atenolol (Tenormin) 50 mg DAILY ORAL 07/25/18 09:00 08/24/18 08:59 07/25/18 09:41 Carbidopa/Levodopa (Sinemet 10/100) 1 tab FIVE TIMES A DAY ORAL 07/25/18 07:00 08/24/18 06:59 07/25/18 09:41 Clonazepam (KlonoPIN) 0.5 mg DAILY ORAL 07/25/18 09:00 08/01/18 08:59 07/25/18 09:41 Gabapentin (Neurontin) 200 mg BID ORAL 07/25/18 09:00 08/24/18 08:59 07/25/18 09:41 Heparin Sodium (Porcine) (Heparin 5000 units/ml) 5,000 units EVERY 12 HOURS SUBQ 07/25/18 09:00 08/24/18 08:59 07/25/18 09:42 GI: Plan Problems: (1) Constipation (2) Nausea (3) General weakness (4) Altered mental status Plan no plans for GI procedures at this time, symptomatic treatment okay to advance to cardiac diet zofran prn, reglan for persistent vomiting ppi bowel regime, colace + miralax pain mgmt fu ortho recommendations follow labs, trend LFTs outpatient GI procedures Discussed with Dr. Gould. Thank you for this patient referral, we will follow. The patient was seen and examined at bedside and all new and available data was reviewed in the patients chart. I agree with the above findings, impression and plan. (Patient seen earlier today. Signature stamp does not reflect patient encounter time.). - MD Tere HayesPage HospitalRafiq DIXON Jul 25, 2018 14:02
--- NOTE | 2018-07-25 15:28 | Diagnostic Imaging Report ---
Indication: Shortness of breath Technique: One view of the chest Comparison: 05/04/2018 Findings: Right upper rib cage deformity again noted. Anterior dislocation of the right shoulder again noted. Surgical fusion rods in the lower thoracic and upper lumbar spine again noted. Mild interstitial prominence has suggestion of chronic appearance. This appears more prominent than on the prior exam but probably due to differences in exposure technique. The heart is enlarged. The aorta is markedly tortuous and ectatic. Impression: Mild interstitial prominence, suspect chronic but mild interstitial congestion also possible Cardiomegaly Chronic right upper rib cage deformity. Anterior right shoulder dislocation, also evident previously, presumed chronic Other findings as noted
--- NOTE | 2018-07-25 15:32 | Diagnostic Imaging Report ---
Indications: Head pain, status post fall Technique: Spiral acquisitions obtained through the brain. Angled axial and coronal 5 x 5 mm slices were reconstructed. Total dose length product 1390.16 mGycm. CTDI vol(s) 70.38 mGy. Dose reduction achieved using automated exposure control Comparison: 05/11/2018 Findings: Exam is limited due to streak artifact from aneurysm coils. There is also motion artifact limiting evaluation. There is a small area of cortical encephalomalacia in the right posterior parietal lobe again demonstrated. A large calcification is seen in the posterior parasagittal left parietal lobe. This measures 9 mm in diameter. Some encephalomalacia is again demonstrated in the right parasagittal parietal lobe. As mentioned above, there are supraclinoid aneurysm coils in the midline. No definite acute intracranial hemorrhage or edema, mass effect, nor midline shift. There is marked age-related enlargement of the ventricles and extra axial CSF spaces, and considerable periventricular deep white matter low-attenuation. Old infarct is seen in the left inferior frontal deep white matter. Intact calvarium. Visualized orbits and sinuses are grossly unremarkable. The mastoids are grossly clear No definite significant interim change Impression: Very limited exam, as described No definite acute intracranial bleed or mass effect Multiple old infarcts, as described Calcification in the left posterior parietal lobe, but uncertain etiology, also previously reported Evidence of prior aneurysm coiling This agrees with the preliminary interpretation provided overnight by [facility] teleradiology service. The CT scanner at [facility] is accredited by the [employer] and the scans are performed using protocols designed to limit radiation exposure to as low as reasonably achievable to attain images of sufficient resolution adequate for diagnostic evaluation.
--- NOTE | 2018-07-25 15:38 | Diagnostic Imaging Report ---
Indication: Trauma, pain Technique: One view the pelvis, 2 views of the left hip Comparison: none Findings: There is an old healed fracture of the right inferior pubic ramus. Very questionable lucencies are seen at the tip of the greater trochanter and within the intertrochanteric region of the left hip. No other evidence of acute fracture. No dislocations. The joint spaces are preserved. Impression: No definite acute bony trauma. Note, however, that subsequent imaging does demonstrate a nondisplaced intertrochanteric fracture. There is only minimal equivocal evidence of this on current plain radiograph
--- NOTE | 2018-07-25 16:01 | Diagnostic Imaging Report ---
Indication: Left hip pain, left hip fracture seen on recent CT scan Technique: Coronal and axial T1 fast spin echo imaging of the bilateral hips, coronal and axial FSE IR images of the bilateral hips, coronal oblique and sagittal proton-density fat-saturated images of the left hip Comparison: Comparison made to CT scan 07/24/2018 Findings: There is some image degradation due to motion artifact. Marrow edema is seen extending from the tip of the greater trochanter to the region of the lesser trochanter. Note that on the axial images, the marrow edema extends to the posterior cortex where fracture line is visible on CT, extends through the medullary space, but does not necessarily reach the anterior cortex. No displaced fracture is demonstrated. Edema of the surrounding musculature is also noted, particularly posteriorly. Old healed right inferior pubic ramus fracture is best appreciated on recent CT scan. No other acute fracture demonstrated. No large joint effusion demonstrated. The labrum is insufficiently well visualized to assess. A Jon catheter is present within the bladder Impression: Positive for nondisplaced left hip intertrochanteric fracture. As demonstrated on CT, this involves the posterior cortex and MRI confirms involvement of the medullary space. However, fracture line does not necessary involve the anterior cortex until reaching the tip of the greater trochanter. Evidence of edema of the surrounding musculature, indicating associated soft tissue injury. Jon catheter within the bladder incidentally noted.
[2018-07-25] MEDS: Docusate 100mg cap ORAL SCH (18:12)
--- NOTE | 2018-07-25 19:10 | NUR ---
HAND-OFF: Report given to .FELICIA PARNELL.PATIENT STABLE ON REPORT
--- NOTE | 2018-07-25 19:10 | NUR ---
NURSE NOTES:[facility] Patient Thai speaking . A/A/AOX3 with episode of confusion . Family members at bedside . patient denies pain at this time . no s/s of distress noted.RH g#20 H/L Patent and intact. call light within reach. bed in low position at all times . bed alarm on.will continue to monitor.
[2018-07-25] MEDS: Miralax 17gm pkt ORAL SCH (20:29)
--- NOTE | 2018-07-25 21:00 | NUR ---
NURSE NOTES:Patient seen by DR. Duran with new orders .
--- NOTE | 2018-07-25 21:05 | Cardiology Progress Note ---
Assessment/Plan Assessment/Plan [id number] Objective Last 24 Hour Vital Signs Date Time Temp Pulse Resp B/P (MAP) Pulse Ox O2 Delivery O2 Flow Rate FiO2 07/25/18 16:00 97.3 67 19 128/80 (96) 95 07/25/18 12:00 97.5 60 18 110/64 (79) 94 07/25/18 09:41 65 140/74 07/25/18 09:00 Room Air 07/25/18 08:00 98.7 65 18 140/74 (96) 96 07/25/18 06:08 97.9 65 18 153/91 (111) 95 07/25/18 00:54 Room Air 07/25/18 00:45 Room Air 07/25/18 00:30 98.1 64 20 159/81 (107) 94 07/24/18 23:35 99.3 68 18 129/87 100 Room Air 07/24/18 21:07 99.3 Intake and Output 07/24/18 07/25/18 19:00 07:00 Intake Total 500 ml Output Total 500 ml Balance 0 ml IV Total 500 ml Output Urine Total 500 ml Laboratory Tests Test 07/24/18 21:47 Urine Color Yellow Urine Appearance Clear Urine pH 6.5 (4.5-8.0) Urine Specific Roper 1.010 (1.005-1.035) Urine Protein 1+ (NEGATIVE) H Urine Glucose (UA) Negative (NEGATIVE) Urine Ketones 1+ (NEGATIVE) H Urine Blood 4+ (NEGATIVE) H Urine Nitrite Negative (NEGATIVE) Urine Bilirubin Negative (NEGATIVE) Urine Urobilinogen 1 MG/DL (0.0-1.0) H Urine Leukocyte Esterase Negative (NEGATIVE) Urine RBC 5-10 /HPF (0 - 2) H Urine WBC 0 /HPF (0 - 2) Urine Squamous Epithelial Cells None /LPF (NONE/OCC) Urine Bacteria Occasional /HPF (NONE) Mario Durbin MD Jul 25, 2018 21:05
--- NOTE | 2018-07-25 21:10 | NUR ---
NURSE NOTES: Patient for open reduction internal fixation consent signed by Adrianna Laurent (daughter).
--- NOTE | 2018-07-25 23:45 | Consultation ---
DATE OF CONSULTATION: 07/25/2018 CHIEF COMPLAINT: Left hip pain. HISTORY OF PRESENT ILLNESS: The patient is a pleasant 77-year-old female who presented with complaints of left hip pain. The patient was brought to the ED yesterday. Orthopedic consultation obtained for further care and recommendation. PAST MEDICAL HISTORY: Per intake chart. PAST SURGICAL HISTORY: Per intake chart. MEDICATIONS: Per intake chart. PHYSICAL EXAMINATION: GENERAL: The patient has underlying Parkinson. She is poor historian. She is resting comfortably on the examining bed. VITAL SIGNS: Afebrile. Stable vital signs. EXTREMITIES: Left hip examination shows pain with internal and external rotation. DIAGNOSTIC DATA: Imaging studies of the left leg showed nondisplaced trochanteric fracture. ASSESSMENT: Left nondisplaced greater trochanteric fracture. DISCUSSION: At this point, given her cognitive issues, we will get an MRI of the left hip to see if this is extended trochanteric area. If it does not, stable injury, does not need surgery. If it does, then consideration for possible open reduction and internal fixation discussed with the family. Celso Duran M.D. DR: Kim JOB#: [id number] CC:
[2018-07-26] VITALS (15 sets, daily range): BP systolic 127–176; BP diastolic 63–92
--- NOTE | 2018-07-26 | NUR ---
NURSE NOTES:Patient NPO after midnight. patient and family verbalized with understanding.
--- NOTE | 2018-07-26 03:30 | History and Physical Report ---
DATE OF ADMISSION: 07/24/2018 REASON FOR ADMISSION: Hip fracture. HISTORY OF PRESENT ILLNESS: This is an unfortunate female who was in the bathroom. The daughter tried to get her up and finally she falls. She has sustained pain and daughter called me. I told her to bring her to the hospital. Nonetheless, she was seen and evaluated in the emergency room and noted to have a fracture. She was admitted for further evaluation. She is seen and evaluated by orthopedic surgeon who is going to do an open reduction and internal fixation of the hip. PAST MEDICAL HISTORY: Past medical history of the patient includes: 1. Dementia. 2. History of scoliosis. 3. History of compression fracture of spine, sounds osteoporosis. 4. Degenerative disk disease. 5. History of hyponatremia. 6. Brain aneurysm, status post procedure. PAST SURGICAL HISTORY: Recent surgery for compression fracture of spine. ALLERGIES: No known drug allergies. MEDICATIONS: Please take a look at the [id number]-hezgt medication list. FAMILY HISTORY: Negative. SOCIAL HISTORY: She lives with family. She has a implementation analyst. PHYSICAL EXAMINATION: VITAL SIGNS: Afebrile. Stable. NECK: No JVD. No carotid bruit. Neck is short. Unable to assess the jugular venous pulse. HEART: S1, S2. Regular. LUNGS: Clear. ABDOMEN: Soft. EXTREMITIES: Negative for clubbing. The patient's right leg is internally rotated. LABORATORY DATA: INR on the patient is 1.0. PTT is 26. UA is negative for leukocyte esterase, 0 wbc. and the patient shows cardiomegaly. IMPRESSION: . PLAN: open reduction and internal fixation of the hip. Laboratory including CBC, CMP, PT, PTT, UA, and chest x-ray. We will look into that. Cardiology to consult on the patient. The patient is at an acceptable risk to undergo surgery. NPO past midnight. Preoperative antibiotic prophylaxis. Postoperative DVT prophylaxis. Jeffrey Noe M.D. DR: LYUDMILA JOB#: [id number] CC:
--- NOTE | 2018-07-26 03:45 | Consultation ---
DATE OF CONSULTATION: 07/25/2018 NOTE: POOR AUDIO CARDIOLOGY CONSULTATION CONSULTING PHYSICIAN: Mario Durbin M.D. REFERRING PHYSICIAN: Jeffrey Noe M.D. REASON FOR REFERRAL: Preop evaluation. HISTORY OF PRESENT ILLNESS: This is an elderly female who is known to me from prior evaluation in May. The patient apparently was moving around with her daughters and fell fracturing her hip initially. She does not have any chest pain or pressure. There is no PND. No orthopnea. No palpitation. No dizziness or lightheadedness. She is very limited in terms of mobility, but she has been able to move from around the house with the help of the family members. pain in the chest. No shortness of breath with those activities. There is no PND. There is no orthopnea. No palpitation. PAST MEDICAL HISTORY: Positive for history of arthritis. No history of diabetes. No history of heart attack, cancer, stroke, hepatitis, tuberculosis, asthma, or emphysema. No ulcers. No kidney problems, liver problems, thyroid problems, or anemia. She does have arthritis. No HIV, AIDS, or blood clots anywhere. She does have a history of brain aneurysm previously. She does have history of hypertension and history of compression fractures. ALLERGIES: No allergies to medications. SOCIAL HISTORY: Does not smoke or drink alcoholic beverages at this time. She lives at home with her daughter. She has a remote history of smoking when she was much younger. REVIEW OF SYSTEMS: GASTROINTESTINAL: There is no nausea, vomiting, diarrhea, or constipation. GENITOURINARY: She denies. PULMONARY: She denies. CONSTITUTIONAL: She denies. NEUROLOGICAL: She does have a . PHYSICAL EXAMINATION: GENERAL: Shows to be elderly female, in no respiratory distress. NECK: Supple. No jugular venous distention. LUNGS: Clear to auscultation and percussion. CARDIAC: S1 is normal. S2 is normal. Regular rate and rhythm. No heaves, thrills, gallops, or rubs are noted. ABDOMEN: Soft, obese. Positive bowel sounds. Nontender. EXTREMITIES: There is no edema. NEUROLOGIC: She is awake, alert, responsive, in no apparent distress. LABORATORY VALUES: An echocardiogram performed in April shows ejection fraction 60 to 65%. No significant valvular dysfunction, mild diastolic relaxation abnormality. EKG showed normal sinus rhythm. Blood tests, white count , hemoglobin 12.5, and a platelet count of 215. Sodium 135, potassium 4.0, chloride 100, bicarbonate 25, BUN of 19, creatinine 0.6, glucose of 124. Calcium is 9. Albumin is 3.9. Coags, INR 1, PTT of 26. Urinalysis is 5 to 10 rbc's, 0 wbc's. X-rays of her chest today showed mild interstitial prominence, suspect chronic possible cardiomegaly. She has had an MRI of her hip that shows positive for nondisplaced intertrochanteric fracture. ASSESSMENT AND PLAN: 1. History of hypertension. 2. History of arthritis. history of fracture of the hip, required surgery. There is no known history of diabetes or hyperlipidemia or prior history of cardiac conditions. Last ejection fraction was normal. Chest x-ray fairly unremarkable. EKG is unremarkable. The patient does not have any signs or symptoms of coronary syndrome or congestive heart failure on examination. She is acceptable risk to undergo procedure. Mario Durbin M.D. DR: IGNACIO JOB#: [id number] CC:
[2018-07-26 06:31] LABS: ANION GAP 10 mmol/L (5-15); BLOOD UREA NITROGEN 16 mg/dL (7-18); CALCIUM 9.4 MG/DL (8.5-10.1); CARBON DIOXIDE 26 MMOL/L (21-32); CHLORIDE 101 MMOL/L (98-107); CREATININE 0.6 MG/DL (0.55-1.30); POTASSIUM 3.5 MMOL/L (3.5-5.1); SODIUM 137 MMOL/L (136-145)
[2018-07-26 06:34] LABS: BASOPHILS % (AUTO) 1.1 % (0.0-2.0); EOSINOPHILS % (AUTO) 7.4 % (0.0-3.0); HEMATOCRIT 37.8 % (37.0-47.0); HEMOGLOBIN 12.7 G/DL (12.0-16.0); MEAN CORPUSCULAR VOLUME 93 FL (80-99); MONOCYTES % (AUTO) 6.3 % (1.0-10.0); NEUTROPHILS % (AUTO) 65.3 % (45.0-75.0); PLATELET COUNT 254 K/UL (150-450); RED BLOOD COUNT 4.05 M/UL (4.20-5.40); RED CELL DISTRIBUTION WIDTH 12.6 % (11.6-14.8)
[2018-07-26] MEDS: Levodopa/Carbidopa 10/100 tab ORAL SCH ×5 (07:00→18:47)
--- NOTE | 2018-07-26 07:01 | NUR ---
HAND-OFF: Report given to Sena Worthington
[2018-07-26] MEDS: Docusate 100mg cap ORAL SCH ×4 (07:10→18:00)
[2018-07-26] MEDS: clonazePAM 0.5mg tab ORAL SCH (07:10)
[2018-07-26] MEDS: Heparin 5000 units/ml inj SUBQ SCH ×2 (07:11→21:28)
--- NOTE | 2018-07-26 07:45 | NUR ---
NURSE NOTES:bedside rounds,report given by delvin leon.patient awake,wolof speaking only,room air,iv site patent.npo for surgery.consented by daughter.
--- NOTE | 2018-07-26 10:25 | GI Progress Note ---
Assessment/Plan Problems: (1) Nausea ICD Codes: R11.0 - Nausea SNOMED: 874748401 (2) General weakness ICD Codes: R53.1 - Weakness SNOMED: 37368248 (3) Constipation ICD Codes: K59.00 - Constipation, unspecified SNOMED: 43935194 (4) Falls frequently ICD Codes: R29.6 - Repeated falls SNOMED: 516374903 (5) Parkinsons disease ICD Codes: G20 - Parkinson's disease SNOMED: 51021205 (6) Parkinson disease ICD Codes: G20 - Parkinson's disease SNOMED: 07616355 Status: unchanged Status Narrative Discussed with Dr. Gould. Assessment/Plan Patient scheduled for ORIF of the left hip today no plans for GI procedures at this time, symptomatic treatment Diet per surgery zofran prn, reglan for persistent vomiting ppi bowel regime, colace + miralax pain mgmt follow labs, trend LFTs outpatient GI procedures The patient was seen and examined at bedside and all new and available data was reviewed in the patients chart. I agree with the above findings, impression and plan. (Patient seen earlier today. Signature stamp does not reflect patient encounter time.). - Henry Gould MD Subjective Gastrointestinal/Abdominal: Reports: no symptoms Objective Last 24 Hour Vital Signs Date Time Temp Pulse Resp B/P (MAP) Pulse Ox O2 Delivery O2 Flow Rate FiO2 07/26/18 08:56 70 164/92 07/26/18 08:00 98.6 70 16 164/92 (116) 95 07/26/18 07:45 Room Air 07/26/18 04:00 97.6 72 20 140/77 (98) 97 07/26/18 00:00 97.7 69 20 128/77 (94) 98 07/25/18 21:00 Room Air 07/25/18 20:15 98.0 75 18 135/75 (95) 98 07/25/18 20:00 98.7 69 16 168/86 (113) 97 07/25/18 16:00 97.3 67 19 128/80 (96) 95 07/25/18 12:00 97.5 60 18 110/64 (79) 94 Intake and Output 07/25/18 07/26/18 18:59 06:59 Intake Total 400 ml 320 ml Output Total 400 ml 375 ml Balance 0 ml -55 ml Intake Oral 400 ml 320 ml Output Urine Total 400 ml 375 ml # Bowel Movements 1 Laboratory Tests Test 07/26/18 05:35 White Blood Count 8.0 K/UL (4.8-10.8) Red Blood Count 4.05 M/UL (4.20-5.40) L Hemoglobin 12.7 G/DL (12.0-16.0) Hematocrit 37.8 % (37.0-47.0) Mean Corpuscular Volume 93 FL (80-99) Mean Corpuscular Hemoglobin 31.5 PG (27.0-31.0) H Mean Corpuscular Hemoglobin Concent 33.8 G/DL (32.0-36.0) Red Cell Distribution Width 12.6 % (11.6-14.8) Platelet Count 254 K/UL (150-450) Mean Platelet Volume 5.7 FL (6.5-10.1) L Neutrophils (%) (Auto) 65.3 % (45.0-75.0) Lymphocytes (%) (Auto) 20.0 % (20.0-45.0) Monocytes (%) (Auto) 6.3 % (1.0-10.0) Eosinophils (%) (Auto) 7.4 % (0.0-3.0) H Basophils (%) (Auto) 1.1 % (0.0-2.0) Sodium Level 137 MMOL/L (136-145) Potassium Level 3.5 MMOL/L (3.5-5.1) Chloride Level 101 MMOL/L (98-107) Carbon Dioxide Level 26 MMOL/L (21-32) Anion Gap 10 mmol/L (5-15) Blood Urea Nitrogen 16 mg/dL (7-18) Creatinine 0.6 MG/DL (0.55-1.30) Estimat Glomerular Filtration Rate mL/min (>60) Glucose Level 111 MG/DL (74-106) H Calcium Level 9.4 MG/DL (8.5-10.1) Height (Feet): 5 Height (Inches): 2.00 Weight (Pounds): 106 General Appearance: WD/WN, no apparent distress, alert Cardiovascular: normal rate Respiratory/Chest: normal breath sounds, no respiratory distress Abdominal Exam: normal bowel sounds, non tender, soft Extremities: normal range of motion, non-tender Carranza,Tamiko-Cong DIRECTOR MEDICA[employer] Jul 26, 2018 10:25
[2018-07-26] MEDS: HydrALAZINE 50mg tab ORAL SCH (13:26)
--- NOTE | 2018-07-26 15:30 | NUR ---
NURSE NOTES:picked up by renetta (transporter)by bed for left hip surgery,bedside handoff done by zana petty.patient stable,on pickle processor.
[2018-07-26] MEDS ORDERED: Bacitracin 50000 Units Vial ONE (17:00)
[2018-07-26] MEDS ORDERED: Ketorolac 30mg Inj ONE (17:00)
[2018-07-26] MEDS ORDERED: Kenalog-40 1ml Vial ONE (17:00)
[2018-07-26] MEDS ORDERED: Duramorph PF 5mg/10ml amp ONE ×2 (17:00→17:07)
[2018-07-26] MEDS ORDERED: Bupivacaine 0.5% Inj 30 ml vial INJ ONE (17:08)
[2018-07-26] MEDS ORDERED: fentaNYL 100 mcg/2 mL IV ONE (17:22)
--- NOTE | 2018-07-26 17:27 | Pre-Procedure Note/Attestation ---
Pre-Procedure Note/Attestation Complete Prior to Procedure Planned Procedure: left Procedure Narrative: hip orif Indications for Procedure Pre-Operative Diagnosis: left hip fracture Attestation I attest that I discussed the nature of the procedure; its benefits; risks and complications; and alternatives (and the risks and benefits of such alternatives ), prior to the procedure, with the patient (or the patient's legal business development representative). I attest that, if there was a reasonable possibility of needing a blood transfusion, the patient (or the patient's legal business development representative) was given the [facility] standardized written summary, pursuant to the David Ingenio Blood Safety Act ([place] Health and Safety Code # 1645, as amended). I attest that I re-evaluated the patient just prior to the surgery and that there has been no change in the patient's H&P, except as documented below: Celso Duran MD Jul 26, 2018 17:27
--- NOTE | 2018-07-26 17:28 | Operative Note - PDOC ---
Operative Note Operative Note Pre-op Diagnosis: left hip fracture Procedure: see op report Post-op Diagnosis: same as pre-op plus Operative Findings: consistent w/pre-op dx studies Anesthesia: regional Specimen: none Complications: none Condition: stable Estimated Blood Loss: none Implant(s) used?: Yes Celso Duran MD Jul 26, 2018 17:28
[2018-07-26] MEDS ORDERED: Milk of Magnesia 30ml Ud ORAL PRN (17:30)
[2018-07-26] MEDS ORDERED: Propofol 200mg/20ml IV ONE (17:30)
[2018-07-26] MEDS ORDERED: Sterile Water Irrig 1000ml IRRIG ONE (17:30)
[2018-07-26] MEDS ORDERED: Morphine Sulfate 2mg/ml Inj(IV/IM USE ONLY) IVP PRN ×2 (17:30)
[2018-07-26] MEDS ORDERED: NS Irrig 2000ml IRRIG ONE ×2 (17:47→18:27)
[2018-07-26] MEDS ORDERED: Bacitracin 50000 Units Vial IRRIG ONE ×2 (17:47→18:28)
[2018-07-26] MEDS ORDERED: Sodium Chloride 10ml vial INJ ONE (18:12)
[2018-07-26] MEDS ORDERED: ePHEDrine 50mg/ml Inj ONE (18:12)
--- NOTE | 2018-07-26 18:27 | Anethesia Preoperative Eval ---
Anesthesia Pre-op PMH/ROS General Date of Evaluation: Jul 26, 2018 Time of Evaluation: 16:20 Anesthesiologist: Dre ASA Score: ASA 4 Mallampati Score Class I : Soft palate, uvula, fauces, pillars visible Class II: Soft palate, uvula, fauces visible Class III: Soft palate, base of uvula visible Class IV: Only hard plate visible Mallampati Classification: Class III Surgeon: Roger Diagnosis: L femoral neck Fx Surgical Procedure: ORIF of L femoral Fx Anesthesia History: none Family History: no anesthesia problems Allergies: Coded Allergies: Dairy (Verified Allergy, Severe, 05/04/18) diarrhea Patient NPO?: Yes NPO Date: Jul 26, 2018 NPO Time: 0000 Past Medical History Cardiovascular: Reports: HTN; Denies: CAD, NE, valve dz, arrhythmia, other Pulmonary: Denies: asthma, COPD, CRIST[place], other Gastrointestinal/Genitourinary: Reports: GERD; Denies: CRI, ESRD, other Neurologic/Psychiatric: Reports: dementia, other - Parkinsons, s/p Brain aneurysm clipping; Denies: CVA, depression/anxiety, TIA Endocrine: Reports: hypothyroidism; Denies: DM, steroids, other HEENT: Denies: cataract (L), cataract (R), glaucoma, [place] (L), [place] (R), other Hematology/Immune: Denies: anemia, DVT, bleeding disorder, other Musculoskeletal/Integumentary: Reports: DJD, other; Denies: OA, RA, DDD, edema PMH Narrative: as above PSxH Narrative: see H&P Anesthesia Pre-op Phys. Exam Physician Exam Last Vital Signs Date Time Temp Pulse Resp B/P (MAP) Pulse Ox O2 Delivery O2 Flow Rate FiO2 07/26/18 13:26 174/91 07/26/18 13:25 98.2 63 18 96 07/26/18 07:45 Room Air Constitutional: NAD Neurologic: other - unable to obtaine Cardiovascular: RRR Respiratory: CTA Gastrointestinal: S/NT/ND Airway Exam Mallampati Score: Class III MO: limited Neck: stiff ROM: limited Teeth: missing Dentures: no upper, no lower Anesthesia Pre-op A/P Labs Hematology Test 07/26/18 05:35 White Blood Count 8.0 K/UL (4.8-10.8) Red Blood Count 4.05 M/UL (4.20-5.40) L Hemoglobin 12.7 G/DL (12.0-16.0) Hematocrit 37.8 % (37.0-47.0) Mean Corpuscular Volume 93 FL (80-99) Mean Corpuscular Hemoglobin 31.5 PG (27.0-31.0) H Mean Corpuscular Hemoglobin Concent 33.8 G/DL (32.0-36.0) Red Cell Distribution Width 12.6 % (11.6-14.8) Platelet Count 254 K/UL (150-450) Mean Platelet Volume 5.7 FL (6.5-10.1) L Neutrophils (%) (Auto) 65.3 % (45.0-75.0) Lymphocytes (%) (Auto) 20.0 % (20.0-45.0) Monocytes (%) (Auto) 6.3 % (1.0-10.0) Eosinophils (%) (Auto) 7.4 % (0.0-3.0) H Basophils (%) (Auto) 1.1 % (0.0-2.0) Chemistry Test 07/26/18 05:35 Sodium Level 137 MMOL/L (136-145) Potassium Level 3.5 MMOL/L (3.5-5.1) Chloride Level 101 MMOL/L (98-107) Carbon Dioxide Level 26 MMOL/L (21-32) Anion Gap 10 mmol/L (5-15) Blood Urea Nitrogen 16 mg/dL (7-18) Creatinine 0.6 MG/DL (0.55-1.30) Estimat Glomerular Filtration Rate mL/min (>60) Glucose Level 111 MG/DL (74-106) H Calcium Level 9.4 MG/DL (8.5-10.1) Risk Assessment & Plan Assessment: ASA 4 Plan: SAB vs GA Status Change Before Surgery: No Pre-Antibiotics Drug: Ancef 1 gr. Given Within 1 Hr of Incision: Yes Time Given: 17:48 Suhas Erickson MD Jul 26, 2018 18:27
--- NOTE | 2018-07-26 18:29 | Immediate Post-Op Evaluation ---
Immediate Post-Op Evalulation Immediate Post-Op Evalulation Procedure: ORIF of L femoral neck Fx Date of Evaluation: Jul 26, 2018 Time of Evaluation: 18:28 IV Fluids: 500 Blood Products: none Estimated Blood Loss: min Urinary Output: 100 Blood Pressure Systolic: 132 Blood Pressure Diastolic: 76 Pulse Rate: 68 Respiratory Rate: 20 O2 Sat by Pulse Oximetry: 99 Temperature (Fahrenheit): 97.5 Pain Score (1-10): 1 Nausea: No Vomiting: No Patient Status: reacts, patent, none Hydration Status: adequate Suhas Erickson MD Jul 26, 2018 18:29
[2018-07-26] MEDS: D5 1/2NS w/KCl 20mEq 1,000 ML IV SCH (18:47)
--- NOTE | 2018-07-26 19:05 | NUR ---
NURSE NOTES: Received report from ANJELICA Shetty off going nurse.
--- NOTE | 2018-07-26 19:10 | NUR ---
NURSE NOTES: Just received pt from PACU, s/p left hip ORIF. pt is awake, drowsy, oriented to self. two incision sites w/ dressing to left hip noted intact/dry, SCDs on. IVF infusing well to LFA intact/patent. review current and noted post-op orders. pt's VSS.
--- NOTE | 2018-07-26 19:15 | NUR ---
HAND-OFF: Report given to .ED DEJESUS.PATIENT STILL IN PACU.
[2018-07-26] MEDS: Miralax 17gm pkt ORAL SCH (21:23)
--- NOTE | 2018-07-26 22:00 | Operative Note - Dictated ---
DATE OF OPERATION: 07/26/2018 PREOPERATIVE DIAGNOSIS: Left two-part intertrochanteric hip fracture. POSTOPERATIVE DIAGNOSIS: Left two-part intertrochanteric hip fracture. PROCEDURE: Open reduction and internal fixation left intertrochanteric hip fracture SURGEON: Celso Duran M.D. ANESTHESIA: Spinal. INDICATION FOR PROCEDURE: The patient is a pleasant 77-year-old female diagnosed with with extension into intertrochanteric hip fracture indicative for operative fixation. Risks, limitations, expectations, and complication of procedure was discussed in detail with power of state's attorney. All questions addressed. DESCRIPTION OF PROCEDURE: After informed consent was obtained, the patient was brought to the operative room and placed under spinal anesthesia. Left hip was prepped and draped in a sterile manner. Lateral skin incision was then made. Guidewire was placed in the proximal aspect of the femur. A short gamma nail was selected and placed, 85 mm cannulated screw was then placed along the neck and head junction. A 32.5 distal locking screw was placed. The skin was closed with #1 Vicryl suture, 2-0 Vicryl, [place], compression dressing was applied. The patient was awoken and taken to recovery room with stable signs. ESTIMATED BLOOD LOSS: Minimal. COMPLICATIONS: None. SPECIMENS: None. IMPLANTS: Include Devon short gamma nail, 85 mm cannulated screws, 32.5 distal locking screw. Celso Duran M.D. DR: Kim JOB#: [id number] CC: JENNY
[2018-07-27] VITALS: BP 130/69
[2018-07-27] MEDS: ceFAZolin sod 2 GM in D5W 110 ML IV SCH ×2 (01:10→10:00)
[2018-07-27] MEDS: D5 1/2NS w/KCl 20mEq 1,000 ML IV SCH ×2 (01:11→12:58)
[2018-07-27 04:00] VITALS: BP 120/67
[2018-07-27 06:26] LABS: BASOPHILS % (AUTO) 0.6 % (0.0-2.0); EOSINOPHILS % (AUTO) 0.3 % (0.0-3.0); MEAN CORPUSCULAR VOLUME 94 FL (80-99); MONOCYTES % (AUTO) 7.1 % (1.0-10.0); NEUTROPHILS % (AUTO) 80.1 % (45.0-75.0); PLATELET COUNT 205 K/UL (150-450); RED BLOOD COUNT 3.52 M/UL (4.20-5.40)
[2018-07-27] MEDS: Levodopa/Carbidopa 10/100 tab ORAL SCH ×5 (06:34→18:44)
[2018-07-27 06:45] LABS: ALANINE AMINOTRANSFERASE 23 U/L (12-78); ALBUMIN 3.1 G/DL (3.4-5.0); ALBUMIN/GLOBULIN RATIO 0.9 (1.0-2.7); ALKALINE PHOSPHATASE 90 U/L (46-116); ANION GAP 11 mmol/L (5-15); ASPARTATE AMINO TRANSFERASE 14 U/L (15-37); BILIRUBIN,TOTAL 0.5 MG/DL (0.2-1.0); BLOOD UREA NITROGEN 17 mg/dL (7-18); CARBON DIOXIDE 25 MMOL/L (21-32); CHLORIDE 102 MMOL/L (98-107); CREATININE 0.7 MG/DL (0.55-1.30); POTASSIUM 3.3 MMOL/L (3.5-5.1); SODIUM 138 MMOL/L (136-145)
--- NOTE | 2018-07-27 07:20 | NUR ---
Hand-off report given to ANJELICA Herrera.
--- NOTE | 2018-07-27 07:20 | NUR ---
HAND-OFF: Report given to ANJELICA Herrera.
--- NOTE | 2018-07-27 07:30 | NUR ---
NURSE NOTES: Patient is in bed asleep. Stable. No facial grimacing or signs of discomfort noted. Patient is in bed in locked and lowest position. All safety measures provided. Call light within reach. Will continue to monitor.
[2018-07-27 08:00] VITALS: BP 127/68
[2018-07-27] MEDS: clonazePAM 0.5mg tab ORAL SCH (08:59)
[2018-07-27] MEDS: Docusate 100mg cap ORAL SCH ×4 (08:59→17:53)
[2018-07-27] MEDS: celeBREX 200mg Cap **SURGERY PATIENTS ONLY ORAL SCH (09:00)
[2018-07-27] MEDS: Heparin 5000 units/ml inj SUBQ SCH ×2 (09:01→20:53)
--- NOTE | 2018-07-27 09:40 | NUR ---
PT EVALUATION NOTE Patient seen for initial evaluation, see complete evaluation for details. Patient presents with decreased ability to complete bed mobility and transfers s/p ORIF L hip fracture. Patient requires max assist for bed mobility and transfer activities. Patient will benefit from skilled inpatient PT intervention to address strength, balance, safety and functional mobility. Recommend discharge to ARU vs SNF for continued rehab to improve level of function once medically cleared by MD. DME needs to be determined based on patient's progress and discharge disposition. Addendum: 07/27/18 at 1336 by VANNA RUBIO PT Amended: Links added.
--- NOTE | 2018-07-27 09:44 | GI Progress Note ---
Assessment/Plan Problems: (1) Nausea ICD Codes: R11.0 - Nausea SNOMED: 497270556 (2) General weakness ICD Codes: R53.1 - Weakness SNOMED: 74656749 (3) Constipation ICD Codes: K59.00 - Constipation, unspecified SNOMED: 03855116 (4) Falls frequently ICD Codes: R29.6 - Repeated falls SNOMED: 928904215 (5) Parkinsons disease ICD Codes: G20 - Parkinson's disease SNOMED: 99424642 (6) Parkinson disease ICD Codes: G20 - Parkinson's disease SNOMED: 11483287 Status: stable Status Narrative Discussed with Dr. Gould. Assessment/Plan s/p ORIF of L femoral neck Fx elevated alk phos, now normal. no plans for GI procedures at this time, symptomatic treatment Diet per surgery zofran prn, reglan for persistent vomiting ppi bowel regime, colace + miralax pain mgmt follow labs outpatient GI procedures The patient was seen and examined at bedside and all new and available data was reviewed in the patients chart. I agree with the above findings, impression and plan. (Patient seen earlier today. Signature stamp does not reflect patient encounter time.). - Henry Gould MD Subjective Gastrointestinal/Abdominal: Reports: no symptoms Objective Last 24 Hour Vital Signs Date Time Temp Pulse Resp B/P (MAP) Pulse Ox O2 Delivery O2 Flow Rate FiO2 07/27/18 09:02 75 127/68 07/27/18 04:00 98.4 74 17 120/67 (84) 98 07/27/18 00:00 97.8 82 18 130/69 (89) 97 07/26/18 21:00 Room Air 07/26/18 21:00 97.7 75 18 127/63 (84) 97 07/26/18 20:00 97.4 80 19 133/66 (88) 97 07/26/18 19:30 97.5 81 18 141/82 (101) 96 07/26/18 19:05 98.0 80 18 156/87 100 Nasal Cannula 3 07/26/18 19:00 78 17 156/92 100 Nasal Cannula 3 07/26/18 18:50 81 18 155/91 100 Nasal Cannula 3 07/26/18 18:40 80 17 161/89 100 Nasal Cannula 3 07/26/18 18:30 80 15 163/82 100 Simple Mask 6 07/26/18 18:29 68 20 99 07/26/18 18:25 77 12 151/79 100 Simple Mask 6 07/26/18 18:22 98.5 76 14 144/86 100 Simple Mask 6 07/26/18 13:26 174/91 07/26/18 13:25 98.2 63 18 174/91 (118) 96 07/26/18 12:00 98.2 63 18 176/91 (119) 96 Intake and Output 07/26/18 07/27/18 18:59 06:59 Intake Total 550 ml 1155 ml Output Total 315 ml 805 ml Balance 235 ml 350 ml Intake Oral 120 ml IV Total 550 ml 1035 ml Output Urine Total 300 ml 805 ml Estimated Blood Loss 15 ml Laboratory Tests Test 07/27/18 05:00 White Blood Count 8.0 K/UL (4.8-10.8) Red Blood Count 3.52 M/UL (4.20-5.40) L Hemoglobin 11.0 G/DL (12.0-16.0) L Hematocrit 33.0 % (37.0-47.0) L Mean Corpuscular Volume 94 FL (80-99) Mean Corpuscular Hemoglobin 31.2 PG (27.0-31.0) H Mean Corpuscular Hemoglobin Concent 33.4 G/DL (32.0-36.0) Red Cell Distribution Width 13.0 % (11.6-14.8) Platelet Count 205 K/UL (150-450) Mean Platelet Volume 5.5 FL (6.5-10.1) L Neutrophils (%) (Auto) 80.1 % (45.0-75.0) H Lymphocytes (%) (Auto) 12.0 % (20.0-45.0) L Monocytes (%) (Auto) 7.1 % (1.0-10.0) Eosinophils (%) (Auto) 0.3 % (0.0-3.0) Basophils (%) (Auto) 0.6 % (0.0-2.0) Sodium Level 138 MMOL/L (136-145) Potassium Level 3.3 MMOL/L (3.5-5.1) L Chloride Level 102 MMOL/L (98-107) Carbon Dioxide Level 25 MMOL/L (21-32) Anion Gap 11 mmol/L (5-15) Blood Urea Nitrogen 17 mg/dL (7-18) Creatinine 0.7 MG/DL (0.55-1.30) Estimat Glomerular Filtration Rate mL/min (>60) Glucose Level 151 MG/DL (74-106) H Calcium Level 9.0 MG/DL (8.5-10.1) Total Bilirubin 0.5 MG/DL (0.2-1.0) Aspartate Amino Transf (AST/SGOT) 14 U/L (15-37) L Alanine Aminotransferase (ALT/SGPT) 23 U/L (12-78) Alkaline Phosphatase 90 U/L (46-116) Total Protein 6.7 G/DL (6.4-8.2) Albumin 3.1 G/DL (3.4-5.0) L Globulin 3.6 g/dL Albumin/Globulin Ratio 0.9 (1.0-2.7) L Height (Feet): 5 Height (Inches): 2.00 Weight (Pounds): 106 General Appearance: WD/WN, no apparent distress, alert Cardiovascular: normal rate Respiratory/Chest: normal breath sounds, no respiratory distress Abdominal Exam: normal bowel sounds, non tender, soft Extremities: normal range of motion, non-tender Michael Carranza NP Jul 27, 2018 09:44
--- NOTE | 2018-07-27 09:59 | Diagnostic Imaging Report ---
INDICATION: Pain, intraoperative TECHNIQUE: Intraoperative imaging Fluoroscopy time: 26.6 seconds Total dose: 0.61335 mGym2 Total number of images: 2 COMPARISON: 07/24/2018 FINDINGS: Intraoperative images demonstrate reduction of previously demonstrated left hip intertrochanteric fracture with medullary ricardo and compression screw. IMPRESSION: Intraoperative imaging, as described
[2018-07-27] MEDS: HYDROcodone/Acetamin 5/325 tab ORAL PRN ×2 (10:01→22:07)
--- NOTE | 2018-07-27 10:39 | NUR ---
Social Work This Sw received a consult to assist with a home safety evaluation. This SW met with patient who is alert, oriented to name, but showing some confusion (history of dementia). This Sw spoke with daughter, Adrianna Laurent ([phone]) who explains she is a Speech Pathologist for the [employer] district, planning to be off from work for the next eight weeks. Daughter states she does not want SNF placement, prefers to take patient home with home care (agreeable with Dr. Noe recommendations regarding which agency). Daughter explains she was standing next to patient in the bathroom, when patient had lost her balance and fell. Daughter stating patient has never fallen prior, while there is someone assisting her at all times (daughter, son in law, has a caregiver 40 hours per week). Daughter will provide transportation upon discharge, along with patient already has a wheelchair, walker and a ramp to get into their home (patient lives with daughter). No other needs or concerns are present at this time. Discharge Planning: home with 24 hour care from daughter/family and caregiver, with home care to follow.
[2018-07-27 12:00] VITALS: BP 122/83
[2018-07-27] MEDS: HydrALAZINE 50mg tab ORAL SCH (12:58)
--- NOTE | 2018-07-27 14:54 | 48 Hour Post Anesthesia Eval ---
Post Anesthesia Evaluation Procedure: ORIF of L femoral neck Fx Date of Evaluation: Jul 27, 2018 Airway: patent Nausea: No Vomiting: No Hydration Status: adequate Cardiopulmonary Status: at baseline Mental Status/LOC: patient returned to baseline Post-Anesthesia Complications: 0 Follow-up care needed: N/A - further care as per primary team Arely Carr MD Jul 27, 2018 14:54
[2018-07-27 16:00] VITALS: BP 129/79
--- NOTE | 2018-07-27 16:33 | NUR ---
CASE MANAGEMENT:REVIEW 07/27/18 SI: POD #1..S/P LT HIP ORIF 98.7 68 18 122/83 98% ON RA H/H-11.0/33.0 K-3.3 IS: IV ANCEF Q8HRS IVF@75/HR CELEBREX PO QD PROTONIX PO QD NORCO PO Q6HRS PRN : MED/SURG STATUS 3 EAST DCP: HOME WITH [facility] PER MD'S ORDER
[2018-07-27] MEDS ORDERED: D5 1/2NS 1000ml IV ONE (17:48)
[2018-07-27] MEDS ORDERED: Tubing IV Secondary IV ONE (17:48)
--- NOTE | 2018-07-27 19:00 | Progress Note ---
DATE: 07/27/2018 SUBJECTIVE: This is an unfortunate female, status post fall, trochanteric fracture. Status post open reduction and internal fixation. She denies any fever, chills, nausea, vomiting, or diarrhea. PHYSICAL EXAMINATION: VITAL SIGNS: Stable. GENERAL: No acute distress. NECK: No JVD. No carotid bruit. HEART: S1 and S2. LUNGS: Clear. ABDOMEN: Soft. EXTREMITIES: No clubbing or cyanosis. IMPRESION: Status post surgery for hip pain, doing well, at baseline she is wheelchair bound. PLAN: To send her home if family does not want to send her to nursing facility. DVT prophylaxis with the Eliquis 2.5 mg upon discharge, Jeffrey Noe M.D. DR: Ravin JOB#: [id number] CC:
--- NOTE | 2018-07-27 19:30 | NUR ---
HAND-OFF: Report given to Shamar DEJESUS. Patient is stable.
--- NOTE | 2018-07-27 19:46 | Cardiology Progress Note ---
Assessment/Plan Assessment/Plan 1. History of hypertension. 2. History of arthritis. 3. hip fx 4. Parkinson tolerated procedure k supplement dvt ppx bp i ok labs noted mild anemia Subjective Cardiovascular: Denies: chest pain, lightheadedness Respiratory: Denies: shortness of breath Gastrointestinal/Abdominal: Denies: abdominal pain Genitourinary: Denies: burning Objective Last 24 Hour Vital Signs Date Time Temp Pulse Resp B/P (MAP) Pulse Ox O2 Delivery O2 Flow Rate FiO2 07/27/18 16:00 97.9 62 18 129/79 (96) 97 07/27/18 12:58 108/52 07/27/18 12:00 98.7 68 18 122/83 (96) 98 07/27/18 09:02 75 127/68 07/27/18 09:00 Room Air 07/27/18 08:00 98.1 75 20 127/68 (87) 96 07/27/18 04:00 98.4 74 17 120/67 (84) 98 07/27/18 00:00 97.8 82 18 130/69 (89) 97 07/26/18 21:00 Room Air 07/26/18 21:00 97.7 75 18 127/63 (84) 97 07/26/18 20:00 97.4 80 19 133/66 (88) 97 General Appearance: no apparent distress, alert Neck: supple Cardiovascular: normal rate Respiratory/Chest: lungs clear Abdomen: normal bowel sounds, non tender, soft Extremities: no swelling Intake and Output 07/26/18 07/27/18 19:00 07:00 Intake Total 550 ml 1155 ml Output Total 315 ml 805 ml Balance 235 ml 350 ml Intake Oral 120 ml IV Total 550 ml 1035 ml Output Urine Total 300 ml 805 ml Estimated Blood Loss 15 ml Laboratory Tests Test 07/27/18 05:00 White Blood Count 8.0 K/UL (4.8-10.8) Red Blood Count 3.52 M/UL (4.20-5.40) L Hemoglobin 11.0 G/DL (12.0-16.0) L Hematocrit 33.0 % (37.0-47.0) L Mean Corpuscular Volume 94 FL (80-99) Mean Corpuscular Hemoglobin 31.2 PG (27.0-31.0) H Mean Corpuscular Hemoglobin Concent 33.4 G/DL (32.0-36.0) Red Cell Distribution Width 13.0 % (11.6-14.8) Platelet Count 205 K/UL (150-450) Mean Platelet Volume 5.5 FL (6.5-10.1) L Neutrophils (%) (Auto) 80.1 % (45.0-75.0) H Lymphocytes (%) (Auto) 12.0 % (20.0-45.0) L Monocytes (%) (Auto) 7.1 % (1.0-10.0) Eosinophils (%) (Auto) 0.3 % (0.0-3.0) Basophils (%) (Auto) 0.6 % (0.0-2.0) Sodium Level 138 MMOL/L (136-145) Potassium Level 3.3 MMOL/L (3.5-5.1) L Chloride Level 102 MMOL/L (98-107) Carbon Dioxide Level 25 MMOL/L (21-32) Anion Gap 11 mmol/L (5-15) Blood Urea Nitrogen 17 mg/dL (7-18) Creatinine 0.7 MG/DL (0.55-1.30) Estimat Glomerular Filtration Rate mL/min (>60) Glucose Level 151 MG/DL (74-106) H Calcium Level 9.0 MG/DL (8.5-10.1) Total Bilirubin 0.5 MG/DL (0.2-1.0) Aspartate Amino Transf (AST/SGOT) 14 U/L (15-37) L Alanine Aminotransferase (ALT/SGPT) 23 U/L (12-78) Alkaline Phosphatase 90 U/L (46-116) Total Protein 6.7 G/DL (6.4-8.2) Albumin 3.1 G/DL (3.4-5.0) L Globulin 3.6 g/dL Albumin/Globulin Ratio 0.9 (1.0-2.7) L Mario Durbin MD Jul 27, 2018 19:46
[2018-07-27 20:00] VITALS: BP 122/63
--- NOTE | 2018-07-27 20:00 | NUR ---
NURSE NOTES: Received a report from ANJELICA Herrera. Pt is awake and verbally responsive in [place]. Breathing is even and non labored. No acute distress noted. Lung sound is clear. Spo2 95% in RA. Encourage to deep breathing and self-expectoration. Reinforce to use incentive spirometry while awake. ORIF site is clear, covered with gauze and tegarderm. No bleeding signs. No pain noted at this time. Both lower extremities SCDs are on. Skin intact. Jon catheter in patent with clear yellowish urine. Left arm IV site is clear without infiltration. Leave call light within reach. Bed is locked and lowest position. Will continue to monitor.
[2018-07-27] MEDS: Miralax 17gm pkt ORAL SCH (20:53)
[2018-07-28] VITALS: BP 153/92
[2018-07-28 04:00] VITALS: BP 116/63
--- NOTE | 2018-07-28 06:00 | NUR ---
NURSE NOTES: Dressing change done to L hip surgical site. Applied 4x4 gauze and tegaderm, C/D/I. Pt tolerated procedure well.
[2018-07-28 06:14] LABS: BASOPHILS % (AUTO) 1.3 % (0.0-2.0); EOSINOPHILS % (AUTO) 7.5 % (0.0-3.0); HEMATOCRIT 31.7 % (37.0-47.0); HEMOGLOBIN 10.3 G/DL (12.0-16.0); LYMPHOCYTES % (AUTO) 26.7 % (20.0-45.0); MEAN CORPUSCULAR VOLUME 95 FL (80-99); NEUTROPHILS % (AUTO) 57.4 % (45.0-75.0); PLATELET COUNT 198 K/UL (150-450); RED BLOOD COUNT 3.35 M/UL (4.20-5.40); RED CELL DISTRIBUTION WIDTH 12.9 % (11.6-14.8); WHITE BLOOD COUNT 7.5 K/UL (4.8-10.8)
[2018-07-28 06:27] LABS: ANION GAP 8 mmol/L (5-15); BLOOD UREA NITROGEN 23 mg/dL (7-18); CALCIUM 8.8 MG/DL (8.5-10.1); CARBON DIOXIDE 27 MMOL/L (21-32); CHLORIDE 101 MMOL/L (98-107); CREATININE 0.7 MG/DL (0.55-1.30); POTASSIUM 3.9 MMOL/L (3.5-5.1); SODIUM 136 MMOL/L (136-145)
[2018-07-28] MEDS: Levodopa/Carbidopa 10/100 tab ORAL SCH ×5 (06:28→19:30)
--- NOTE | 2018-07-28 07:15 | NUR ---
NURSE NOTES: Report received from Shamar RN, rounds made. Patient sleeping in semi-fowlers position in bed. No distress on RA. Left hip dressing CDI. Bilateral SCDs on, skin warm. LFA heplock intact, site asymptomatic. FC patent, draining y/cl urine to gravity. Call light in reach, bed in lowest position, will continue to monitor.
--- NOTE | 2018-07-28 07:34 | NUR ---
HAND-OFF: Report given to ANJELICA Vega. Pt in stable condition.
[2018-07-28 08:00] VITALS: BP 107/55
[2018-07-28] MEDS: Heparin 5000 units/ml inj SUBQ SCH ×2 (09:38→22:19)
[2018-07-28] MEDS: Docusate 100mg cap ORAL SCH ×3 (09:41→19:30)
[2018-07-28] MEDS: celeBREX 200mg Cap **SURGERY PATIENTS ONLY ORAL SCH (09:41)
[2018-07-28] MEDS: clonazePAM 0.5mg tab ORAL SCH (09:42)
--- NOTE | 2018-07-28 10:08 | GI Progress Note ---
Assessment/Plan Problems: (1) Nausea ICD Codes: R11.0 - Nausea SNOMED: 498330253 (2) General weakness ICD Codes: R53.1 - Weakness SNOMED: 11104582 (3) Constipation ICD Codes: K59.00 - Constipation, unspecified SNOMED: 99078531 (4) Falls frequently ICD Codes: R29.6 - Repeated falls SNOMED: 428712601 (5) Parkinsons disease ICD Codes: G20 - Parkinson's disease SNOMED: 73882096 (6) Parkinson disease ICD Codes: G20 - Parkinson's disease SNOMED: 92905107 Status: stable Status Narrative Discussed with Dr. Gould. Assessment/Plan s/p ORIF of L femoral neck Fx elevated alk phos, now normal. no plans for GI procedures at this time, symptomatic treatment Diet per surgery zofran prn, reglan for persistent vomiting ppi bowel regime, colace + miralax pain mgmt follow labs outpatient GI procedures The patient was seen and examined at bedside and all new and available data was reviewed in the patients chart. I agree with the above findings, impression and plan. (Patient seen earlier today. Signature stamp does not reflect patient encounter time.). - Henry Gould MD Subjective Gastrointestinal/Abdominal: Reports: no symptoms Objective Last 24 Hour Vital Signs Date Time Temp Pulse Resp B/P (MAP) Pulse Ox O2 Delivery O2 Flow Rate FiO2 07/28/18 08:00 98.2 69 18 107/55 (72) 96 07/28/18 04:00 97.7 64 18 116/63 (80) 96 07/28/18 00:00 97.6 80 18 153/92 (112) 99 07/27/18 21:00 Room Air 07/27/18 20:00 99.3 53 18 122/63 (82) 95 07/27/18 16:00 97.9 62 18 129/79 (96) 97 07/27/18 12:58 108/52 07/27/18 12:00 98.7 68 18 122/83 (96) 98 Intake and Output 07/27/18 07/28/18 19:00 07:00 Intake Total 300 ml 50 ml Output Total 250 ml 275 ml Balance 50 ml -225 ml Intake Oral 300 ml 50 ml Output Urine Total 250 ml 275 ml Laboratory Tests Test 07/28/18 05:35 White Blood Count 7.5 K/UL (4.8-10.8) Red Blood Count 3.35 M/UL (4.20-5.40) L Hemoglobin 10.3 G/DL (12.0-16.0) L Hematocrit 31.7 % (37.0-47.0) L Mean Corpuscular Volume 95 FL (80-99) Mean Corpuscular Hemoglobin 30.7 PG (27.0-31.0) Mean Corpuscular Hemoglobin Concent 32.5 G/DL (32.0-36.0) Red Cell Distribution Width 12.9 % (11.6-14.8) Platelet Count 198 K/UL (150-450) Mean Platelet Volume 5.8 FL (6.5-10.1) L Neutrophils (%) (Auto) 57.4 % (45.0-75.0) Lymphocytes (%) (Auto) 26.7 % (20.0-45.0) Monocytes (%) (Auto) 7.0 % (1.0-10.0) Eosinophils (%) (Auto) 7.5 % (0.0-3.0) H Basophils (%) (Auto) 1.3 % (0.0-2.0) Sodium Level 136 MMOL/L (136-145) Potassium Level 3.9 MMOL/L (3.5-5.1) Chloride Level 101 MMOL/L (98-107) Carbon Dioxide Level 27 MMOL/L (21-32) Anion Gap 8 mmol/L (5-15) Blood Urea Nitrogen 23 mg/dL (7-18) H Creatinine 0.7 MG/DL (0.55-1.30) Estimat Glomerular Filtration Rate mL/min (>60) Glucose Level 88 MG/DL (74-106) Calcium Level 8.8 MG/DL (8.5-10.1) Height (Feet): 5 Height (Inches): 2.00 Weight (Pounds): 106 General Appearance: WD/WN, no apparent distress, alert Cardiovascular: normal rate Respiratory/Chest: normal breath sounds, no respiratory distress Abdominal Exam: normal bowel sounds, non tender, soft Extremities: normal range of motion, non-tender Michael Carranza NP Jul 28, 2018 10:08
[2018-07-28 12:00] VITALS: BP 110/73
[2018-07-28] MEDS: HydrALAZINE 50mg tab ORAL SCH (12:49)
[2018-07-28 16:00] VITALS: BP 148/83
--- NOTE | 2018-07-28 19:18 | Cardiology Progress Note ---
Assessment/Plan Assessment/Plan 1. History of hypertension. 2. History of arthritis. 3. hip fx 4. Parkinson dvt ppx bp is ok dpoign well post op need PT Subjective Cardiovascular: Denies: chest pain, lightheadedness, palpitations Respiratory: Denies: shortness of breath Gastrointestinal/Abdominal: Denies: abdominal pain Genitourinary: Denies: burning Objective Last 24 Hour Vital Signs Date Time Temp Pulse Resp B/P (MAP) Pulse Ox O2 Delivery O2 Flow Rate FiO2 07/28/18 16:30 Room Air 07/28/18 16:00 97.9 74 18 148/83 (104) 93 07/28/18 12:49 110/73 07/28/18 12:49 81 110/73 07/28/18 12:00 98.5 81 18 110/73 (85) 96 07/28/18 10:10 Room Air 07/28/18 09:00 Room Air 07/28/18 08:00 98.2 69 18 107/55 (72) 96 07/28/18 04:00 97.7 64 18 116/63 (80) 96 07/28/18 00:00 97.6 80 18 153/92 (112) 99 07/27/18 21:00 Room Air 07/27/18 20:00 99.3 53 18 122/63 (82) 95 General Appearance: no apparent distress, alert Neck: supple Cardiovascular: normal rate Respiratory/Chest: lungs clear Abdomen: normal bowel sounds, non tender, soft Extremities: no swelling Intake and Output 07/27/18 07/28/18 19:00 07:00 Intake Total 300 ml 50 ml Output Total 250 ml 275 ml Balance 50 ml -225 ml Intake Oral 300 ml 50 ml Output Urine Total 250 ml 275 ml Laboratory Tests Test 07/28/18 05:35 White Blood Count 7.5 K/UL (4.8-10.8) Red Blood Count 3.35 M/UL (4.20-5.40) L Hemoglobin 10.3 G/DL (12.0-16.0) L Hematocrit 31.7 % (37.0-47.0) L Mean Corpuscular Volume 95 FL (80-99) Mean Corpuscular Hemoglobin 30.7 PG (27.0-31.0) Mean Corpuscular Hemoglobin Concent 32.5 G/DL (32.0-36.0) Red Cell Distribution Width 12.9 % (11.6-14.8) Platelet Count 198 K/UL (150-450) Mean Platelet Volume 5.8 FL (6.5-10.1) L Neutrophils (%) (Auto) 57.4 % (45.0-75.0) Lymphocytes (%) (Auto) 26.7 % (20.0-45.0) Monocytes (%) (Auto) 7.0 % (1.0-10.0) Eosinophils (%) (Auto) 7.5 % (0.0-3.0) H Basophils (%) (Auto) 1.3 % (0.0-2.0) Sodium Level 136 MMOL/L (136-145) Potassium Level 3.9 MMOL/L (3.5-5.1) Chloride Level 101 MMOL/L (98-107) Carbon Dioxide Level 27 MMOL/L (21-32) Anion Gap 8 mmol/L (5-15) Blood Urea Nitrogen 23 mg/dL (7-18) H Creatinine 0.7 MG/DL (0.55-1.30) Estimat Glomerular Filtration Rate mL/min (>60) Glucose Level 88 MG/DL (74-106) Calcium Level 8.8 MG/DL (8.5-10.1) Mario Durbin MD Jul 28, 2018 19:18
--- NOTE | 2018-07-28 19:35 | NUR ---
HAND-OFF: Report given to Shamar Boston RN.
--- NOTE | 2018-07-28 19:45 | NUR ---
NURSE NOTES: Received report from ANJELICA Vega and rounds made. Receive pt in bed, AOX4, denies pain, no distress noted. Surgical dressing C/D/I. Bed in lowest position, locked and alarm on, side rails up x 2, call light within reach. Will continue to monitor.
[2018-07-28 20:00] VITALS: BP 140/67
--- NOTE | 2018-07-28 22:15 | Progress Note ---
DATE: 07/28/2018 SUBJECTIVE: The patient was admitted to the hospital with a hip fracture, status post hip surgery. Doing well. She denies too much pain. She denies double vision, blurred vision. She is slightly altered. She has got history of mild dementia. PHYSICAL EXAMINATION: GENERAL: The patient is well-developed and well-nourished female, no acute distress. HEENT: Normocephalic and atraumatic. Extraocular muscles intact. NECK: No JVD. No carotid bruits. HEART: S1 and S2. LUNGS: Clear. ABDOMEN: Soft. EXTREMITIES: No clubbing or cyanosis. IMPRESSION: 1. Status post hip surgery . 2. PT/OT. 3. Discharge planning home versus resting facility. Jeffrey Noe M.D. DR: Ravin JOB#: [id number] CC:
[2018-07-28] MEDS: Miralax 17gm pkt ORAL SCH (22:19)
[2018-07-29] VITALS: BP 141/81
[2018-07-29 05:00] VITALS: BP 147/92
[2018-07-29] MEDS: Levodopa/Carbidopa 10/100 tab ORAL SCH ×5 (06:18→20:07)
[2018-07-29 06:36] LABS: BASOPHILS % (AUTO) 1.2 % (0.0-2.0); HEMATOCRIT 32.2 % (37.0-47.0); HEMOGLOBIN 10.8 G/DL (12.0-16.0); LYMPHOCYTES % (AUTO) 24.5 % (20.0-45.0); MEAN CORPUSCULAR VOLUME 93 FL (80-99); MONOCYTES % (AUTO) 6.5 % (1.0-10.0); NEUTROPHILS % (AUTO) 56.8 % (45.0-75.0); PLATELET COUNT 226 K/UL (150-450); RED BLOOD COUNT 3.45 M/UL (4.20-5.40); RED CELL DISTRIBUTION WIDTH 12.6 % (11.6-14.8); WHITE BLOOD COUNT 6.7 K/UL (4.8-10.8)
[2018-07-29 06:52] LABS: ANION GAP 11 mmol/L (5-15); BLOOD UREA NITROGEN 22 mg/dL (7-18); CALCIUM 9.4 MG/DL (8.5-10.1); CARBON DIOXIDE 24 MMOL/L (21-32); CHLORIDE 104 MMOL/L (98-107); CREATININE 0.6 MG/DL (0.55-1.30); POTASSIUM 3.8 MMOL/L (3.5-5.1); SODIUM 139 MMOL/L (136-145)
--- NOTE | 2018-07-29 07:35 | NUR ---
HAND-OFF: Report given to ANJELICA Vance. Pt in stable condition.
--- NOTE | 2018-07-29 07:40 | NUR ---
NURSE NOTES: Patient lying in bed awake. No complain of pain or distress at this time. Skin intact and dry. Surgical dressing intact and dry. IV dressing intact and dry. Bed lowest position. Call light within reach. Will continue to monitor.
[2018-07-29 08:00] VITALS: BP 140/76
[2018-07-29] MEDS: clonazePAM 0.5mg tab ORAL SCH (09:37)
[2018-07-29] MEDS: celeBREX 200mg Cap **SURGERY PATIENTS ONLY ORAL SCH (09:37)
[2018-07-29] MEDS: Docusate 100mg cap ORAL SCH ×3 (09:38→17:45)
[2018-07-29] MEDS: Heparin 5000 units/ml inj SUBQ SCH ×2 (09:39→20:07)
[2018-07-29 12:00] VITALS: BP 150/83
[2018-07-29] MEDS: HydrALAZINE 50mg tab ORAL SCH (13:29)
--- NOTE | 2018-07-29 13:44 | General Progress Note ---
Assessment/Plan Problem List: (1) Fracture, intertrochanteric, left femur ICD Codes: S72.142A - Displaced intertrochanteric fracture of left femur, initial encounter for closed fracture SNOMED: 444309095 Qualifiers: Qualified Codes: S72.145A - Nondisplaced intertrochanteric fracture of left femur, initial encounter for closed fracture (2) Parkinson disease ICD Codes: G20 - Parkinson's disease SNOMED: 95568814 (3) Nausea ICD Codes: R11.0 - Nausea SNOMED: 811240621 (4) General weakness ICD Codes: R53.1 - Weakness SNOMED: 22235397 (5) Constipation ICD Codes: K59.00 - Constipation, unspecified SNOMED: 77824629 (6) HTN (hypertension) ICD Codes: I10 - Essential (primary) hypertension SNOMED: 26902259 Status: stable Assessment/Plan: s/p ORIF of L femoral neck Fx elevated alk phos, now normal. no plans for GI procedures at this time, symptomatic treatment Diet per surgery zofran prn, reglan for persistent vomiting ppi bowel regime, colace + miralax pain mgmt follow labs outpatient GI procedure Subjective ROS Limited/Unobtainable: Yes Allergies: Coded Allergies: Dairy (Verified Allergy, Severe, 05/04/18) diarrhea Objective Last 24 Hour Vital Signs Date Time Temp Pulse Resp B/P (MAP) Pulse Ox O2 Delivery O2 Flow Rate FiO2 07/29/18 13:29 150/83 07/29/18 12:00 98.0 67 15 150/83 (105) 97 07/29/18 09:38 63 140/76 07/29/18 09:00 Room Air 07/29/18 08:00 98.2 63 15 140/76 (97) 97 07/29/18 05:00 97.5 68 18 147/92 (110) 95 07/29/18 00:00 97.3 71 16 141/81 (101) 94 07/28/18 21:00 Room Air 07/28/18 20:00 99.0 74 18 140/67 (91) 99 07/28/18 16:30 Room Air 07/28/18 16:00 97.9 74 18 148/83 (104) 93 Intake and Output 07/28/18 07/29/18 18:59 06:59 Intake Total 336 ml 50 ml Output Total 125 ml Balance 211 ml 50 ml Intake Oral 336 ml 50 ml Output Urine Total 125 ml # Voids 3 # Bowel Movements 2 2 Laboratory Tests 07/29/18 05:45: White Blood Count 6.7, Red Blood Count 3.45L, Hemoglobin 10.8L, Hematocrit 32.2L , Mean Corpuscular Volume 93, Mean Corpuscular Hemoglobin 31.2H, Mean Corpuscular Hemoglobin Concent 33.4, Red Cell Distribution Width 12.6, Platelet Count 226, Mean Platelet Volume 5.5L, Neutrophils (%) (Auto) 56.8, Lymphocytes ( %) (Auto) 24.5, Monocytes (%) (Auto) 6.5, Eosinophils (%) (Auto) 11.0H, Basophils (%) (Auto) 1.2, Sodium Level 139, Potassium Level 3.8, Chloride Level 104, Carbon Dioxide Level 24, Anion Gap 11, Blood Urea Nitrogen 22H, Creatinine 0.6, Estimat Glomerular Filtration Rate , Glucose Level 98, Calcium Level 9.4 Height (Feet): 5 Height (Inches): 2.00 Weight (Pounds): 106 General Appearance: no apparent distress EENT: normal ENT inspection Neck: supple Cardiovascular: normal rate Respiratory/Chest: decreased breath sounds Abdomen: normal bowel sounds, non tender, soft Extremities: non-tender Henry Gould MD Jul 29, 2018 13:44
--- NOTE | 2018-07-29 15:12 | NUR ---
CASE MANAGEMENT:REVIEW 07/29/18 SI: POD #3..S/P LT HIP ORIF 98.0 67 15 150/83 97% ON RA H/H-10.8/32.2 IS: CELEBREX PO QD PROTONIX PO QD NORCO PO Q6HRS HYDRALAZINE PO Q24 HEPARIN SQ Q12 ATENOLOL PO QD KLONIPIN PO QD : MED/SURG STATUS 3 EAST DCP: HOME WITH [facility] PER MD'S ORDER
--- NOTE | 2018-07-29 15:16 | NUR ---
DISCHARGE PLANNING PER MD'S ORDER FAXED CLINICALS TO [facility] T: [phone] F: [phone]
[2018-07-29 16:00] VITALS: BP 145/68
--- NOTE | 2018-07-29 19:25 | Cardiology Progress Note ---
Assessment/Plan Assessment/Plan 1. History of hypertension. 2. History of arthritis. 3. hip fx 4. Parkinson dvt ppx bp is ok doing well post op had some PT not her usual good mood Subjective Cardiovascular: Denies: chest pain, lightheadedness Respiratory: Denies: shortness of breath Gastrointestinal/Abdominal: Denies: abdominal pain Genitourinary: Denies: burning Objective Last 24 Hour Vital Signs Date Time Temp Pulse Resp B/P (MAP) Pulse Ox O2 Delivery O2 Flow Rate FiO2 07/29/18 16:00 98.3 70 15 145/68 (93) 98 07/29/18 13:29 150/83 07/29/18 12:00 98.0 67 15 150/83 (105) 97 07/29/18 09:38 63 140/76 07/29/18 09:00 Room Air 07/29/18 08:00 98.2 63 15 140/76 (97) 97 07/29/18 05:00 97.5 68 18 147/92 (110) 95 07/29/18 00:00 97.3 71 16 141/81 (101) 94 07/28/18 21:00 Room Air 07/28/18 20:00 99.0 74 18 140/67 (91) 99 General Appearance: no apparent distress Neck: supple Cardiovascular: normal rate, regular rhythm Respiratory/Chest: lungs clear Abdomen: normal bowel sounds, non tender, soft Extremities: no swelling Intake and Output 07/28/18 07/29/18 18:59 06:59 Intake Total 336 ml 50 ml Output Total 125 ml Balance 211 ml 50 ml Intake Oral 336 ml 50 ml Output Urine Total 125 ml # Voids 3 # Bowel Movements 2 2 Laboratory Tests Test 07/29/18 05:45 White Blood Count 6.7 K/UL (4.8-10.8) Red Blood Count 3.45 M/UL (4.20-5.40) L Hemoglobin 10.8 G/DL (12.0-16.0) L Hematocrit 32.2 % (37.0-47.0) L Mean Corpuscular Volume 93 FL (80-99) Mean Corpuscular Hemoglobin 31.2 PG (27.0-31.0) H Mean Corpuscular Hemoglobin Concent 33.4 G/DL (32.0-36.0) Red Cell Distribution Width 12.6 % (11.6-14.8) Platelet Count 226 K/UL (150-450) Mean Platelet Volume 5.5 FL (6.5-10.1) L Neutrophils (%) (Auto) 56.8 % (45.0-75.0) Lymphocytes (%) (Auto) 24.5 % (20.0-45.0) Monocytes (%) (Auto) 6.5 % (1.0-10.0) Eosinophils (%) (Auto) 11.0 % (0.0-3.0) H Basophils (%) (Auto) 1.2 % (0.0-2.0) Sodium Level 139 MMOL/L (136-145) Potassium Level 3.8 MMOL/L (3.5-5.1) Chloride Level 104 MMOL/L (98-107) Carbon Dioxide Level 24 MMOL/L (21-32) Anion Gap 11 mmol/L (5-15) Blood Urea Nitrogen 22 mg/dL (7-18) H Creatinine 0.6 MG/DL (0.55-1.30) Estimat Glomerular Filtration Rate mL/min (>60) Glucose Level 98 MG/DL (74-106) Calcium Level 9.4 MG/DL (8.5-10.1) Mario Durbin MD Jul 29, 2018 19:25
--- NOTE | 2018-07-29 19:30 | NUR ---
HAND-OFF: Report given to Daniele DEJESUS. Patient in stable condition.
--- NOTE | 2018-07-29 19:41 | NUR ---
NURSE NOTES: Received patient asleep in bed, no s/s of acute distress, IS at the bedside, surgical dressing dry and intact. Fall and safety precautions taken. IV access asymptomatic on saline lock.
[2018-07-29 20:00] VITALS: BP 172/85
[2018-07-29] MEDS: Miralax 17gm pkt ORAL SCH (20:26)
--- NOTE | 2018-07-29 21:15 | Progress Note ---
DATE: 07/25/2018 NOTE: POOR AUDIO CHIEF COMPLAINT: Left hip pain. SUBJECTIVE: no issues overnight. She is resting comfortably in bed. She was diagnosed with nondisplaced left greater trochanteric fracture MRI today. OBJECTIVE: GENERAL: The patient is resting comfortably in bed. VITAL SIGNS: Afebrile. Stable vital signs. EXTREMITIES: Posterior calf is soft. DIAGNOSTIC DATA: MRI of the left hip is reviewed. It shows extension to intertrochanteric area. ASSESSMENT: Left minimally displaced intertrochanteric fracture. DISCUSSION: At this point, there is extension to intertrochanteric area. There was long discussion with Adrianna her daughter and power of personal injury attorney regarding the prophylactic fixation of the fracture, particularly given that her cognitive issues as well as nondisplaced fracture. straightforward versus her having another fall causing it complete displacement and further combination of the fracture site. Risks, limitations, expectations, and complications of the procedure were discussed in detail. All questions were addressed. We will proceed with surgery tomorrow. She is medically cleared by Dr. Noe. Celso Duran M.D. DR: TAVO JOB#: [id number] CC: JENNY
[2018-07-30] VITALS (7 sets, daily range): BP systolic 100–135; BP diastolic 55–79
[2018-07-30] MEDS: Levodopa/Carbidopa 10/100 tab ORAL SCH ×5 (06:15→18:37)
--- NOTE | 2018-07-30 07:02 | NUR ---
HAND-OFF: Report given to ANJELICA Randolph.
--- NOTE | 2018-07-30 07:51 | NUR ---
NURSE NOTES: Received report from Sheila DEJESUS. Patient is sleeping during rounds, laying in semi-martini position, no acute distress noted, RR even and unlabored on RA. Left hip dressing clean, dry, intact. Purewick in place, patient clean and dry at this time. SCD's on. LFA IV locked and wrapped, asymptomatic. Fall precautions maintained. Side rails upx3, bed low and locked, call light in reach. Will continue to monitor.
[2018-07-30] MEDS: Heparin 5000 units/ml inj SUBQ SCH ×2 (09:02→21:05)
[2018-07-30] MEDS: clonazePAM 0.5mg tab ORAL SCH (09:03)
[2018-07-30] MEDS: Docusate 100mg cap ORAL SCH ×3 (09:03→18:37)
[2018-07-30] MEDS: celeBREX 200mg Cap **SURGERY PATIENTS ONLY ORAL SCH (09:04)
--- NOTE | 2018-07-30 10:39 | General Progress Note ---
Assessment/Plan Problem List: (1) Fracture, intertrochanteric, left femur ICD Codes: S72.142A - Displaced intertrochanteric fracture of left femur, initial encounter for closed fracture SNOMED: 938856800 Qualifiers: Qualified Codes: S72.145A - Nondisplaced intertrochanteric fracture of left femur, initial encounter for closed fracture (2) Parkinson disease ICD Codes: G20 - Parkinson's disease SNOMED: 62275944 (3) Nausea ICD Codes: R11.0 - Nausea SNOMED: 960448034 (4) General weakness ICD Codes: R53.1 - Weakness SNOMED: 83765628 (5) Constipation ICD Codes: K59.00 - Constipation, unspecified SNOMED: 62687514 (6) HTN (hypertension) ICD Codes: I10 - Essential (primary) hypertension SNOMED: 14539193 Status: stable Assessment/Plan: s/p ORIF of L femoral neck Fx elevated alk phos, now normal. no plans for GI procedures at this time, symptomatic treatment Diet per surgery zofran prn, reglan for persistent vomiting ppi bowel regime, colace + miralax pain mgmt follow labs outpatient GI procedure had a good BM today Subjective ROS Limited/Unobtainable: Yes Allergies: Coded Allergies: Dairy (Verified Allergy, Severe, 05/04/18) diarrhea Objective Last 24 Hour Vital Signs Date Time Temp Pulse Resp B/P (MAP) Pulse Ox O2 Delivery O2 Flow Rate FiO2 07/30/18 09:03 70 115/71 07/30/18 08:00 97.6 70 20 115/71 (86) 97 07/30/18 04:00 97.7 67 17 135/79 (97) 99 07/30/18 00:00 97.3 71 16 135/64 (87) 99 07/29/18 23:02 Room Air 07/29/18 20:00 97.7 75 18 172/85 (114) 99 07/29/18 16:00 98.3 70 15 145/68 (93) 98 07/29/18 13:29 150/83 07/29/18 12:00 98.0 67 15 150/83 (105) 97 Intake and Output 07/29/18 07/30/18 19:00 07:00 Intake Total 500 ml Output Total 350 ml Balance 500 ml -350 ml Intake Oral 500 ml Output Urine Total 350 ml # Voids 5 # Bowel Movements 1 Height (Feet): 5 Height (Inches): 2.00 Weight (Pounds): 106 General Appearance: alert EENT: normal ENT inspection Neck: supple Cardiovascular: normal rate Respiratory/Chest: decreased breath sounds Abdomen: normal bowel sounds, non tender, soft Extremities: non-tender Henry Gould MD Jul 30, 2018 10:39
--- NOTE | 2018-07-30 10:46 | Cardiology Progress Note ---
Assessment/Plan Assessment/Plan 1. History of hypertension. 2. History of arthritis. 3. hip fx 4. Parkinson dvt ppx bp is ok doing well post op had some PT Subjective Cardiovascular: Denies: chest pain Respiratory: Denies: shortness of breath Gastrointestinal/Abdominal: Denies: abdominal pain Genitourinary: Denies: burning Objective Last 24 Hour Vital Signs Date Time Temp Pulse Resp B/P (MAP) Pulse Ox O2 Delivery O2 Flow Rate FiO2 07/30/18 09:03 70 115/71 07/30/18 08:00 97.6 70 20 115/71 (86) 97 07/30/18 04:00 97.7 67 17 135/79 (97) 99 07/30/18 00:00 97.3 71 16 135/64 (87) 99 07/29/18 23:02 Room Air 07/29/18 20:00 97.7 75 18 172/85 (114) 99 07/29/18 16:00 98.3 70 15 145/68 (93) 98 07/29/18 13:29 150/83 07/29/18 12:00 98.0 67 15 150/83 (105) 97 General Appearance: no apparent distress, alert Neck: supple Cardiovascular: normal rate Respiratory/Chest: lungs clear Abdomen: normal bowel sounds, non tender, soft Extremities: no swelling Intake and Output 07/29/18 07/30/18 19:00 07:00 Intake Total 500 ml Output Total 350 ml Balance 500 ml -350 ml Intake Oral 500 ml Output Urine Total 350 ml # Voids 5 # Bowel Movements 1 Mario Durbin MD Jul 30, 2018 10:46
[2018-07-30] MEDS: HydrALAZINE 50mg tab ORAL SCH (13:00)
--- NOTE | 2018-07-30 16:36 | NUR ---
CASE MANAGEMENT:REVIEW 07/30/18 SI: POD #4..S/P LT HIP ORIF T 97.6 HR 70 RR 20 B/P 115/71 SATS 97% ON RA NO LABS TODAY IS: CELEBREX PO QD PROTONIX PO QD NORCO PO Q6HRS HYDRALAZINE PO Q24 HEPARIN SQ Q12 ATENOLOL PO QD KLONOPIN PO QD : MED/SURG STATUS 3 EAST DCP: HOME [facility] PER MD'S ORDER
--- NOTE | 2018-07-30 19:50 | NUR ---
HAND-OFF: Report given to [place] DEJESUS. Patient is in stable condition.
--- NOTE | 2018-07-30 19:51 | NUR ---
NURSE NOTES: Received report & pt from ANJELICA Randolph. Pt lying in bed, a&ox2, in room air, family members at bedside. No s/s of acute distress & no c/o pain at this time. IV site intact & S/L'd. Surgical site C/D/I. Pt on fall precaution. Bed in lowest position, call light within reach. Will continue to monitor.
[2018-07-30] MEDS: Miralax 17gm pkt ORAL SCH (21:00)
[2018-07-31] VITALS: BP 150/79
[2018-07-31 03:30] VITALS: BP 133/72
--- NOTE | 2018-07-31 05:38 | NUR ---
NURSE NOTES: Left hip dressing changed. Pt tolerated very well.
[2018-07-31] MEDS: Levodopa/Carbidopa 10/100 tab ORAL SCH ×5 (06:18→18:22)
--- NOTE | 2018-07-31 07:23 | NUR ---
HAND-OFF: Report given to ANJELICA Randolph. Rounds done. Pt in stable condition.
[2018-07-31 07:59] VITALS: BP 128/77
--- NOTE | 2018-07-31 08:00 | NUR ---
NURSE NOTES: Received report from [place] DEJESUS. During rounds patient is awake alert and oriented, no acute distress noted. Breakfast at bedside, assisted with eating. Bed linens clean and patient dry, SCD's on. Needs met at this time. Fall precautions maintained. Side rails upx3, bed low and locked, call light in reach. Will continue to monitor.
--- NOTE | 2018-07-31 08:23 | General Progress Note ---
Assessment/Plan Problem List: (1) Fracture, intertrochanteric, left femur ICD Codes: S72.142A - Displaced intertrochanteric fracture of left femur, initial encounter for closed fracture SNOMED: 625613037 Qualifiers: Qualified Codes: S72.145A - Nondisplaced intertrochanteric fracture of left femur, initial encounter for closed fracture (2) Parkinson disease ICD Codes: G20 - Parkinson's disease SNOMED: 19621741 (3) Nausea ICD Codes: R11.0 - Nausea SNOMED: 225978291 (4) General weakness ICD Codes: R53.1 - Weakness SNOMED: 40526371 (5) Constipation ICD Codes: K59.00 - Constipation, unspecified SNOMED: 91708081 (6) HTN (hypertension) ICD Codes: I10 - Essential (primary) hypertension SNOMED: 29153774 Status: stable Assessment/Plan: s/p ORIF of L femoral neck Fx elevated alk phos, now normal. no plans for GI procedures at this time, symptomatic treatment Diet per surgery zofran prn, reglan for persistent vomiting ppi bowel regime, colace + miralax pain mgmt follow labs outpatient GI procedure had a good BM today Subjective ROS Limited/Unobtainable: Yes Allergies: Coded Allergies: Dairy (Verified Allergy, Severe, 05/04/18) diarrhea Objective Last 24 Hour Vital Signs Date Time Temp Pulse Resp B/P (MAP) Pulse Ox O2 Delivery O2 Flow Rate FiO2 07/31/18 07:59 97.7 71 18 128/77 (94) 94 07/31/18 03:30 97.8 75 17 133/72 (92) 95 07/31/18 00:00 98.2 73 18 150/79 (102) 97 07/30/18 21:00 Room Air 07/30/18 20:00 98.4 67 17 129/67 (87) 97 07/30/18 16:00 98.2 61 16 128/67 (87) 99 07/30/18 13:02 61 100/55 (70) 07/30/18 13:00 100/55 07/30/18 12:00 97.3 62 20 111/57 (75) 99 07/30/18 09:03 70 115/71 07/30/18 09:00 Room Air Intake and Output 07/30/18 07/31/18 19:00 07:00 Intake Total 200 ml 120 ml Balance 200 ml 120 ml Intake Oral 200 ml 120 ml # Voids 3 2 # Bowel Movements 2 Height (Feet): 5 Height (Inches): 2.00 Weight (Pounds): 106 General Appearance: alert EENT: normal ENT inspection Neck: supple Cardiovascular: normal rate Respiratory/Chest: decreased breath sounds Abdomen: normal bowel sounds, non tender, soft Extremities: non-tender Henry Gould MD Jul 31, 2018 08:23
[2018-07-31] MEDS: Heparin 5000 units/ml inj SUBQ SCH ×2 (09:29→20:45)
[2018-07-31] MEDS: Docusate 100mg cap ORAL SCH ×3 (09:30→18:22)
[2018-07-31] MEDS: clonazePAM 0.5mg tab ORAL SCH (09:31)
[2018-07-31] MEDS: celeBREX 200mg Cap **SURGERY PATIENTS ONLY ORAL SCH (09:31)
--- NOTE | 2018-07-31 09:55 | Cardiology Progress Note ---
Assessment/Plan Assessment/Plan 1. History of hypertension. 2. History of arthritis. 3. hip fx 4. Parkinson dvt ppx bp is ok doing well post op had some PT labs and u/a mesasge to dr olivares cv remains stalbe Subjective Cardiovascular: Denies: chest pain, lightheadedness, palpitations Respiratory: Denies: shortness of breath Gastrointestinal/Abdominal: Denies: abdominal pain Genitourinary: Denies: burning Objective Last 24 Hour Vital Signs Date Time Temp Pulse Resp B/P (MAP) Pulse Ox O2 Delivery O2 Flow Rate FiO2 07/31/18 09:30 71 128/77 07/31/18 07:59 97.7 71 18 128/77 (94) 94 07/31/18 03:30 97.8 75 17 133/72 (92) 95 07/31/18 00:00 98.2 73 18 150/79 (102) 97 07/30/18 21:00 Room Air 07/30/18 20:00 98.4 67 17 129/67 (87) 97 07/30/18 16:00 98.2 61 16 128/67 (87) 99 07/30/18 13:02 61 100/55 (70) 07/30/18 13:00 100/55 07/30/18 12:00 97.3 62 20 111/57 (75) 99 General Appearance: no apparent distress, alert Neck: supple Cardiovascular: normal rate Respiratory/Chest: lungs clear, normal breath sounds Abdomen: normal bowel sounds, non tender, soft Extremities: no swelling Intake and Output 07/30/18 07/31/18 19:00 07:00 Intake Total 200 ml 120 ml Balance 200 ml 120 ml Intake Oral 200 ml 120 ml # Voids 3 2 # Bowel Movements 2 Mario Durbin MD Jul 31, 2018 09:55
--- NOTE | 2018-07-31 11:09 | NUR ---
NURSE NOTES: UA and culture collected via straight catheterization using aseptic technique per MD order. Patient tolerated well. Urine is light maryuri in color. Urine taken to lab.
[2018-07-31 11:20] LABS: APPEARANCE,URINE CLEAR; BILIRUBIN, URINE NEGATIVE (NEGATIVE); GLUCOSE, URINE (UA) NEGATIVE (NEGATIVE); KETONES,URINE 3+ (NEGATIVE); LEUKOCYTE ESTERASE ,URINE 1+ (NEGATIVE); NITRITE,URINE NEGATIVE (NEGATIVE); PH,URINE 6 (4.5-8.0); PROTEIN,URINE 2+ (NEGATIVE); UROBILINOGEN,URINE 4 MG/DL (0.0-1.0)
[2018-07-31 11:24] LABS: COLOR,URINE YELLOW
[2018-07-31 12:00] VITALS: BP 151/86
[2018-07-31] MEDS: HydrALAZINE 50mg tab ORAL SCH (13:31)
[2018-07-31 16:00] VITALS: BP 111/58
--- NOTE | 2018-07-31 19:30 | NUR ---
HAND-OFF: Report given to John DEJESUS. Patient is in stable condition.
[2018-07-31 20:00] VITALS: BP 106/63
--- NOTE | 2018-07-31 20:30 | NUR ---
NURSE NOTES: Received a report from ANJELICA Randolph. Pt is awake but confusion d/t Dementia. Pt's family members are bed side and she looks happy. No acute distress noted. No pain noted at this time. Skin is dry and warm to touch. Dressing site is clear with gauze and tegaderm. SCDs on both L/E. Leave call light within reach. Bed is lowest position and locked. Will continue to monitor.
[2018-07-31] MEDS: Miralax 17gm pkt ORAL SCH (20:43)
--- NOTE | 2018-07-31 20:56 | General Progress Note ---
Assessment/Plan Problem List: (1) Falls frequently ICD Codes: R29.6 - Repeated falls SNOMED: 041381648 (2) Fracture, intertrochanteric, left femur ICD Codes: S72.142A - Displaced intertrochanteric fracture of left femur, initial encounter for closed fracture SNOMED: 666512788 Qualifiers: Qualified Codes: S72.145A - Nondisplaced intertrochanteric fracture of left femur, initial encounter for closed fracture Status: stable Status Narrative UA does not show any infection Assessment/Plan: Physical therapy Discussed with daughter at length I recommended that the patient goes to a fpc facility, she refuses at this time I did tell her that if she is not get mobilized early she will end up having pressure sores and possible pneumonia etc. She still wants to take her home , so the patient will be discharged tomorrow if the decision does not change Discussed with RN Subjective Allergies: Coded Allergies: Dairy (Verified Allergy, Severe, 05/04/18) diarrhea Subjective Patient is in no distress Objective Last 24 Hour Vital Signs Date Time Temp Pulse Resp B/P (MAP) Pulse Ox O2 Delivery O2 Flow Rate FiO2 07/31/18 16:00 98.0 70 18 111/58 (75) 100 07/31/18 13:31 151/86 07/31/18 12:00 98.9 69 18 151/86 (107) 99 07/31/18 09:30 71 128/77 07/31/18 09:00 Room Air 07/31/18 07:59 97.7 71 18 128/77 (94) 94 07/31/18 03:30 97.8 75 17 133/72 (92) 95 07/31/18 00:00 98.2 73 18 150/79 (102) 97 07/30/18 21:00 Room Air Intake and Output 07/30/18 07/31/18 19:00 07:00 Intake Total 200 ml 120 ml Balance 200 ml 120 ml Intake Oral 200 ml 120 ml # Voids 3 2 # Bowel Movements 2 Laboratory Tests 07/31/18 10:50: Urine Color Yellow, Urine Appearance Clear, Urine pH 6, Urine Specific [place] 1.020, Urine Protein 2+H, Urine Glucose (UA) Negative, Urine Ketones 3+H, Urine Blood 3+H, Urine Nitrite Negative, Urine Bilirubin Negative, Urine Urobilinogen 4H, Urine Leukocyte Esterase 1+H, Urine RBC 5-10H, Urine WBC 0-2, Urine Squamous Epithelial Cells Few, Urine Bacteria Occasional Height (Feet): 5 Height (Inches): 2.00 Weight (Pounds): 106 Cardiovascular: normal rate Respiratory/Chest: lungs clear Edema: no edema noted Generalized Varinder Peter MD Jul 31, 2018 20:56
[2018-08-01] VITALS: BP 135/80
[2018-08-01 04:00] VITALS: BP 163/83
[2018-08-01] MEDS: Levodopa/Carbidopa 10/100 tab ORAL SCH ×5 (06:13→19:04)
--- NOTE | 2018-08-01 06:56 | General Progress Note ---
Assessment/Plan Problem List: (1) Fracture, intertrochanteric, left femur ICD Codes: S72.142A - Displaced intertrochanteric fracture of left femur, initial encounter for closed fracture SNOMED: 522209578 Qualifiers: Qualified Codes: S72.145A - Nondisplaced intertrochanteric fracture of left femur, initial encounter for closed fracture (2) Parkinson disease ICD Codes: G20 - Parkinson's disease SNOMED: 17110976 (3) Nausea ICD Codes: R11.0 - Nausea SNOMED: 907697716 (4) General weakness ICD Codes: R53.1 - Weakness SNOMED: 38494619 (5) Constipation ICD Codes: K59.00 - Constipation, unspecified SNOMED: 60773229 (6) HTN (hypertension) ICD Codes: I10 - Essential (primary) hypertension SNOMED: 83871062 Status: stable Assessment/Plan: s/p ORIF of L femoral neck Fx elevated alk phos, now normal. no plans for GI procedures at this time, symptomatic treatment Diet per surgery zofran prn, reglan for persistent vomiting ppi bowel regime, colace + miralax pain mgmt follow labs outpatient GI procedure Subjective ROS Limited/Unobtainable: Yes Allergies: Coded Allergies: Dairy (Verified Allergy, Severe, 05/04/18) diarrhea Objective Last 24 Hour Vital Signs Date Time Temp Pulse Resp B/P (MAP) Pulse Ox O2 Delivery O2 Flow Rate FiO2 08/01/18 04:00 98.8 72 16 163/83 (109) 99 08/01/18 00:00 97.8 72 20 135/80 (98) 96 07/31/18 21:00 Room Air 07/31/18 20:00 98.3 71 18 106/63 (77) 95 07/31/18 16:00 98.0 70 18 111/58 (75) 100 07/31/18 13:31 151/86 07/31/18 12:00 98.9 69 18 151/86 (107) 99 07/31/18 09:30 71 128/77 07/31/18 09:00 Room Air 07/31/18 07:59 97.7 71 18 128/77 (94) 94 Intake and Output 07/31/18 08/01/18 19:00 07:00 Intake Total 300 ml 150 ml Balance 300 ml 150 ml Intake Oral 300 ml 150 ml # Voids 2 2 # Bowel Movements 2 Laboratory Tests 07/31/18 10:50: Urine Color Yellow, Urine Appearance Clear, Urine pH 6, Urine Specific [place] 1.020, Urine Protein 2+H, Urine Glucose (UA) Negative, Urine Ketones 3+H, Urine Blood 3+H, Urine Nitrite Negative, Urine Bilirubin Negative, Urine Urobilinogen 4H, Urine Leukocyte Esterase 1+H, Urine RBC 5-10H, Urine WBC 0-2, Urine Squamous Epithelial Cells Few, Urine Bacteria Occasional Height (Feet): 5 Height (Inches): 2.00 Weight (Pounds): 106 General Appearance: alert EENT: normal ENT inspection Neck: supple Cardiovascular: normal rate Respiratory/Chest: decreased breath sounds Abdomen: normal bowel sounds, non tender, soft Extremities: non-tender Henry Gould MD Aug 01, 2018 06:56
--- NOTE | 2018-08-01 07:27 | NUR ---
HAND-OFF: Report given to ANJELICA Tabares.
--- NOTE | 2018-08-01 07:36 | NUR ---
NURSE NOTES: Pt AO x 1 in bed requires assistance for feeding. Anticipated need require to be met due to baseline. Current plan of care will be followed
[2018-08-01 08:00] VITALS: BP 124/67
[2018-08-01 08:25] LABS: BASOPHILS % (AUTO) 0.6 % (0.0-2.0); EOSINOPHILS % (AUTO) 3.9 % (0.0-3.0); HEMATOCRIT 33.4 % (37.0-47.0); HEMOGLOBIN 11.2 G/DL (12.0-16.0); LYMPHOCYTES % (AUTO) 18.3 % (20.0-45.0); MEAN CORPUSCULAR VOLUME 93 FL (80-99); MONOCYTES % (AUTO) 6.7 % (1.0-10.0); NEUTROPHILS % (AUTO) 70.4 % (45.0-75.0); PLATELET COUNT 333 K/UL (150-450); RED BLOOD COUNT 3.59 M/UL (4.20-5.40); RED CELL DISTRIBUTION WIDTH 13.2 % (11.6-14.8); WHITE BLOOD COUNT 7.1 K/UL (4.8-10.8)
[2018-08-01 08:50] LABS: ALANINE AMINOTRANSFERASE 8 U/L (12-78); ALBUMIN 3.5 G/DL (3.4-5.0); ALBUMIN/GLOBULIN RATIO 0.9 (1.0-2.7); ALKALINE PHOSPHATASE 107 U/L (46-116); ANION GAP 11 mmol/L (5-15); ASPARTATE AMINO TRANSFERASE 15 U/L (15-37); BILIRUBIN,TOTAL 0.6 MG/DL (0.2-1.0); BLOOD UREA NITROGEN 25 mg/dL (7-18); CALCIUM 9.4 MG/DL (8.5-10.1); CARBON DIOXIDE 25 MMOL/L (21-32); CHLORIDE 105 MMOL/L (98-107); CREATININE 0.6 MG/DL (0.55-1.30); POTASSIUM 3.4 MMOL/L (3.5-5.1); SODIUM 141 MMOL/L (136-145)
[2018-08-01] MEDS: Docusate 100mg cap ORAL SCH ×3 (08:58→17:38)
[2018-08-01] MEDS: celeBREX 200mg Cap **SURGERY PATIENTS ONLY ORAL SCH (08:59)
[2018-08-01] MEDS: Heparin 5000 units/ml inj SUBQ SCH (09:00)
--- NOTE | 2018-08-01 10:07 | NUR ---
NURSE NOTES: Pt require assistance, for feeding required encouragement to take medications. Kept medication in mouth without swallowing. Applesauce and oatmeal, given , to swallow medication . Participated in physical therapy. Pt is unable to walk. Refused to stand during therapy. Current plan of care will be followed.
--- NOTE | 2018-08-01 11:19 | NUR ---
NURSE NOTES: Pt is awake took a short nap after breakfast. Has been sleeping mostly since start of shift. Bandage remains clean and intact. Bandage dated for yesterday as changed.
--- NOTE | 2018-08-01 11:55 | NUR ---
RD ASSESSMENT & RECOMMENDATIONS SEE CARE ACTIVITY FOR COMPLETE ASSESSMENT DAILY ESTIMATED NEEDS: Needs based on General/ 48kg 30-35 kcals/kg 6107-3332 total kcals 1-2 g protein/kg 48-96 g total protein 25-30 mL/kg 8197-3640 total fluid mLs NUTRITION DIAGNOSIS: 1) Increased kcal/pro needs r/t surgical wound healing as evidenced by s/ LL hip ORIF. 2) Self feeding difficulty R/T h/o Parkinson's disease as evidenced by pt requires 1:1 feeds + encouragement. CURRENT DIET:Regular PO DIET RECOMMENDATIONS: Dairy free/ Lactose free diet/ texture per TOLL LINE INSPECTOR ADDITIONAL RECOMMENDATIONS: * Calibrated bedscale wt for accurate CBW * Monitor lytes, replete as needed * TOLL LINE INSPECTOR eval for appropriate texture * Add Ensure 1 bottle BID * As accepted, rec SLIME Fruit Punch w/ 8 oz water BID + Vit C 250mg daily
--- NOTE | 2018-08-01 11:59 | NUR ---
RD ASSESSMENT & RECOMMENDATIONS SEE CARE ACTIVITY FOR COMPLETE ASSESSMENT DAILY ESTIMATED NEEDS: Needs based on General/ 48kg 30-35 kcals/kg 1608-5676 total kcals 1-2 g protein/kg 48-96 g total protein 25-30 mL/kg 3818-5020 total fluid mLs NUTRITION DIAGNOSIS: 1) Increased kcal/pro needs r/t surgical wound healing as evidenced by s/ LL hip ORIF. 2) Self feeding difficulty R/T h/o Parkinson's disease as evidenced by pt requires 1:1 feeds + encouragement. CURRENT DIET:Regular PO DIET RECOMMENDATIONS: Dairy free/ Lactose free diet/ texture per CEMETERY COUNSELOR ADDITIONAL RECOMMENDATIONS: * Calibrated bedscale wt for accurate CBW * Monitor lytes, replete as needed * CEMETERY COUNSELOR eval for appropriate texture * Surgical wound healing: add Vit C 250mg daily + Mvi x1 daily * High pro snacks BID in b/w meals * Hold recs for Ensure and Levi until Dairy allergy vs Lactose intolerance can be confirmed (Per EMR pt w/ Dairy allergy) * -
[2018-08-01 12:00] VITALS: BP 158/88
--- NOTE | 2018-08-01 12:13 | NUR ---
CASE MANAGEMENT:REVIEW 08/01/18 SI: POD #6..S/P LT HIP ORIF 98.0 67 15 150/83 97% ON RA H/H-10.8/32.2 IS: CELEBREX PO QD PROTONIX PO QD NORCO PO Q6HRS HYDRALAZINE PO Q24 HEPARIN SQ Q12 ATENOLOL PO QD KLONIPIN PO QD : MED/SURG STATUS 3 EAST DCP: HOME WITH [facility] PER MD'S ORDER
--- NOTE | 2018-08-01 12:18 | NUR ---
DISCHARGE PLAN REFERRED TO: FAXED CLINICALS TO [facility] T: [phone] F: [phone] CALLED HOME [facility] AND SPOKE WITH OSVALDO WHO CONFIRMED THEY WILL SEE PATIENT UPON DISCHARGE. HOME [facility] NEEDS TO BE NOTIFIED OF DISCHARGE DATE
[2018-08-01] MEDS: HydrALAZINE 50mg tab ORAL SCH (13:11)
[2018-08-01] MEDS ORDERED: HEPARIN SO5000 UNIT2 SUBQ (13:12)
--- NOTE | 2018-08-01 13:17 | Consultation ---
Consult Note Assessment/Plan Dc dictated # [id number] Varinder Peter MD Aug 01, 2018 13:17
[2018-08-01 16:00] VITALS: BP 152/76
--- NOTE | 2018-08-01 16:01 | NUR ---
NURSE NOTES: Dr Lawrence phoned for low potassium level gave orders for 40 meq potassium chloride po
--- NOTE | 2018-08-01 16:18 | NUR ---
NURSE NOTES: Nurse Areli took over care. Made aware of pending discharge
--- NOTE | 2018-08-01 16:30 | Discharge Summary ---
DATE OF ADMISSION: 07/24/2018 DATE OF DISCHARGE: 08/01/2018 CHIEF COMPLAINT: Status post fall and the patient developed hip fracture. HISTORY OF PRESENT ILLNESS: This is an elderly female, who has a history of dementia and was brought in after she fell and fractured her left hip. HOSPITAL COURSE: The patient underwent left hip surgery repair by Dr. Duran. The patient also followed by Dr. Durbin in Cardiology consultation. She remained stable. The patient had some nausea for which she was followed also by GI. Bowel regimen was given including MiraLAX. The patient was finally discharged home in stable condition. I had a discussion today prior to discharge. I suggested the patient goes to a senior living facility because of the high risk of getting complications post surgery such as pressure sores, but the daughter insisted to take her home. DISCHARGE DIAGNOSES: 1. Left intertrochanteric fracture, status post open reduction, internal fixation. 2. History of dementia. 3. History of scoliosis. 4. History of nausea. DISCHARGE MEDICATIONS: Please refer to discharge medication list. Varinder Peter M.D. DR: MILAN JOB#: [id number] CC:
--- NOTE | 2018-08-01 17:36 | Cardiology Progress Note ---
Assessment/Plan Assessment/Plan 1. History of hypertension. 2. History of arthritis. 3. hip fx 4. Parkinson dvt ppx bp is ok doing well post op cv remains stable Subjective Respiratory: Denies: shortness of breath Gastrointestinal/Abdominal: Denies: abdominal pain Genitourinary: Denies: burning Objective Last 24 Hour Vital Signs Date Time Temp Pulse Resp B/P (MAP) Pulse Ox O2 Delivery O2 Flow Rate FiO2 08/01/18 13:11 158/88 08/01/18 12:00 97.7 67 20 158/88 (111) 96 08/01/18 09:00 Room Air 08/01/18 08:58 67 124/67 08/01/18 08:00 98.1 88 20 124/67 (86) 94 08/01/18 04:00 98.8 72 16 163/83 (109) 99 08/01/18 00:00 97.8 72 20 135/80 (98) 96 07/31/18 21:00 Room Air 07/31/18 20:00 98.3 71 18 106/63 (77) 95 General Appearance: no apparent distress, alert Neck: supple Cardiovascular: normal rate Respiratory/Chest: lungs clear, normal breath sounds Abdomen: non tender, soft Extremities: no swelling Intake and Output 07/31/18 08/01/18 19:00 07:00 Intake Total 300 ml 150 ml Balance 300 ml 150 ml Intake Oral 300 ml 150 ml # Voids 2 2 # Bowel Movements 2 Laboratory Tests Test 08/01/18 07:21 White Blood Count 7.1 K/UL (4.8-10.8) Red Blood Count 3.59 M/UL (4.20-5.40) L Hemoglobin 11.2 G/DL (12.0-16.0) L Hematocrit 33.4 % (37.0-47.0) L Mean Corpuscular Volume 93 FL (80-99) Mean Corpuscular Hemoglobin 31.2 PG (27.0-31.0) H Mean Corpuscular Hemoglobin Concent 33.6 G/DL (32.0-36.0) Red Cell Distribution Width 13.2 % (11.6-14.8) Platelet Count 333 K/UL (150-450) Mean Platelet Volume 5.2 FL (6.5-10.1) L Neutrophils (%) (Auto) 70.4 % (45.0-75.0) Lymphocytes (%) (Auto) 18.3 % (20.0-45.0) L Monocytes (%) (Auto) 6.7 % (1.0-10.0) Eosinophils (%) (Auto) 3.9 % (0.0-3.0) H Basophils (%) (Auto) 0.6 % (0.0-2.0) Sodium Level 141 MMOL/L (136-145) Potassium Level 3.4 MMOL/L (3.5-5.1) L Chloride Level 105 MMOL/L (98-107) Carbon Dioxide Level 25 MMOL/L (21-32) Anion Gap 11 mmol/L (5-15) Blood Urea Nitrogen 25 mg/dL (7-18) H Creatinine 0.6 MG/DL (0.55-1.30) Estimat Glomerular Filtration Rate mL/min (>60) Glucose Level 119 MG/DL (74-106) H Calcium Level 9.4 MG/DL (8.5-10.1) Total Bilirubin 0.6 MG/DL (0.2-1.0) Aspartate Amino Transf (AST/SGOT) 15 U/L (15-37) Alanine Aminotransferase (ALT/SGPT) 8 U/L (12-78) L Alkaline Phosphatase 107 U/L (46-116) Total Protein 7.2 G/DL (6.4-8.2) Albumin 3.5 G/DL (3.4-5.0) Globulin 3.7 g/dL Albumin/Globulin Ratio 0.9 (1.0-2.7) L Microbiology Date/Time Source Procedure Growth Status 07/31/18 10:50 Urine,Clean Catch Urine Culture - Preliminary NO GROWTH Resulted Mario Durbin MD Aug 01, 2018 17:36
--- NOTE | 2018-08-01 17:50 | NUR ---
NURSE NOTES: Received report from ANJELICA Tabares. Patient is in stable condition.
--- NOTE | 2018-08-01 19:44 | NUR ---
HAND-OFF: Report given to ANJELICA Lopez.
[2018-08-01 20:00] VITALS: BP 118/68
--- NOTE | 2018-08-01 20:45 | NUR ---
NURSE NOTES: Provided pt's daughter discharge summary and helped pt get dressed and ready for discharge; removed IV access and ID wristband. Escorted pt via wheelchair to daughter's car in stable condition and w/all belonging's accounted for.
== END 2018-08-01 20:45 | disposition home or self-care (01) | DRG 482 ==
LOC: EMR 20:42 → 3E 20:49 → EDBEDREQ 21:52 → 3E 07-25 00:15
PROC: 0QS704Z Reposition Left Upper Femur with Internal Fixation Device, Open Approach (ICD-10-PCS; principal; 2018-07-26 16:30)
DX: S72.145A Nondisplaced intertrochanteric fracture of left femur, initial encounter for closed fracture (principal); G20 Parkinson's disease; K59.00 Constipation, unspecified; F02.80 Dementia in other diseases classified elsewhere, unspecified severity, without behavioral disturbance, psychotic disturbance, mood disturbance, and anxiety; M41.9 Scoliosis, unspecified; W19.XXXA Unspecified fall, initial encounter; Y92.002 Bathroom of unspecified non-institutional (private) residence as the place of occurrence of the external cause; R11.0 Nausea; R53.1 Weakness; R29.6 Repeated falls; Z99.3 Dependence on wheelchair; I10 Essential (primary) hypertension; M19.90 Unspecified osteoarthritis, unspecified site; D64.9 Anemia, unspecified
CPT/HCPCS: 36415; 70450; 71045; 73502; 76000; 80048; 80053; 81001; 85025; 85610; 85730; 86850; 86900; 86901; 87086; 93005; 94003; 94150; 96361; 96374; 96375; 99285; J2405; J8499